=== PATIENT | male | born 1930 | race African-American/Black ===

== ENCOUNTER 2016-08-29 19:15 | Inpatient (IN) | payer BC, OTHER ==
--- NOTE | 2016-08-29 19:38 | PDOC ---
History of Present Illness - General History Source: Patient Exam Limitations: No Limitations - History of Present Illness Initial Comments: 08/29/16 19:41 The patient is a 86 year old male with a significant past medical history of HTN , NIDDM, HLD, who presents to the emergency department complaining of lower back pain s/p syncopal episode. Patient states he fell down but doesn't remember how long he was past out for. He states nobody witnessed the fall. He denies head pain, back pain. He denies nausea, vomiting, diarrhea. PCP: Dr. Chi PAST MEDICAL HISTORY: HTN, NIDDM, HLD PAST SURGICAL HISTORY: Abdominal hernia FAMILY HISTORY: no pertinent history SOCIAL HISTORY: Pt lives with family and is unemployed. MEDICATIONS: reviewed ALLERGIES: As per nursing notes ROS General: No fevers or chills, no weakness, no weight loss HEENT: No change in vision. No sore throat,. No ear pain CardioVascular: No chest pain or shortness of breath Respiratory:No cough, or wheezing. Gastrointestinal: no nausea, vomiting, diarrhea or constipation, No rectal bleeding Genitourinary: No dysuria, hematuria, or frequency Musculoskeletal: + lower back pain. Neurologic: No headache, vertigo, dizziness or loss of consciousness Psychiatric: nor depression Skin: No rashes or easy bruising Endocrine: no increased thirst or abnormal weight change Allergic: no skin or latex allergy All other systems reviewed and normal Exam: General: Well-nourished well-developed individual, no acute distress HEENT: Throat: Normal, tonsils normal, no erythema or exudate Neck: Supple, no meningeal signs, no lymphadenopathy Eyes::Pupils equal reactive and round, extraocular motion intact Chest: Nontender to palpation Cardiac: 2/6 systolic murmur. S1-S2 normal, regular rate and rhythm, no rubs or gallops Respiratory: Lungs clear to auscultation bilateral Abdomen: Soft, nondistended, normal bowel sounds, nontender to palpation diffusely Extremities: Warm, dry, no cyanosis, clubbing, or edema Skin: No rashes Neuro: Alert and oriented x3, nonfocal exam, grossly intact, normal gait Psych: Normal mood and affect <Boone Yeboah - Last Filed: 08/29/16 21:00> - General History Source: Patient Exam Limitations: No Limitations - History of Present Illness Initial Comments: 08/29/16 19:32 A portion of this note was documented by scribe services under my direction. I have reviewed the details of the note, within reason, and agree with the documentation. The case summary and management plan written by me. Assessment and plan: This is an 86 her old male who comes in complaining of coccyx pain status post fall 4 days ago. Patient had a syncopal event at that time and since then said he has been having feelings of dizziness and sensation he was going to pass out. Here in the emergency room patient had a heart rate in the 40s his EKG does show sinus rhythm at a rate of 49 with some new flipped T's laterally when compared to his EKG from 2009. Patient denies any chest pain or shortness of breath that he has been having some coughing. Chest x-ray shows no acute pathology when compared with prior chest x-ray. Coccyx x-ray shows no acute fracture. Hip x-rays show no fractures or dislocations of the prosthesis. Patient's glucose is markedly elevated at 508. He is being given normal saline and was also given 10 units of insulin. Patient is a [id number] diabetic. patient's potassium is mildly elevated at 5.4 which is most likely secondary to his elevated glucose and well returned to normal range with insulin. There are no peak T's or changes on his EKG suggestive of hyperkalemia. Patient will be admitted to a telemetry bed here at [facility] under the service of Dr. Elizondo. Patient's primary care doctor does not admit here in the covering doctor for the patient's primary is out of town so patient will be service patient. <Jarvis Dinh I - Last Filed: 08/29/16 22:31> - General Chief Complaint: Pain Stated Complaint: SACRAL PAIN, S/P FALL Time Seen by Provider: 08/29/16 19:32 Past History <Boone Yeboah - Last Filed: 08/29/16 21:00> - Past Medical History Diabetes: Yes Hypercholesterolemia: Yes - Surgical History Abdominal Surgery: Yes (HERNIA) - Psycho/Social/Smoking Cessation Hx Anxiety: No Suicidal Ideation: No Smoking Status: No Smoking History: Never smoked Number of Cigarettes Smoked Daily: 0 <Jarvis Dinh I - Last Filed: 08/29/16 22:31> - Past Medical History Allergies/Adverse Reactions: Allergies Allergy/AdvReac Type Severity Reaction Status Date / Time No Known Allergies Allergy Verified 08/29/16 19:33 Home Medications: Ambulatory Orders Aspirin [Aspirin EC] 81 mg PO DAILY 08/29/16 Cholecalciferol (Vitamin D3) [Vitamin D3 -] 1,000 unit PO DAILY 08/29/16 Clopidogrel Bisulfate [Clopidogrel] 75 mg PO DAILY 08/29/16 Fluticasone Propionate [Flovent Diskus] 50 mcg IH DAILY 08/29/16 Glimepiride 2 mg PO DAILY 08/29/16 Metoprolol Succinate [Toprol Xl] 50 mg PO DAILY 08/29/16 Simvastatin 40 mg PO HS 08/29/16 *Physical Exam - Vital Signs Last Vital Signs Temp Pulse Resp BP Pulse Ox 98.4 F 50 L 16 181/66 100 08/29/16 19:30 08/29/16 19:30 08/29/16 19:30 08/29/16 19:30 08/29/16 19:30 <Boone Yeboah - Last Filed: 08/29/16 21:00> ED Treatment Course - LABORATORY CBC & Chemistry Diagram: 08/29/16 20:10 08/29/16 20:10 <Boone Yeboah - Last Filed: 08/29/16 21:00> - LABORATORY CBC & Chemistry Diagram: 08/29/16 20:10 08/29/16 20:10 <Jarvis Dinh I - Last Filed: 08/29/16 22:31> *DC/Admit/Observation/Transfer - Attestations Scribe Attestion: 08/29/16 19:43 Documentation prepared by Boone Yeboah, acting as medical recruiter for Jarvis Dinh MD. <Boone Yeboah - Last Filed: 08/29/16 21:00> - Discharge Dispostion Admit: Yes <Jarvis Dinh I - Last Filed: 08/29/16 22:31> Diagnosis at time of Disposition: Hyperglycemia, Syncope, Bradycardia - Discharge Dispostion Condition at time of disposition: Good - Referrals Referrals: Guy Chi MD [Primary Care Provider] -
[2016-08-29 19:41] VITALS: BMI 24.9
[2016-08-29 20:51] LABS: BASOPHIL 1.3 % (0-2.0); EOSINOPHIL 5.4 % (0-4.5); MCH 26.8 pg (25.7-33.7); MCHC 32.8 g/dl (32.0-35.9); MEAN CELL VOLUME 81.4 fl (80-96); MEAN PLT VOLUME 8.2 fl (7.5-11.1); NEUTROPHILS 54.2 % (42.8-82.8); PLATELET COUNT 191 K/MM3 (134-434); RDW 13.8 % (11.9-15.9)
[2016-08-29 20:56] LABS: URINE APPEARANCE Clear; URINE BILIRUBIN Negative (NEGATIVE); URINE BLOOD Trace-lysed (NEGATIVE); URINE GLUCOSE (UA) 2+ (NEGATIVE); URINE KETONE Negative (NEGATIVE); URINE LEUK ESTERASE Negative (NEGATIVE); URINE NITRITE Negative (NEGATIVE); URINE UROBILINOGEN 0.2 E.U/dl (0.2-1.0)
[2016-08-29 20:57] LABS: ALBUMIN 3.7 g/dl (3.5-5.0); ALK PHOS 76 U/L (32-92); ANION GAP 9 (8-16); BILIRUBIN,TOTAL 0.5 mg/dl (0.2-1.0); CALCIUM 8.8 mg/dl (8.4-10.2); CO2 18 mmol/L (22-28); CREATININE 2.4 mg/dl (0.6-1.3); SGOT/AST 23 U/L (10-42); SGPT/ALT 13 U/L (10-40); TOT PROT 7.5 g/dl (6.4-8.3)
[2016-08-29 20:58] LABS: URINE COLOR YELLOW; URINE PROTEIN 1+ (NEGATIVE)
[2016-08-29 21:03] LABS: GLUCOSE,RANDOM 508 mg/dl (74-106)
[2016-08-29] MEDS ORDERED: INSULIN REGULAR HUMAN 100 UNITS/ML *VIAL IVPUSH ONE (21:03)
[2016-08-29] MEDS ORDERED: INSULIN REGULAR HUMAN 100 UNITS/ML *VIAL ONE (21:21)
[2016-08-29 21:29] LABS: TROPONIN I (DFP) 0.05 ng/ml (0.03-0.50)
[2016-08-29] MEDS ORDERED: SODIUM CHLORIDE 1,000 ML IV ONE (21:31)
[2016-08-29 21:53] LABS: CK MB 5.4 ng/ml (0.3-4.0)
[2016-08-29] MEDS ORDERED: HEMOQUE TEST 1 EACH EACH ONE (22:42)
--- NOTE | 2016-08-29 23:21 | HP ---
Admitting History and Physical - Primary Care Physician PCP: Christiana Elizondo - Admission History of Present Illness: The patient is a 86 year old male with a significant past medical history of HTN , NIDDM, HLD, who presents to the emergency department complaining of lower back pain s/p syncopal episode LAST WEEK DAY [place] DID NOT GO SEE DOCTOR THERE. Patient states he fell down but doesn't remember how long he was past out for. He states nobody witnessed the fall. He denies head pain, back pain. He denies nausea, vomiting, diarrhea. PCP: Dr. Chi - Past Medical History Cardiovascular: Yes: HTN, Hyperlipdemia Endocrine: Yes: Diabetes Mellitus - Smoking History Smoking history: Never smoked Have you smoked in the past 12 months: No Aproximately how many cigarettes per day: 0 If you are a former smoker, when did you quit?: 47 YEARS AGO - Alcohol/Substance Use Hx Alcohol Use: No Home Medications - Allergies Allergies/Adverse Reactions: Allergies Allergy/AdvReac Type Severity Reaction Status Date / Time No Known Allergies Allergy Verified 08/29/16 19:33 - Home Medications Home Medications: Ambulatory Orders Aspirin [Aspirin EC] 81 mg PO DAILY 08/29/16 Cholecalciferol (Vitamin D3) [Vitamin D3 -] 1,000 unit PO DAILY 08/29/16 Clopidogrel Bisulfate [Clopidogrel] 75 mg PO DAILY 08/29/16 Fluticasone Propionate [Flovent Diskus] 50 mcg IH DAILY 08/29/16 Simvastatin 40 mg PO HS 08/29/16 Ezetimibe [Zetia -] 10 mg PO DAILY #30 tablet 08/31/16 Insulin (Levemir) [Levemir Vial] 12 units SQ HS #7 ml 08/31/16 Insulin Sliding Scale [Novolog Vial Sliding Scale -] 1 vial SQ TIDAC #7 units Metoprolol Succinate [Toprol XL -] 25 mg PO DAILY #30 bottle 08/31/16 Miscellaneous Medical Supply [Outpatient Order] 1 each ASDIR #1 misc Miscellaneous Medical Supply [Outpatient Order] 1 each ASDIR #1 misc Miscellaneous Medical Supply [Outpatient Order] 1 each ASDIR #1 misc Sodium Bicarbonate - 650 mg PO DAILY #30 tablet 08/31/16 Physical Examination Vital Signs: Vital Signs Temperature 98.4 F 08/29/16 19:30 Pulse Rate 50 L 08/29/16 21:25 Respiratory Rate 16 08/29/16 21:25 Blood Pressure 138/70 08/29/16 21:25 O2 Sat by Pulse Oximetry (%) 100 08/29/16 21:25 Constitutional: Yes: No Distress HENT: Yes: Atraumatic Neck: Yes: Supple Cardiovascular: Yes: Regular Rate and Rhythm Respiratory: Yes: CTA Bilaterally Gastrointestinal: Yes: Normal Bowel Sounds Extremities: Yes: WNL Neurological: Yes: Alert, Oriented Problem List - Problems (1) Bradycardia Assessment/Plan: will monitor on tele hold BB Code(s): R00.1 - BRADYCARDIA, UNSPECIFIED (2) Hyperglycemia Assessment/Plan: uncontrolled dm will check bgms adjust meds Code(s): R73.9 - HYPERGLYCEMIA, UNSPECIFIED (3) Syncope Assessment/Plan: not dizzy now Code(s): R55 - SYNCOPE AND COLLAPSE Qualifiers: Syncope type: unspecified Qualified Code(s): R55 - Syncope and collapse (4) Arthritis Assessment/Plan: prn tylenol Code(s): M19.90 - UNSPECIFIED OSTEOARTHRITIS, UNSPECIFIED SITE Assessment/Plan Laboratory Tests 08/29/16 08/29/16 08/29/16 20:10 20:10 20:10 WBC 5.0 RBC 4.93 Hgb 13.2 Hct 40.1 MCV 81.4 MCHC 32.8 RDW 13.8 Plt Count 191 MPV 8.2 Neutrophils % 54.2 Lymphocytes % 30.5 Monocytes % 8.6 Eosinophils % 5.4 H Basophils % 1.3 Sodium 130 L Potassium 5.4 H Chloride 103 Carbon Dioxide 18 L Anion Gap 9 BUN 29 H Creatinine 2.4 H Creat Clearance w eGFR 25.80 POC Glucometer Random Glucose 508 H* Calcium 8.8 Total Bilirubin 0.5 AST 23 ALT 13 Alkaline Phosphatase 76 Creatine Kinase 176 H CK-MB (CK-2) 5.4 H CK-MB (CK-2) Rel Index 3.0 Troponin I 0.05 Total Protein 7.5 Albumin 3.7 Urine Color Urine Appearance Urine pH Ur Specific [place] Urine Protein Urine Glucose (UA) Urine Ketones Urine Blood Urine Nitrite Urine Bilirubin Urine Urobilinogen Ur Leukocyte Esterase 08/29/16 08/29/16 08/29/16 20:10 20:45 22:45 WBC RBC Hgb Hct MCV MCHC RDW Plt Count MPV Neutrophils % Lymphocytes % Monocytes % Eosinophils % Basophils % Sodium Potassium Chloride Carbon Dioxide Anion Gap BUN Creatinine Creat Clearance w eGFR POC Glucometer [phone] Random Glucose Calcium Total Bilirubin AST ALT Alkaline Phosphatase Creatine Kinase CK-MB (CK-2) Cancelled CK-MB (CK-2) Rel Index Troponin I Total Protein Albumin Urine Color Yellow Urine Appearance Clear Urine pH 5.0 Ur Specific [place] <= 1.005 Urine Protein 1+ H Urine Glucose (UA) 2+ H Urine Ketones Negative Urine Blood Trace-lysed Urine Nitrite Negative Urine Bilirubin Negative Urine Urobilinogen 0.2 e.u/dl Ur Leukocyte Esterase Negative Active Medications Generic Name Dose Route Start Last Admin Trade Name Freq PRN Reason Stop Dose Admin Aspirin 81 mg 08/30/16 10:00 09/01/16 09:28 Ecotrin - PO 81 mg DAILY JUMA Administration Atorvastatin Calcium 20 mg 08/30/16 22:00 08/31/16 21:47 Lipitor - PO 20 mg HS JUMA Administration Clopidogrel Bisulfate 75 mg 08/30/16 10:00 09/01/16 09:28 Plavix - PO 75 mg DAILY JUMA Administration Ezetimibe 10 mg 08/31/16 17:00 09/01/16 09:28 Zetia - PO 10 mg DAILY JUMA Administration Insulin Aspart 1 vial 08/30/16 11:30 09/01/16 12:15 Novolog Vial Sliding Scale - SQ 6 units TIDAC [facility] Administration Protocol Insulin Aspart 0 units 08/30/16 22:00 08/31/16 21:48 Novolog SQ Not Given HS [facility] Protocol Insulin Detemir 12 units 08/31/16 22:00 08/31/16 21:48 Levemir Vial SQ 12 units HS JUMA Administration Metoprolol Succinate 25 mg 08/30/16 10:00 09/01/16 09:28 Toprol Xl - PO 25 mg DAILY JUMA Administration Sodium Bicarbonate 650 mg 08/30/16 10:00 09/01/16 09:28 Sodium Bicarbonate - PO 650 mg DAILY JUMA Administration
[2016-08-30] MEDS ORDERED: INSULIN SLIDING SCALE (NOVOLOG) 1 VIAL SQ SCH (07:00)
--- NOTE | 2016-08-30 07:58 | CON.CARD ---
Consult Consult Specialty:: Cardiology Referred by:: Christiana Elizondo Reason for Consultation:: Syncope - History of Present Illness Chief Complaint: Syncope History of Present Illness: The patient is a 86 year old male with a significant past medical history of CAD s/p PCI(stent), angina pectoris, HTN, NIDDM, HLD, who presents to the emergency department post syncopal episode, preceded by light-headedness. He denies chest pain, dyspnea,palpitations,orthopnea, PND,head trauma or LE edema. PCP: Dr. Chi PAST MEDICAL HISTORY: HTN, NIDDM, HLD PAST SURGICAL HISTORY: Abdominal hernia FAMILY HISTORY: no pertinent history SOCIAL HISTORY: Pt lives with family and is unemployed. MEDICATIONS: reviewed ALLERGIES: As per nursing notes - History Source History Provided By: Patient Limitations to Obtaining History: Poor Historian - Past Medical History Cardio/Vascular: Yes: HTN, Hyperlipdemia Endocrine: Yes: Diabetes Mellitus - Alcohol/Substance Use Hx Alcohol Use: No - Smoking History Smoking history: Never smoked Have you smoked in the past 12 months: No Aproximately how many cigarettes per day: 0 If you are a former smoker, when did you quit?: 47 YEARS AGO Home Medications - Allergies Allergies/Adverse Reactions: Allergies Allergy/AdvReac Type Severity Reaction Status Date / Time No Known Allergies Allergy Verified 08/29/16 19:33 - Home Medications Home Medications: Ambulatory Orders Aspirin [Aspirin EC] 81 mg PO DAILY 08/29/16 Cholecalciferol (Vitamin D3) [Vitamin D3 -] 1,000 unit PO DAILY 08/29/16 Clopidogrel Bisulfate [Clopidogrel] 75 mg PO DAILY 08/29/16 Fluticasone Propionate [Flovent Diskus] 50 mcg IH DAILY 08/29/16 Glimepiride 2 mg PO DAILY 08/29/16 Metoprolol Succinate [Toprol Xl] 50 mg PO DAILY 08/29/16 Simvastatin 40 mg PO HS 08/29/16 Review of Systems - Review of Systems Neurological: reports: Syncope Vital Signs: Vital Signs Temperature 98.4 F 08/30/16 06:36 Pulse Rate 58 L 08/30/16 06:36 Respiratory Rate 17 08/30/16 06:36 Blood Pressure 152/36 08/30/16 06:36 O2 Sat by Pulse Oximetry (%) 100 08/30/16 06:36 Constitutional: Yes: No Distress, Calm Neck: Yes: Supple Respiratory: Yes: Regular, Diminished Gastrointestinal: Yes: Normal Bowel Sounds, Soft Cardiovascular: Yes: Regular Rate and Rhythm JVD: No Heart Sounds: Yes: S1, S2 Murmur: Yes: Systolic Murmur, Grade 1 Edema: No - Other Data SB @ 49 LVH with repol abnl Imaging - Results Cat Scan: Report Reviewed (No bleed) Problem List - Problems (1) Bradycardia Code(s): R00.1 - BRADYCARDIA, UNSPECIFIED (2) Syncope Code(s): R55 - SYNCOPE AND COLLAPSE Qualifiers: Syncope type: unspecified Qualified Code(s): R55 - Syncope and collapse (3) Hypertensive cardiomyopathy Code(s): I11.9 - HYPERTENSIVE HEART DISEASE WITHOUT HEART FAILURE I42.9 - CARDIOMYOPATHY, UNSPECIFIED Qualifiers: Heart failure presence: without heart failure Qualified Code(s): I11.9 - Hypertensive heart disease without heart failure (4) Hyperlipemia Code(s): E78.5 - HYPERLIPIDEMIA, UNSPECIFIED Qualifiers: Hyperlipidemia type: pure hypercholesterolemia Qualified Code(s): E78.00 - Pure hypercholesterolemia, unspecified; E78.0 - Pure hypercholesterolemia (5) Type 2 diabetes mellitus Code(s): E11.9 - TYPE 2 DIABETES MELLITUS WITHOUT COMPLICATIONS Qualifiers: Diabetes mellitus complication status: without complication Assessment/Plan 1.Syncopal episode suspect neurocardiogenic etiology 2. CAD s/p PCI(stent), angina pectoris 3. HTN/HCVD 4. Type 2 DM 5. Hyperlipidemia 6. CKD with hyperkalemia 7. Hyponatremia P:1.Check orthostatic vital signs, monitor and storage bin tender to evaluate for sustained arrhythmia 2. Echocardiogram to assess LV and valve fxn 3. Continue ASA 81 qd, Plavix 75 qd, decrease Toprol XL 25 qd, Lipitor 20 qhs, ideally JL-I/ARB once renal fxn stabilizes and hyperkalemia resolves 4. Thank you for consultative opportunity
--- NOTE | 2016-08-30 08:50 | CONSULT ---
Consult Consult Specialty:: Endocrinoology Referred by:: Dr Elizondo Reason for Consultation:: HYperglycemia - History of Present Illness Chief Complaint: Fall History of Present Illness: This is a 86 year old male with history of HTN, NIDDM for 25 years, HLD, ,CAD s /p stent, CDK (Cr 2.2 in 2015) who presents to the emergency department complaining of lower back pain s/p syncopal episode. Patient states he fell down but doesn't remember how long he was passed out for. Says he got up on hit own. He states nobody witnessed the fall. He was visiting his son in [place]. Gives h/o taking Insulin many years ago. Currently takes Glimepiride and doesn' t do BGM at home. - History Source History Provided By: Patient, Medical Record Limitations to Obtaining History: Poor Historian - Past Medical History Cardio/Vascular: Yes: HTN, Hyperlipdemia Endocrine: Yes: Diabetes Mellitus - Alcohol/Substance Use Hx Alcohol Use: No - Smoking History Smoking history: Never smoked Have you smoked in the past 12 months: No Aproximately how many cigarettes per day: 0 If you are a former smoker, when did you quit?: 47 YEARS AGO Home Medications - Allergies Allergies/Adverse Reactions: Allergies Allergy/AdvReac Type Severity Reaction Status Date / Time No Known Allergies Allergy Verified 08/29/16 19:33 - Home Medications Home Medications: Ambulatory Orders Aspirin [Aspirin EC] 81 mg PO DAILY 08/29/16 Cholecalciferol (Vitamin D3) [Vitamin D3 -] 1,000 unit PO DAILY 08/29/16 Clopidogrel Bisulfate [Clopidogrel] 75 mg PO DAILY 08/29/16 Fluticasone Propionate [Flovent Diskus] 50 mcg IH DAILY 08/29/16 Glimepiride 2 mg PO DAILY 08/29/16 Metoprolol Succinate [Toprol Xl] 50 mg PO DAILY 08/29/16 Simvastatin 40 mg PO HS 08/29/16 Family Disease History - Family Disease History Other Family History: Denies any family h/o DM Review of Systems - Review of Systems Constitutional: reports: No Symptoms Eyes: reports: No Symptoms HENT: reports: No Symptoms Neck: reports: No Symptoms Cardiovascular: reports: No Symptoms Respiratory: reports: No Symptoms Gastrointestinal: reports: No Symptoms Genitourinary: reports: No Symptoms Musculoskeletal: reports: Back Pain Neurological: reports: No Symptoms Endocrine: reports: No Symptoms Physical Exam Vital Signs: Vital Signs Temperature 98.4 F 08/30/16 06:36 Pulse Rate 58 L 08/30/16 06:36 Respiratory Rate 08/30/16 06:36 Blood Pressure 152/36 08/30/16 06:36 O2 Sat by Pulse Oximetry (%) 100 08/30/16 06:36 Constitutional: Yes: No Distress, Calm Eyes: Yes: Conjunctiva Clear, EOM Intact HENT: Yes: Atraumatic, Normocephalic Neck: Yes: Supple, Trachea Midline Cardiovascular: Yes: Regular Rate and Rhythm Respiratory: Yes: Regular, CTA Bilaterally Gastrointestinal: Yes: Normal Bowel Sounds Extremities: Yes: WNL Edema: No Neurological: Yes: Alert, Oriented Assessment/Plan AP: T2DM with hyperglycemia: Check HBA1c D/C Glimepiride Novlog SS coverage Will Check with PCP if any contraindication to DPP4s May need insulin Nutrition consult Start Levemir 10 units daily at HS Syncopal episode CAD s/p PCI(stent): Cardiloogy consult noted HTN/HCVD Hyperlipidemia CKD
--- NOTE | 2016-08-30 09:00 | PN ---
Progress Note (short form) - Note Progress Note: Renal Consult for MIRIAM vs. CKD This is a 86 year old Gentleman with PMhx of, ? CKD (Cr 2.2 in 2015), CAD s/p PCI and stenting, Hypertension, Insulin dependent DM, Hyperlpidemia who presented s/p syncope with history of back pain and found to have BUN/Cr of 89/ 2.4. Pt denies any history of CKD as far as her knows. NO Hx of stones or recurrent UTI. Denies any NSAID use. No recent contrast exposure. Reports frequent urination. No dysuria. No flank pain. No rash. No recent abx use. No SOB, chest pain, Abd pain, N/v/D, Fever, chills. PMHx: as above Allergies: NKDA Family hx: NC Social Hx: No T/A/D ROS: as per HPI, all other perteinnet ros negative Home Meds: Home Medications Medication Instructions Recorded Aspirin [Aspirin EC] 81 mg PO DAILY 08/29/16 Cholecalciferol (Vitamin D3) 1,000 unit PO DAILY 08/29/16 [Vitamin D3 -] Clopidogrel Bisulfate [Clopidogrel] 75 mg PO DAILY 08/29/16 Fluticasone Propionate [Flovent 50 mcg IH DAILY 08/29/16 Diskus] Glimepiride 2 mg PO DAILY 08/29/16 Metoprolol Succinate [Toprol Xl] 50 mg PO DAILY 08/29/16 Simvastatin 40 mg PO HS 08/29/16 Vital Signs Temperature 98.4 F 08/30/16 06:36 Pulse Rate 58 L 08/30/16 06:36 Respiratory Rate 17 08/30/16 06:36 Blood Pressure 152/36 08/30/16 06:36 O2 Sat by Pulse Oximetry (%) 100 08/30/16 06:36 Intake & Output 08/27/16 08/28/16 08/29/16 08/30/16 23:59 23:59 23:59 23:59 Weight 145 lb Gen: NAD, awake and alert HEENT: NC/AT, MMM, No JVD CVS: RRR, No M/R Lungs: CTA, no rales or wheeze Abd: soft NT/ND Ext: No edema, clubbing or cyanosis : No overt bladder distension Neuro: Awake and alert, no focal defects CBC, BMP 08/29/16 20:10 04/10/17 20:10 Laboratory Tests 08/29/16 08/29/16 08/29/16 20:10 20:10 20:10 Eosinophils % 5.4 H Random Glucose 508 H* Calcium 8.8 Creatine Kinase 176 H CK-MB (CK-2) 5.4 H Troponin I 0.05 Albumin 3.7 Urine pH Ur Specific [place] Urine Protein Urine Glucose (UA) 08/29/16 20:45 Eosinophils % Random Glucose Calcium Creatine Kinase CK-MB (CK-2) Troponin I Albumin Urine pH 5.0 Ur Specific [place] <= 1.005 Urine Protein 1+ H Urine Glucose (UA) 2+ H A/P 86 year old Gentleman with PMhx of, ? CKD (Cr 2.2 in 2014), CAD s/p PCI and stenting, Hypertension, Insulin dependent DM, Hyperlpidemia who presented s/p syncope with history of back pain and found to have BUN/Cr of 89/2.4 #MIRIAM vs. CKD Will obtain recoreds from PMD office Check UPCR, FeNa, FeUrea US of kidney and bladder r/o obstruction vs. retention Trial of IVF: NS at 75cc per hour x 24 hours Dose all meds for Cr Cl ~30 no indication for [employer] avoid NSAIDS, JL/ARB for now AM labs pending #Metabolic Acidosis Anion gap 9, likely etiology is CKD Check Urine anion gap Start Sodium Bicarb 650mg Daily #Hyperkalemia likely secondary to MIRIAM/CKD low K diet Trend K #Syncope Cardiology following #Hypertension continue metoprolol if BP not controlled can add CCB (Norvasc) #Hyperglycemia/IDDM Endocrine following #Pseudohyponatremia Corrected Na is 140 #Elevated CPK secondary to fall vs. statin Trend levels Thank you Dean Archer DO
[2016-08-30] MEDS: CLOPIDOGREL BISULFATE 75 MG TABLET (FP) PO SCH (09:39)
[2016-08-30] MEDS: ASPIRIN COATED 81 MG TABLET.EC PO SCH (09:39)
[2016-08-30] MEDS: SODIUM BICARBONATE 650 MG TABLET PO SCH (09:39)
[2016-08-30] MEDS: METOPROLOL SUCCINATE 25 MG TAB.SR.24H (FP) PO SCH (09:40)
[2016-08-30] MEDS: SODIUM CHLORIDE 1,000 ML IV SCH (09:40)
[2016-08-30] MEDS ORDERED: METOPROLOL SUCCINATE 25 MG TAB.SR.24H (FP) PO SCH (10:00)
[2016-08-30] MEDS ORDERED: GLIMEPIRIDE 2 MG TABLET (FP) PO SCH (10:00)
[2016-08-30] MEDS: INSULIN SLIDING SCALE (NOVOLOG) 1 VIAL SQ SCH ×2 (11:30→16:30)
--- NOTE | 2016-08-30 13:40 | EKG ---
Test Reason : Blood Pressure : / mmHG Vent. Rate : 049 BPM Atrial Rate : 049 BPM P-R Int : 182 ms QRS Dur : 078 ms QT Int : 438 ms P-R-T Axes : 061 -32 113 degrees QTc Int : 395 ms SINUS BRADYCARDIA POSSIBLE LEFT ATRIAL ENLARGEMENT LEFT AXIS DEVIATION LEFT VENTRICULAR HYPERTROPHY T WAVE ABNORMALITY, CONSIDER LATERAL ISCHEMIA ABNORMAL ECG WHEN COMPARED WITH ECG OF 05-OCT-2009 12:41, ST NO LONGER ELEVATED IN LATERAL LEADS T WAVE INVERSION NOW EVIDENT IN LATERAL LEADS CLINICAL CORRELATION IS RECOMMENDED Confirmed by ALTA WOOD, AUREA ([id number]) on 08/30/2016 1:40:11 PM Referred By: BRENDAN Confirmed By:AUREA HOLM MD
--- NOTE | 2016-08-30 14:57 | PN ---
Progress Note, Physician History of Present Illness: tail bone pain - Current Medication List Current Medications: Active Medications Aspirin (Ecotrin -) 81 mg PO DAILY JUMA Atorvastatin Calcium (Lipitor -) 20 mg PO HS JUMA Clopidogrel Bisulfate (Plavix -) 75 mg PO DAILY JUMA Sodium Chloride (Normal Saline -) 1,000 mls @ 75 mls/hr IV ASDIR JUMA Insulin Aspart (Novolog Vial Sliding Scale -) 1 vial SQ TIDAC JUMA PRN Reason: Protocol Insulin Aspart (Novolog) 0 units SQ HS JUMA PRN Reason: Protocol Metoprolol Succinate (Toprol Xl -) 25 mg PO DAILY JUMA Sodium Bicarbonate (Sodium Bicarbonate -) 650 mg PO DAILY JUMA - Objective Vital Signs: Vital Signs Temperature 98.2 F 08/30/16 14:16 Pulse Rate 56 L 08/30/16 14:16 Respiratory Rate 18 08/30/16 14:16 Blood Pressure 119/57 08/30/16 14:16 O2 Sat by Pulse Oximetry (%) 100 08/30/16 14:16 Constitutional: Yes: No Distress HENT: Yes: Atraumatic Neck: Yes: Supple Cardiovascular: Yes: Regular Rate and Rhythm Respiratory: Yes: CTA Bilaterally Gastrointestinal: Yes: Normal Bowel Sounds Extremities: Yes: WNL Neurological: Yes: Alert, Oriented Problem List - Problems (1) Bradycardia Assessment/Plan: will monitor on tele hold BB Code(s): R00.1 - BRADYCARDIA, UNSPECIFIED (2) Hyperglycemia Assessment/Plan: uncontrolled dm will check bgms adjust meds Code(s): R73.9 - HYPERGLYCEMIA, UNSPECIFIED (3) Syncope Assessment/Plan: not dizzy now Code(s): R55 - SYNCOPE AND COLLAPSE Qualifiers: Syncope type: unspecified Qualified Code(s): R55 - Syncope and collapse (4) Arthritis Assessment/Plan: prn tylenol Code(s): M19.90 - UNSPECIFIED OSTEOARTHRITIS, UNSPECIFIED SITE
[2016-08-30 19:18] LABS: ALK PHOS 58 U/L (32-92); ANION GAP 7 (8-16); BILIRUBIN,TOTAL 0.6 mg/dl (0.2-1.0); CALCIUM 8.6 mg/dl (8.4-10.2); CO2 21 mmol/L (22-28); CREATININE 2.1 mg/dl (0.6-1.3); GLUCOSE,RANDOM 224 mg/dl (74-106); PHOSPHOROUS 2.3 mg/dl (2.5-4.6); SGOT/AST 24 U/L (10-42); SGPT/ALT 13 U/L (10-40); TOT PROT 6.1 g/dl (6.4-8.3)
[2016-08-30] MEDS: ATORVASTATIN CA 20 MG TABLET (FP) PO SCH (21:11)
[2016-08-30] MEDS ORDERED: INSULIN DETEMIR 100 UNITS/ML MDV SQ SCH (22:00)
[2016-08-30 22:11] LABS: URINE CREATININE 41.4 mg/dL
[2016-08-31] MEDS: Insulin (LOG) Aspart 100 UNITS/ML VIAL SQ SCH ×2 (06:59→21:48)
[2016-08-31] MEDS: INSULIN SLIDING SCALE (NOVOLOG) 1 VIAL SQ SCH ×3 (07:00→17:07)
[2016-08-31 08:46] LABS: BASOPHIL 0.8 % (0-2.0); EOSINOPHIL 6.6 % (0-4.5); MCH 26.6 pg (25.7-33.7); MCHC 32.7 g/dl (32.0-35.9); MEAN CELL VOLUME 81.3 fl (80-96); MEAN PLT VOLUME 7.6 fl (7.5-11.1); NEUTROPHILS 55.2 % (42.8-82.8); PLATELET COUNT 183 K/MM3 (134-434); RDW 13.5 % (11.9-15.9); WHITE BLOOD COUNT 4.1 K/mm3 (4.0-10.0)
--- NOTE | 2016-08-31 08:49 | PN ---
Progress Note (short form) - Note Progress Note: Denies any complaints Blood sugar better today morning on Levemir NO hypos Vital Signs Period Temp Pulse Resp BP Sys/Salmeron Pulse Ox Last 24 Hr 98.2 F-99.0 F 56-65 16-18 119-155/57-59 95-100 PE:Awake alert HEENT: PERRL, EOMI Neck: Supple, No JVD Lungs: CTA CVS: S1S2 Abd: Benign Ext: No edema Neuro: No focal deficit CMP Sodium 135 mmol/L (136-145) L 08/30/16 09:12 Potassium 4.1 mmol/L (3.5-5.1) D 08/30/16 09:12 Chloride 107 mmol/L (98-107) 08/30/16 09:12 Carbon Dioxide 21 mmol/L (22-28) L 08/30/16 09:12 Anion Gap 7 (8-16) L 08/30/16 09:12 BUN 24 mg/dl (7-18) H 08/30/16 09:12 Creatinine 2.1 mg/dl (0.6-1.3) H 08/30/16 09:12 Creat Clearance w eGFR 30.09 (>60) 08/30/16 09:12 POC Glucometer 197 UNITS (()) 08/31/16 05:33 Random Glucose 224 mg/dl (74-106) H D 08/30/16 09:12 Calcium 8.6 mg/dl (8.4-10.2) 08/30/16 09:12 Phosphorus 2.3 mg/dl (2.5-4.6) L 08/30/16 09:12 Total Bilirubin 0.6 mg/dl (0.2-1.0) 08/30/16 09:12 AST 24 U/L (10-42) 08/30/16 09:12 ALT 13 U/L (10-40) 08/30/16 09:12 Alkaline Phosphatase 58 U/L (32-92) D 08/30/16 09:12 Creatine Kinase 176 IU/L (38-174) H 08/29/16 20:10 CK-MB (CK-2) 5.4 ng/ml (0.3-4.0) H 08/29/16 20:10 CK-MB (CK-2) Rel Index 3.0 % (0.0-5.0) 08/29/16 20:10 Troponin I 0.05 ng/ml (0.03-0.50) 08/29/16 20:10 Total Protein 6.1 g/dl (6.4-8.3) L 08/30/16 09:12 Albumin 3.0 g/dl (3.5-5.0) L 08/30/16 09:12 Current Medications Generic Name Dose Route Start Last Admin Trade Name Edward PRN Reason Stop Dose Admin Aspirin 81 mg 08/30/16 10:00 08/30/16 09:39 Ecotrin - PO 81 mg DAILY JUMA Administration Atorvastatin Calcium 20 mg 08/30/16 22:00 08/30/16 21:11 Lipitor - PO 20 mg HS JUMA Administration Clopidogrel Bisulfate 75 mg 08/30/16 10:00 08/30/16 09:39 Plavix - PO 75 mg DAILY JUMA Administration Sodium Chloride 1,000 mls @ 75 mls/hr 08/30/16 09:15 08/30/16 09:40 Normal Saline - IV 75 mls/hr ASDIR JUMA Administration Insulin Aspart 1 vial 08/30/16 11:30 08/31/16 07:00 Novolog Vial Sliding Scale - SQ 4 units TIDAC [facility] Administration Protocol Insulin Aspart 0 units 08/30/16 22:00 08/31/16 06:59 Novolog SQ 4 units HS [facility] Administration Protocol Insulin Detemir 10 units 08/30/16 22:00 08/30/16 21:12 Levemir Vial SQ 10 units HS JUMA Administration Metoprolol Succinate 25 mg 08/30/16 10:00 08/30/16 09:40 Toprol Xl - PO 25 mg DAILY JUMA Administration Sodium Bicarbonate 650 mg 08/30/16 10:00 08/30/16 09:39 Sodium Bicarbonate - PO 650 mg DAILY JUMA Administration AP: T2DM: BGM QACHS Increase Levemer 12 unts daily at HS NOvolog SS HBA1C Pending Teach pt to self inject insulin. Pt says he has used it in the past. If patient is able to do it, will discharge on Insulin Will f/u HTN CAD Syncope CKD HLD
[2016-08-31 08:58] LABS: ALBUMIN 2.8 g/dl (3.5-5.0); ALK PHOS 51 U/L (32-92); ANION GAP 6 (8-16); BILIRUBIN,TOTAL 0.8 mg/dl (0.2-1.0); CALCIUM 8.4 mg/dl (8.4-10.2); CHOLESTEROL 207 mg/dl; CO2 21 mmol/L (22-28); CREATININE 1.8 mg/dl (0.6-1.3); GLUCOSE,RANDOM 199 mg/dl (74-106); MAGNESIUM 1.8 mg/dL (1.8-2.4); PHOSPHOROUS 3.1 mg/dl (2.5-4.6); SGOT/AST 17 U/L (10-42); SGPT/ALT 12 U/L (10-40); TOT PROT 5.5 g/dl (6.4-8.3)
[2016-08-31] MEDS: METOPROLOL SUCCINATE 25 MG TAB.SR.24H (FP) PO SCH (10:56)
[2016-08-31] MEDS: SODIUM CHLORIDE 1,000 ML IV SCH (10:56)
[2016-08-31] MEDS: ASPIRIN COATED 81 MG TABLET.EC PO SCH (10:56)
[2016-08-31] MEDS: SODIUM BICARBONATE 650 MG TABLET PO SCH (10:56)
[2016-08-31] MEDS: CLOPIDOGREL BISULFATE 75 MG TABLET (FP) PO SCH (10:56)
--- NOTE | 2016-08-31 11:08 | PN ---
Progress Note (short form) - Note Progress Note: Renal Follow up for MIRIAM vs. CKD Pt seen and examined at the bedside awake and alert no acute complaints on IVF denies any sob, chest pain no N/V/D Vital Signs Temperature 99.4 F 08/31/16 09:31 Pulse Rate 78 08/31/16 09:31 Respiratory Rate 18 08/31/16 09:31 Blood Pressure 137/63 08/31/16 09:31 O2 Sat by Pulse Oximetry (%) 95 08/31/16 08:15 Intake & Output 08/28/16 08/29/16 08/30/16 08/31/16 23:59 23:59 23:59 23:59 Intake Total 2150 450 Output Total 800 600 Balance 1350 -150 Weight 145 lb Gen: NAD CVS: RRR, + sytolic murmur Lungs: CTA Abd: soft NT/ND Ext: No edema, clubbing or cyanosis CBC, BMP 08/31/16 07:00 08/31/16 07:00 Laboratory Tests 08/31/16 07:00 Calcium 8.4 Phosphorus 3.1 D Magnesium 1.8 Albumin 2.8 L Current Medications Aspirin (Ecotrin -) 81 mg PO DAILY [facility] Last Admin: 08/31/16 10:56 Dose: 81 mg Atorvastatin Calcium (Lipitor -) 20 mg PO HS [facility] Last Admin: 08/30/16 21:11 Dose: 20 mg Clopidogrel Bisulfate (Plavix -) 75 mg PO DAILY [facility] Last Admin: 08/31/16 10:56 Dose: 75 mg Sodium Chloride (Normal Saline -) 1,000 mls @ 75 mls/hr IV ASDIR [facility] Last Admin: 08/31/16 10:56 Dose: 75 mls/hr Insulin Aspart (Novolog Vial Sliding Scale -) 1 vial SQ TIDAC [facility] PRN Reason: Protocol Last Admin: 08/31/16 07:00 Dose: 4 units Insulin Aspart (Novolog) 0 units SQ HS [facility] PRN Reason: Protocol Last Admin: 08/31/16 06:59 Dose: 4 units Insulin Detemir (Levemir Vial) 12 units SQ HS [facility] Metoprolol Succinate (Toprol Xl -) 25 mg PO DAILY [facility] Last Admin: 08/31/16 10:56 Dose: 25 mg Sodium Bicarbonate (Sodium Bicarbonate -) 650 mg PO DAILY [facility] Last Admin: 08/31/16 10:56 Dose: 650 mg A/P 86 year old Gentleman with PMhx of, ? CKD (Cr 2.2 in 2015), CAD s/p PCI and stenting, Hypertension, Insulin dependent DM, Hyperlpidemia who presented s/p syncope with history of back pain and found to have BUN/Cr of 89/2.4 #MIRIAM vs. CKD Renal function is improved awaiting records form PMD office continue fluids for now Dose all meds for Cr Cl less then 30 #Metabolic Acidosis Continue PO sodium bicarb #Hyperkalemia now improved #Syncope Cardiology following #Hypertension continue metoprolol if BP not controlled can add CCB (Norvasc) #Hyperglycemia/IDDM Endocrine following #Elevated CK repeat levels today Thank you Dean Archer DO
[2016-08-31 11:51] LABS: THYROID STIMULATING HORMONE 1.38 uIU/ml (0.358-3.74)
--- NOTE | 2016-08-31 16:41 | PN ---
Progress Note, Physician History of Present Illness: No further near or true syncope, no events on telemetry. - Current Medication List Current Medications: Active Medications Aspirin (Ecotrin -) 81 mg PO DAILY [facility] Last Admin: 08/31/16 10:56 Dose: 81 mg Atorvastatin Calcium (Lipitor -) 20 mg PO HS [facility] Last Admin: 08/30/16 21:11 Dose: 20 mg Clopidogrel Bisulfate (Plavix -) 75 mg PO DAILY [facility] Last Admin: 08/31/16 10:56 Dose: 75 mg Sodium Chloride (Normal Saline -) 1,000 mls @ 75 mls/hr IV ASDIR [facility] Last Admin: 08/31/16 10:56 Dose: 75 mls/hr Insulin Aspart (Novolog Vial Sliding Scale -) 1 vial SQ TIDAC [facility] PRN Reason: Protocol Last Admin: 08/31/16 07:00 Dose: 4 units Insulin Aspart (Novolog) 0 units SQ HS [facility] PRN Reason: Protocol Last Admin: 08/31/16 06:59 Dose: 4 units Insulin Detemir (Levemir Vial) 12 units SQ HS [facility] Metoprolol Succinate (Toprol Xl -) 25 mg PO DAILY [facility] Last Admin: 08/31/16 10:56 Dose: 25 mg Sodium Bicarbonate (Sodium Bicarbonate -) 650 mg PO DAILY [facility] Last Admin: 08/31/16 10:56 Dose: 650 mg - Objective Vital Signs: Vital Signs Temperature 98.4 F 08/31/16 14:20 Pulse Rate 59 L 08/31/16 14:20 Respiratory Rate 18 08/31/16 14:20 Blood Pressure 140/52 08/31/16 14:20 O2 Sat by Pulse Oximetry (%) 100 08/31/16 14:20 Constitutional: Yes: No Distress, Calm Neck: Yes: Supple Cardiovascular: Yes: Regular Rate and Rhythm, Murmur (2/6 SM), S1, S2 Respiratory: Yes: Regular, CTA Bilaterally Gastrointestinal: Yes: Normal Bowel Sounds Edema: No Labs: CBC, BMP 08/31/16 07:00 08/31/16 07:00 - ....Imaging EKG: Report Reviewed (Tele:SR) Problem List - Problems (1) Bradycardia Code(s): R00.1 - BRADYCARDIA, UNSPECIFIED (2) Syncope Code(s): R55 - SYNCOPE AND COLLAPSE Qualifiers: Syncope type: unspecified Qualified Code(s): R55 - Syncope and collapse (3) Hypertensive cardiomyopathy Code(s): I11.9 - HYPERTENSIVE HEART DISEASE WITHOUT HEART FAILURE I42.9 - CARDIOMYOPATHY, UNSPECIFIED Qualifiers: Heart failure presence: without heart failure Qualified Code(s): I11.9 - Hypertensive heart disease without heart failure (4) Hyperlipemia Code(s): E78.5 - HYPERLIPIDEMIA, UNSPECIFIED Qualifiers: Hyperlipidemia type: pure hypercholesterolemia Qualified Code(s): E78.00 - Pure hypercholesterolemia, unspecified; E78.0 - Pure hypercholesterolemia (5) Type 2 diabetes mellitus Code(s): E11.9 - TYPE 2 DIABETES MELLITUS WITHOUT COMPLICATIONS Qualifiers: Diabetes mellitus complication status: without complication (6) Senile calcific aortic valve sclerosis Code(s): I35.0 - NONRHEUMATIC AORTIC (VALVE) STENOSIS Assessment/Plan Echo: Mod-severe aortic valve sclerosis with MG 44 Hg, PG 68 mmHg but does open, normal LV size and fxn, mild cLVH, mild MR, AR, mild-mod TR, RVSP 49 mmHg 1. Syncopal episode suspect neurocardiogenic etiology 2. CAD s/p PCI(stent), angina pectoris 3. HTN/HCVD 4. Type 2 DM 5. Hyperlipidemia 6. CKD with hyperkalemia improved 7. Hyponatremia 8. Aortic valve sclerosis (mod-severe) P:1.Repeat echocardiogram to assess progression aortic valve disease in 6 months 2. Continue ASA 81 qd, Plavix 75 qd, Toprol XL 25 qd, Lipitor 20 qhs and add Zetia 10 qd, ideally JL-I/ARB once renal fxn stabilizes 3. D/c planning with f/u in office
[2016-08-31 16:53] LABS: CPK(DFH) 97 IU/L (38-174)
[2016-08-31] MEDS: EZETIMIBE 10 MG TABLET (FP) PO SCH (17:07)
[2016-08-31] MEDS: ATORVASTATIN CA 20 MG TABLET (FP) PO SCH (21:47)
[2016-08-31] MEDS ORDERED: INSULIN DETEMIR 100 UNITS/ML MDV SQ SCH (22:00)
--- NOTE | 2016-08-31 22:30 | PN ---
Progress Note, Physician History of Present Illness: doing well - Current Medication List Current Medications: Active Medications Aspirin (Ecotrin -) 81 mg PO DAILY [facility] Last Admin: 08/31/16 10:56 Dose: 81 mg Atorvastatin Calcium (Lipitor -) 20 mg PO HS [facility] Last Admin: 08/31/16 21:47 Dose: 20 mg Clopidogrel Bisulfate (Plavix -) 75 mg PO DAILY [facility] Last Admin: 08/31/16 10:56 Dose: 75 mg Ezetimibe (Zetia -) 10 mg PO DAILY [facility] Last Admin: 08/31/16 17:07 Dose: 10 mg Sodium Chloride (Normal Saline -) 1,000 mls @ 75 mls/hr IV ASDIR [facility] Last Admin: 08/31/16 10:56 Dose: 75 mls/hr Insulin Aspart (Novolog Vial Sliding Scale -) 1 vial SQ TIDAC [facility] PRN Reason: Protocol Last Admin: 08/31/16 17:07 Dose: 8 units Insulin Aspart (Novolog) 0 units SQ HS [facility] PRN Reason: Protocol Last Admin: 08/31/16 21:48 Dose: Not Given Insulin Detemir (Levemir Vial) 12 units SQ HS [facility] Last Admin: 08/31/16 21:48 Dose: 12 units Metoprolol Succinate (Toprol Xl -) 25 mg PO DAILY [facility] Last Admin: 08/31/16 10:56 Dose: 25 mg Sodium Bicarbonate (Sodium Bicarbonate -) 650 mg PO DAILY [facility] Last Admin: 08/31/16 10:56 Dose: 650 mg - Objective Vital Signs: Vital Signs Temperature 99.0 F 08/31/16 22:08 Pulse Rate 58 L 08/31/16 22:08 Respiratory Rate 18 08/31/16 22:08 Blood Pressure 132/50 08/31/16 22:08 O2 Sat by Pulse Oximetry (%) 98 08/31/16 22:08 Constitutional: Yes: No Distress HENT: Yes: Atraumatic Neck: Yes: Supple Cardiovascular: Yes: Regular Rate and Rhythm Respiratory: Yes: CTA Bilaterally Gastrointestinal: Yes: Normal Bowel Sounds Extremities: Yes: WNL Neurological: Yes: Alert, Oriented Labs: CBC, BMP 08/31/16 07:00 08/31/16 07:00 Problem List - Problems (1) Bradycardia Assessment/Plan: on low dose bb Code(s): R00.1 - BRADYCARDIA, UNSPECIFIED (2) Hyperglycemia Assessment/Plan: uncontrolled dm on insulin Code(s): R73.9 - HYPERGLYCEMIA, UNSPECIFIED (3) Syncope Assessment/Plan: not dizzy now Code(s): R55 - SYNCOPE AND COLLAPSE Qualifiers: Syncope type: unspecified Qualified Code(s): R55 - Syncope and collapse (4) Arthritis Assessment/Plan: prn tylenol Code(s): M19.90 - UNSPECIFIED OSTEOARTHRITIS, UNSPECIFIED SITE Assessment/Plan
[2016-09-01] MEDS: INSULIN SLIDING SCALE (NOVOLOG) 1 VIAL SQ SCH ×2 (07:09→12:15)
--- NOTE | 2016-09-01 08:43 | PN ---
Progress Note (short form) - Note Progress Note: Denies any complaints Blood sugar improving NO hypos Vital Signs Period Temp Pulse Resp BP Sys/Salmeron Pulse Ox Last 24 Hr 98.4 F-99.4 F 58-78 18-18 132-140/50-63 98-100 PE:Awake alert HEENT: PERRL, EOMI Neck: Supple, No JVD Lungs: CTA CVS: S1S2 Abd: Benign Ext: No edema Neuro: No focal deficit CMP Sodium 138 mmol/L (136-145) 08/31/16 07:00 Potassium 4.2 mmol/L (3.5-5.1) 08/31/16 07:00 Chloride 111 mmol/L (98-107) H 08/31/16 07:00 Carbon Dioxide 21 mmol/L (22-28) L 08/31/16 07:00 Anion Gap 6 (8-16) L 08/31/16 07:00 BUN 22 mg/dl (7-18) H 08/31/16 07:00 Creatinine 1.8 mg/dl (0.6-1.3) H 08/31/16 07:00 Creat Clearance w eGFR 35.95 (>60) 08/31/16 07:00 POC Glucometer 101 UNITS (()) 09/01/16 06:50 Random Glucose 199 mg/dl (74-106) H 08/31/16 07:00 Calcium 8.4 mg/dl (8.4-10.2) 08/31/16 07:00 Phosphorus 3.1 mg/dl (2.5-4.6) D 08/31/16 07:00 Magnesium 1.8 mg/dL (1.8-2.4) 08/31/16 07:00 Total Bilirubin 0.8 mg/dl (0.2-1.0) D 08/31/16 07:00 AST 17 U/L (10-42) D 08/31/16 07:00 ALT 12 U/L (10-40) 08/31/16 07:00 Alkaline Phosphatase 51 U/L (32-92) 08/31/16 07:00 Creatine Kinase 97 IU/L (38-174) 08/31/16 07:00 CK-MB (CK-2) 5.4 ng/ml (0.3-4.0) H 08/29/16 20:10 CK-MB (CK-2) Rel Index 3.0 % (0.0-5.0) 08/29/16 20:10 Troponin I 0.05 ng/ml (0.03-0.50) 08/29/16 20:10 Total Protein 5.5 g/dl (6.4-8.3) L 08/31/16 07:00 Albumin 2.8 g/dl (3.5-5.0) L 08/31/16 07:00 Triglycerides 147 mg/dl (35-160) 08/31/16 07:00 Cholesterol 207 mg/dl 08/31/16 07:00 Total LDL Cholesterol 146 mg/dl 08/31/16 07:00 HDL Cholesterol 32 mg/dl (29-89) 08/31/16 07:00 TSH 1.38 uIU/ml (0.358-3.74) 08/31/16 07:00 Current Medications Generic Name Dose Route Start Last Admin Trade Name Freq PRN Reason Stop Dose Admin Aspirin 81 mg 08/30/16 10:00 08/31/16 10:56 Ecotrin - PO 81 mg DAILY JUMA Administration Atorvastatin Calcium 20 mg 08/30/16 22:00 08/31/16 21:47 Lipitor - PO 20 mg HS JUMA Administration Clopidogrel Bisulfate 75 mg 08/30/16 10:00 08/31/16 10:56 Plavix - PO 75 mg DAILY JUMA Administration Ezetimibe 10 mg 08/31/16 17:00 08/31/16 17:07 Zetia - PO 10 mg DAILY JUMA Administration Sodium Chloride 1,000 mls @ 75 mls/hr 08/30/16 09:15 08/31/16 10:56 Normal Saline - IV 75 mls/hr ASDIR JUMA Administration Insulin Aspart 1 vial 08/30/16 11:30 09/01/16 07:09 Novolog Vial Sliding Scale - SQ Not Given TIDAC [facility] Protocol Insulin Aspart 0 units 08/30/16 22:00 08/31/16 21:48 Novolog SQ Not Given HS [facility] Protocol Insulin Detemir 12 units 08/31/16 22:00 08/31/16 21:48 Levemir Vial SQ 12 units HS [facility] Administration Metoprolol Succinate 25 mg 08/30/16 10:00 08/31/16 10:56 Toprol Xl - PO 25 mg DAILY [facility] Administration Sodium Bicarbonate 650 mg 08/30/16 10:00 08/31/16 10:56 Sodium Bicarbonate - PO 650 mg DAILY JUMA Administration AP: T2DM: Improving blood sugar on Insulin, No hypos BGM QACHS Continue Levemer 12 unts daily at HS NOvolog SS HBA1C Pending Pt shown how to self inject Insulin with daughter. Both confident will be able to do at home. Will f/u HTN CAD Syncope CKD HLD
--- NOTE | 2016-09-01 09:21 | PN ---
Progress Note, Physician History of Present Illness: No further near or true syncope, no events on telemetry. - Current Medication List Current Medications: Active Medications Aspirin (Ecotrin -) 81 mg PO DAILY [facility] Last Admin: 08/31/16 10:56 Dose: 81 mg Atorvastatin Calcium (Lipitor -) 20 mg PO HS [facility] Last Admin: 08/31/16 21:47 Dose: 20 mg Clopidogrel Bisulfate (Plavix -) 75 mg PO DAILY [facility] Last Admin: 08/31/16 10:56 Dose: 75 mg Ezetimibe (Zetia -) 10 mg PO DAILY [facility] Last Admin: 08/31/16 17:07 Dose: 10 mg Sodium Chloride (Normal Saline -) 1,000 mls @ 75 mls/hr IV ASDIR [facility] Last Admin: 08/31/16 10:56 Dose: 75 mls/hr Insulin Aspart (Novolog Vial Sliding Scale -) 1 vial SQ TIDAC [facility] PRN Reason: Protocol Last Admin: 09/01/16 07:09 Dose: Not Given Insulin Aspart (Novolog) 0 units SQ HS [facility] PRN Reason: Protocol Last Admin: 08/31/16 21:48 Dose: Not Given Insulin Detemir (Levemir Vial) 12 units SQ HS [facility] Last Admin: 08/31/16 21:48 Dose: 12 units Metoprolol Succinate (Toprol Xl -) 25 mg PO DAILY [facility] Last Admin: 08/31/16 10:56 Dose: 25 mg Sodium Bicarbonate (Sodium Bicarbonate -) 650 mg PO DAILY [facility] Last Admin: 08/31/16 10:56 Dose: 650 mg - Objective Vital Signs: Vital Signs Temperature 98.3 F 09/01/16 09:02 Pulse Rate 65 09/01/16 09:02 Respiratory Rate 18 09/01/16 09:02 Blood Pressure 110/60 09/01/16 09:02 O2 Sat by Pulse Oximetry (%) 98 09/01/16 08:58 Constitutional: Yes: No Distress, Calm Neck: Yes: Supple Cardiovascular: Yes: Regular Rate and Rhythm, Murmur (2/6 SM) Respiratory: Yes: Regular, CTA Bilaterally Gastrointestinal: Yes: Normal Bowel Sounds, Soft Edema: No Labs: CBC, BMP 08/31/16 07:00 08/31/16 07:00 - ....Imaging EKG: Report Reviewed (Tele: No events) Problem List - Problems (1) Bradycardia Code(s): R00.1 - BRADYCARDIA, UNSPECIFIED (2) Syncope Code(s): R55 - SYNCOPE AND COLLAPSE Qualifiers: Syncope type: unspecified Qualified Code(s): R55 - Syncope and collapse (3) Hypertensive cardiomyopathy Code(s): I11.9 - HYPERTENSIVE HEART DISEASE WITHOUT HEART FAILURE I42.9 - CARDIOMYOPATHY, UNSPECIFIED Qualifiers: Heart failure presence: without heart failure Qualified Code(s): I11.9 - Hypertensive heart disease without heart failure (4) Hyperlipemia Code(s): E78.5 - HYPERLIPIDEMIA, UNSPECIFIED Qualifiers: Hyperlipidemia type: pure hypercholesterolemia Qualified Code(s): E78.00 - Pure hypercholesterolemia, unspecified; E78.0 - Pure hypercholesterolemia (5) Type 2 diabetes mellitus Code(s): E11.9 - TYPE 2 DIABETES MELLITUS WITHOUT COMPLICATIONS Qualifiers: Diabetes mellitus complication status: without complication (6) Senile calcific aortic valve sclerosis Code(s): I35.0 - NONRHEUMATIC AORTIC (VALVE) STENOSIS (7) Chronic kidney disease (CKD) Code(s): N18.9 - CHRONIC KIDNEY DISEASE, UNSPECIFIED Qualifiers: Chronic kidney disease stage: stage 3 (moderate) Qualified Code(s): N18.3 - Chronic kidney disease, stage 3 (moderate) Assessment/Plan Echo: Mod-severe aortic valve sclerosis with MG 44 Hg, PG 68 mmHg but does open, normal LV size and fxn, mild cLVH, mild MR, AR, mild-mod TR, RVSP 49 mmHg 1. Syncopal episode suspect neurocardiogenic etiology 2. CAD s/p PCI(stent), angina pectoris 3. HTN/HCVD 4. Type 2 DM 5. Hyperlipidemia 6. CKD with hyperkalemia improved 7. Aortic valve sclerosis (mod-severe) P:1.Repeat echocardiogram to assess progression aortic valve disease in 6 months 2. Continue ASA 81 qd, Plavix 75 qd, Toprol XL 25 qd, Lipitor 20 qhs and Zetia 10 qd, ideally JL-I/ARB once renal fxn stabilizes 3. D/c planning with f/u in office
[2016-09-01] MEDS: SODIUM CHLORIDE 1,000 ML IV SCH (09:27)
[2016-09-01] MEDS: ASPIRIN COATED 81 MG TABLET.EC PO SCH (09:28)
[2016-09-01] MEDS: METOPROLOL SUCCINATE 25 MG TAB.SR.24H (FP) PO SCH (09:28)
[2016-09-01] MEDS: SODIUM BICARBONATE 650 MG TABLET PO SCH (09:28)
[2016-09-01] MEDS: CLOPIDOGREL BISULFATE 75 MG TABLET (FP) PO SCH (09:28)
[2016-09-01] MEDS: EZETIMIBE 10 MG TABLET (FP) PO SCH (09:28)
--- NOTE | 2016-09-01 09:47 | PN ---
Progress Note (short form) - Note Progress Note: Renal Follow up for MIRIAM vs. CKD Pt seen and examined at the bedside no complaints good urine output Vital Signs Temperature 98.3 F 09/01/16 09:02 Pulse Rate 65 09/01/16 09:02 Respiratory Rate 18 09/01/16 09:02 Blood Pressure 110/60 09/01/16 09:02 O2 Sat by Pulse Oximetry (%) 98 09/01/16 08:58 Intake & Output 08/29/16 08/30/16 08/31/16 09/01/16 23:59 23:59 23:59 23:59 Intake Total 2150 2150 1775 Output Total 800 1200 600 Balance 0593 358 7754 Weight 145 lb Gen: NAD CVS: RRR, + sytolic murmur Lungs: CTA Abd: soft NT/ND Ext: No edema, clubbing or cyanosis CBC, BMP 08/31/16 07:00 08/31/16 07:00 todays labs pending Current Medications Aspirin (Ecotrin -) 81 mg PO DAILY [facility] Last Admin: 09/01/16 09:28 Dose: 81 mg Atorvastatin Calcium (Lipitor -) 20 mg PO HS [facility] Last Admin: 08/31/16 21:47 Dose: 20 mg Clopidogrel Bisulfate (Plavix -) 75 mg PO DAILY [facility] Last Admin: 09/01/16 09:28 Dose: 75 mg Ezetimibe (Zetia -) 10 mg PO DAILY [facility] Last Admin: 09/01/16 09:28 Dose: 10 mg Insulin Aspart (Novolog Vial Sliding Scale -) 1 vial SQ TIDAC [facility] PRN Reason: Protocol Last Admin: 09/01/16 07:09 Dose: Not Given Insulin Aspart (Novolog) 0 units SQ HS [facility] PRN Reason: Protocol Last Admin: 08/31/16 21:48 Dose: Not Given Insulin Detemir (Levemir Vial) 12 units SQ HS [facility] Last Admin: 08/31/16 21:48 Dose: 12 units Metoprolol Succinate (Toprol Xl -) 25 mg PO DAILY [facility] Last Admin: 09/01/16 09:28 Dose: 25 mg Sodium Bicarbonate (Sodium Bicarbonate -) 650 mg PO DAILY [facility] Last Admin: 09/01/16 09:28 Dose: 650 mg A/P 86 year old Gentleman with PMhx of, ? CKD (Cr 2.2 in 2015), CAD s/p PCI and stenting, Hypertension, Insulin dependent DM, Hyperlpidemia who presented s/p syncope with history of back pain and found to have BUN/Cr of 89/2.4 #MIRIAM vs. CKD Renal function improved as of yesterday todays labs are pending, ordered BMP if BUN/Cr stable or improved pt is ok for discharge with outpatient follow up our office will contact the patient to schedule the follow up pt advised to avoid nsaids, fleet enemas and maintain good oral fluid intake pt would benifit form a ACEi or ARB but can be started as outpatient #Metabolic Acidosis Continue PO sodium bicarb daily #Syncope Cardiology following Thank you Dean Archer DO
[2016-09-01 12:01] LABS: ANION GAP 9 (8-16); CALCIUM 8.5 mg/dl (8.4-10.2); CO2 22 mmol/L (22-28); CREATININE 1.8 mg/dl (0.6-1.3); GLUCOSE,RANDOM 250 mg/dl (74-106)
[2016-09-01 12:06] LABS: COCKROFT - GAULT NT
[2016-09-01 14:05] VITALS: BP 128/49; PULSE 52; TEMP 97.5
--- NOTE | 2016-09-01 15:25 | DS ---
Physical Examination Vital Signs: Vital Signs Temperature 97.5 F L 09/01/16 14:04 Pulse Rate 52 L 09/01/16 14:04 Respiratory Rate 18 09/01/16 14:04 Blood Pressure 128/49 09/01/16 14:04 O2 Sat by Pulse Oximetry (%) 99 09/01/16 14:04 Constitutional: Yes: No Distress HENT: Yes: Atraumatic Neck: Yes: Supple Cardiovascular: Yes: Regular Rate and Rhythm Respiratory: Yes: CTA Bilaterally Gastrointestinal: Yes: Normal Bowel Sounds Extremities: Yes: WNL Neurological: Yes: Alert, Oriented Labs: CBC, BMP 09/01/16 10:20 Discharge Summary Reason For Visit: SACRAL PAIN, S/P FALL Current Active Problems Bradycardia (Acute) Chronic kidney disease (CKD) (Acute) Hyperglycemia (Acute) Hyperlipemia (Acute) Hypertensive cardiomyopathy (Acute) Senile calcific aortic valve sclerosis (Acute) Syncope (Acute) Type 2 diabetes mellitus (Acute) Condition: Good - Instructions Referrals: Guy Chi MD [Primary Care Provider] - - Home Medications Comprehensive Discharge Medication List: Ambulatory Orders Aspirin [Aspirin EC] 81 mg PO DAILY 08/29/16 Cholecalciferol (Vitamin D3) [Vitamin D3 -] 1,000 unit PO DAILY 08/29/16 Clopidogrel Bisulfate [Clopidogrel] 75 mg PO DAILY 08/29/16 Fluticasone Propionate [Flovent Diskus] 50 mcg IH DAILY 08/29/16 Simvastatin 40 mg PO HS 08/29/16 Ezetimibe [Zetia -] 10 mg PO DAILY #30 tablet 08/31/16 Insulin (Levemir) [Levemir Vial] 12 units SQ HS #7 ml 08/31/16 Insulin Sliding Scale [Novolog Vial Sliding Scale -] 1 vial SQ TIDAC #7 units Metoprolol Succinate [Toprol XL -] 25 mg PO DAILY #30 bottle 08/31/16 Miscellaneous Medical Supply [Outpatient Order] 1 each ASDIR #1 misc Miscellaneous Medical Supply [Outpatient Order] 1 each ASDIR #1 misc Miscellaneous Medical Supply [Outpatient Order] 1 each ASDIR #1 misc Sodium Bicarbonate - 650 mg PO DAILY #30 tablet 08/31/16 wa home see your doctor 1 week
== END 2016-09-01 16:00 | disposition home or self-care (01) | DRG 683 ==
LOC: FER 19:15 → FM/S 22:43 → OBSVTOIN 08-31 22:41
PROVIDERS: ADMIT Internal Medicine; ATTEND Internal Medicine
DX: N17.9 Acute kidney failure, unspecified (principal); E87.1 Hypo-osmolality and hyponatremia; E87.2 Acidosis; I42.8 Other cardiomyopathies; I13.10 Hypertensive heart and chronic kidney disease without heart failure, with stage 1 through stage 4 chronic kidney disease, or unspecified chronic kidney disease; R00.1 Bradycardia, unspecified; I10 Essential (primary) hypertension; E78.5 Hyperlipidemia, unspecified; M54.5 Low back pain; M19.90 Unspecified osteoarthritis, unspecified site; K46.9 Unspecified abdominal hernia without obstruction or gangrene; R55 Syncope and collapse; I25.118 Atherosclerotic heart disease of native coronary artery with other forms of angina pectoris; E87.5 Hyperkalemia; N18.3 Chronic kidney disease, stage 3 (moderate); E11.22 Type 2 diabetes mellitus with diabetic chronic kidney disease; E11.65 Type 2 diabetes mellitus with hyperglycemia; I35.8 Other nonrheumatic aortic valve disorders; Z79.4 Long term (current) use of insulin; Z95.5 Presence of coronary angioplasty implant and graft; Z87.891 Personal history of nicotine dependence; W18.39XA Other fall on same level, initial encounter; Y93.89 Activity, other specified; Y92.098 Other place in other non-institutional residence as the place of occurrence of the external cause
CPT/HCPCS: 36415; 70450-TC; 71010-TC; 72170-TC; 72220-TC; 76775-TC; 76856-TC; 80048; 80053; 80061; 81003; 81015; 82550; 82553; 82570; 83036; 83735; 84100; 84156; 84300; 84443; 84484; 84540; 85025; 93005; 93306-TC; 99283-25; G0378

== ENCOUNTER 2016-09-02 16:53 | Emergency (ER) | payer BC ==
--- NOTE | 2016-09-02 17:09 | PDOC ---
History of Present Illness - General History Source: Patient Exam Limitations: No Limitations - History of Present Illness Initial Comments: 09/02/16 17:19 The patient is a 86 year old male, with a significant past medical history of HTN, NIDDM, HLD, s/p syncopal event recently who presents to the emergency department being unable to fill his insulin prescription. Patient reports being admitted to the hospital recently s/p syncopal episode and discharged levemir and novolog. While in the hospital he was trained to use the insulin pen (not the vile). When he arrived at the pharmacy today they found an error in the prescription and was not able to reach the physician. He denies any complaints upon ED arrival. Last meal was a late breakfast and his blood glucose today was elevated in the 400s. He denies any recent fevers, chills, headache or dizziness. He denies any recent nausea, vomit, diarrhea or constipation. He denies any recent chest pain or shortness of breath. He denies any recent dysuria, frequency, urgency or hematuria. Allergies: NKA Past surgical history: None reported. Social History: Nonsmoker. Denies EtOH use and recreational drug use. <Giancarlo Baez - Last Filed: 09/02/16 17:19> - General History Source: Patient Exam Limitations: No Limitations <Amarilis Benavides - Last Filed: 09/04/16 14:39> - General Chief Complaint: Blood Sugar Problem Stated Complaint: ELEVATED BLOOD GLUCOSE Time Seen by Provider: 09/02/16 17:05 Past History <Giancarlo Baze - Last Filed: 09/02/16 17:19> - Past Medical History Cardiac Disorders: Yes (STENT X1) Diabetes: Yes Disorders: Yes HTN: Yes Hypercholesterolemia: Yes - Surgical History Abdominal Surgery: Yes (HERNIA) - Psycho/Social/Smoking Cessation Hx Anxiety: No Suicidal Ideation: No Smoking Status: No Smoking History: Never smoked Have you smoked in the past 12 months: No Number of Cigarettes Smoked Daily: 0 If you are a former smoker, when did you quit?: 47 YEARS AGO Hx Alcohol Use: No Drug/Substance Use Hx: No Substance Use Type: None <Amarilis Benavides - Last Filed: 09/04/16 14:39> - Past Medical History Allergies/Adverse Reactions: Allergies Allergy/AdvReac Type Severity Reaction Status Date / Time No Known Allergies Allergy Verified 09/02/16 17:05 Home Medications: Ambulatory Orders Aspirin [Aspirin EC] 81 mg PO DAILY 08/29/16 Cholecalciferol (Vitamin D3) [Vitamin D3 -] 1,000 unit PO DAILY 08/29/16 Clopidogrel Bisulfate [Clopidogrel] 75 mg PO DAILY 08/29/16 Simvastatin 40 mg PO HS 08/29/16 Ezetimibe [Zetia -] 10 mg PO DAILY #30 tablet 08/31/16 Insulin (Levemir) [Levemir Vial] 12 units SQ HS #7 ml 08/31/16 Insulin Sliding Scale [Novolog Vial Sliding Scale -] 1 vial SQ TIDAC #7 units Metoprolol Succinate [Toprol XL -] 25 mg PO DAILY #30 bottle 08/31/16 Sodium Bicarbonate - 650 mg PO DAILY #30 tablet 08/31/16 Insulin (Levemir) [Levemir Flexpen -] 12 units SQ HS #1 pen 09/02/16 Insulin Aspart [Novolog Flexpen] 100 unit SQ TID #2 insuln.pen 09/02/16 Review of Systems - Review of Systems Comments:: 09/02/16 17:19 GENERAL/CONSTITUTIONAL: No: fever, chills, weakness, loss of appetite. HEAD, EYES, EARS, NOSE AND THROAT: No: change in vision, ear pain, discharge, sore throat, throat swelling. CARDIOVASCULAR: No: chest pain, lightheadedness, palpitations, syncope RESPIRATORY: No: cough, shortness of breath, wheezing, hemoptysis, stridor. GASTROINTESTINAL: No: nausea, vomiting, diarrhea, abdominal cramping, rectal bleeding, constipation. GENITOURINARY: No: dysuria, hematuria, frequency, urgency, flank pain. MUSCULOSKELETAL: No: back pain, neck pain, joint pain, muscle swelling or pain SKIN : No: lesions, pallor, rash or easy bruising. NEUROLOGIC: No: headache, vertigo, paresthesias, weakness ENDOCRINE: No: unexplained weight gain or loss HEMATOLOGIC/LYMPHATIC: No: anemia, easy bleeding, swelling nodes. <Giancarlo Baez - Last Filed: 09/02/16 17:19> *Physical Exam - Physical Exam Comments: 09/02/16 17:19 GENERAL: The patient is in no acute distress. HEAD: Normal with no signs of trauma. EYES: PERRLA, EOMI, sclera anicteric, conjunctiva clear. ENT: Ears normal, nares patent, oropharynx clear without exudates. Dry mucous membranes. NECK: Normal range of motion, supple without lymphadenopathy, JVD, or masses. LUNGS: Breath sounds equal, clear to auscultation bilaterally. No wheezes, and no crackles. HEART: Regular rate and rhythm, normal S1 and S2 without murmur, rub or gallop. ABDOMEN: Soft, nontender, normoactive bowel sounds. No guarding, no rebound. No masses palpable. EXTREMITIES: Normal range of motion, no edema. No clubbing or cyanosis. No erythema, or tenderness. NEUROLOGICAL: Cranial nerves II through XII grossly intact. Normal speech. No focal neurological deficits. MUSCULOSKELETAL: Back non-tender to palpation, no CVA tenderness SKIN: Warm, Dry, normal turgor, no rashes or lesions noted. <Giancarlo Baez - Last Filed: 09/02/16 17:19> Medical Decision Making - Medical Decision Making 09/02/16 17:09 A portion of this note was documented by scribe services under my direction. I have reviewed the details of the note, within reason, and agree with the documentation with the following case summary and management plan written by me. Nursing documentation reviewed and incorporated into medical decision making 86 yo M h/o HTN, NIDDM, HLD, s/p syncopal event recently, s/p admission. Pt discharged yesterday and returns to day because he was unable to get his prescriptions from the pharmacy AND the prescriptions that were sent were for vials of insulin NOT flex pens (which he was trained on in the hospital) Pt blood glucose 400s He had a late breakfast (eggs, stacy, grits) Pt has no other complaints at this time Will attempt to resent prescriptions Pt original Novolog Sliding Scale had no parameters I have contacted Pt Physician, no response I have reviewed pt sliding scale from the hospital I have used this sliding scale to prescribe patient's Novolog Pt given Insulin Pt blood glucose rechecked it is 380s Will discharge to home Return to the ER for any other concerns or complaints <Amarilis Benavides - Last Filed: 09/04/16 14:39> *DC/Admit/Observation/Transfer - Attestations Scribe Attestion: 09/02/16 17:20 Documentation prepared by Giancarlo Baez, acting as medical anthropology director for Amarilis Benavides MD. <Giancarlo Baez - Last Filed: 09/02/16 17:19> - Discharge Dispostion Admit: No <Amarilis Benavides - Last Filed: 09/04/16 14:39> Diagnosis at time of Disposition: Hyperglycemia - Discharge Dispostion Disposition: HOME Condition at time of disposition: Stable - Prescriptions Prescriptions: Insulin (Levemir) [Levemir Flexpen -] 12 units SQ HS #1 pen Insulin Aspart [Novolog Flexpen] 100 unit SQ TID #2 insuln.pen - Referrals Referrals: Guy Chi MD [Primary Care Provider] -
[2016-09-02] MEDS ORDERED: INSULIN (NOVOLOG) ASPART 100 UNITS/ML 10ML VIAL SQ ONE (17:16)
[2016-09-02] MEDS ORDERED: INSULIN (NOVOLOG) ASPART 100 UNITS/ML 10ML VIAL ONE (17:29)
[2016-09-02 17:44] VITALS: BP 177/72; PULSE 57; TEMP 98.2; BMI 25.7
[2016-09-02] MEDS ORDERED: HEMOQUE TEST 1 EACH EACH ONE (18:19)
== END 2016-09-02 18:57 | disposition home or self-care (01) ==
LOC: FER 16:53
PROC: 3E013VG Introduction of Insulin into Subcutaneous Tissue, Percutaneous Approach (ICD-10-PCS; principal; 2016-09-02)
DX: E11.65 Type 2 diabetes mellitus with hyperglycemia (principal); Z79.4 Long term (current) use of insulin; I25.10 Atherosclerotic heart disease of native coronary artery without angina pectoris; I10 Essential (primary) hypertension; Z95.5 Presence of coronary angioplasty implant and graft; E78.00 Pure hypercholesterolemia, unspecified; Z87.438 Personal history of other diseases of male genital organs
CPT/HCPCS: 96372; 99281-25

== ENCOUNTER 2017-05-16 11:01 | Emergency (ER) | payer BC, OTHER ==
[2017-05-16 11:14] VITALS: TEMP 97.9; BMI 26.6
--- NOTE | 2017-05-16 12:18 | PDOC ---
History of Present Illness - General Chief Complaint: Shortness of Breath Stated Complaint: PAIN Time Seen by Provider: 05/16/17 11:53 - History of Present Illness Initial Comments: 05/16/17 14:21 87M with hx of dm presents with articular pain bilaterally focused on right elbow, left shoulder , with no recent overexertion or trauma but URI recently. Denies cp, sob, palpitation, n/v, back pain, abd pain 05/16/17 14:25 Past History - Past Medical History Allergies/Adverse Reactions: Allergies Allergy/AdvReac Type Severity Reaction Status Date / Time No Known Allergies Allergy Verified 05/16/17 11:09 Home Medications: Ambulatory Orders Aspirin [Aspirin EC] 81 mg PO DAILY 08/29/16 Cholecalciferol (Vitamin D3) [Vitamin D3 -] 1,000 unit PO DAILY 08/29/16 Clopidogrel Bisulfate [Clopidogrel] 75 mg PO DAILY 08/29/16 Simvastatin 40 mg PO HS 08/29/16 Ezetimibe [Zetia -] 10 mg PO DAILY #30 tablet 08/31/16 Insulin (Levemir) [Levemir Vial] 12 units SQ HS #7 ml 08/31/16 Insulin Sliding Scale [Novolog Vial Sliding Scale -] 1 vial SQ TIDAC #7 units Metoprolol Succinate [Toprol XL -] 25 mg PO DAILY #30 bottle 08/31/16 Sodium Bicarbonate - 650 mg PO DAILY #30 tablet 08/31/16 Insulin Aspart [Novolog Flexpen] 100 unit SQ TID #2 insuln.pen 09/02/16 Cardiac Disorders: Yes (STENT X1) COPD: No Diabetes: Yes Disorders: Yes HTN: Yes Hypercholesterolemia: Yes - Surgical History Abdominal Surgery: Yes (HERNIA) Cardiac Surgery: Yes (card stent x 2) - Suicide/Smoking/Psychosocial Hx Smoking Status: No Smoking History: Never smoked Have you smoked in the past 12 months: No Number of Cigarettes Smoked Daily: 0 If you are a former smoker, when did you quit?: 47 YEARS AGO Information on smoking cessation initiated: No Hx Alcohol Use: No Drug/Substance Use Hx: No Substance Use Type: None Review of Systems - Review of Systems Able to Perform ROS?: Yes Is the patient limited [place] proficient: No Constitutional: No: Symptoms Reported HEENTM: No: Symptoms Reported Respiratory: No: Symptoms reported Cardiac (ROS): No: Symptoms Reported ABD/GI: No: Symptoms Reported : No: Symptoms Reported Musculoskeletal: Yes: See HPI Integumentary: No: Symptoms Reported Neurological: No: Symptoms reported *Physical Exam - Vital Signs Last Vital Signs Temp Pulse Resp BP Pulse Ox 97.9 F 64 18 146/66 100 05/16/17 11:09 05/16/17 11:09 05/16/17 11:09 05/16/17 11:09 05/16/17 11:09 - Physical Exam General Appearance: Yes: Nourished, Appropriately Dressed. No: Apparent Distress HEENT: positive: EOMI, [place], Other (left burst ocular capillary) Neck: negative: Tender Respiratory/Chest: positive: Lungs Clear, Normal Breath Sounds. negative: Chest Tender, Respiratory Distress Cardiovascular: positive: Regular Rhythm, Regular Rate, S1, S2 Gastrointestinal/Abdominal: positive: Normal Bowel Sounds, Flat, Soft. negative : Tender Musculoskeletal: positive: Normal Inspection. negative: CVA Tenderness, Muscle Spasm, Vertebral Tenderness Extremity: positive: Normal Capillary Refill, Normal Inspection, Normal Range of Motion Neurologic: positive: Fully Oriented, Alert, Normal Mood/Affect, Normal Response , Motor Strength 5/5 ED Treatment Course - LABORATORY CBC & Chemistry Diagram: 05/16/17 12:50 05/16/17 12:50 Medical Decision Making - Medical Decision Making 05/16/17 14:27 Chronic renal failure 38/2.5 will give gentle hydration will notify dr. bagley Called dr. chi's office, has had creatinine of 2.5 for the past [address] riley. PAtient d/c with appointment to Dr. Chi's office since no acute issues. 05/16/17 15:32 Appointment set May 25 at 9:30am *DC/Admit/Observation/Transfer Diagnosis at time of Disposition: Joint pain - Discharge Dispostion Disposition: HOME Admit: No - Referrals - Patient Instructions Printed Discharge Instructions: How to Avoid a Cold or Flu Additional Instructions: Come back to ER for any new, worsening or concerning symptoms. Follow up with appointment with Dr Chi's office. - Post Discharge Activity
--- NOTE | 2017-05-16 12:20 | PDOC ---
Attending Attestation - Resident Resident Name: Kelby Escobar - ED Attending Attestation I have performed the following: I have examined & evaluated the patient, The case was reviewed & discussed with the resident, I agree w/resident's findings & plan, Exceptions are as noted - HPI HPI: 05/16/17 12:19 87y F hx of dm, presents with body aches for hte psat few days particulary in his right elbow, L shoulder, no recent trauma/injries. +uri recently no cp, sob, palpatitions, n/v, back pain, abd pain on exam pt in no disterss pulm exam clear abd soft notnender, nondistended no LE edema labs onted for acute on chronic renal failure will give gentle hydration will observe for mary alice will notify dr. bagley 05/16/17 14:40 discused with PMD pt known ckd will hduyrate and will d/c with outpatient management I discussed the physical exam findings, ancillary test results and final diagnoses with the patient. I answered all of the patient's questions. The patient was satisfied with the care received and felt comfortable with the discharge plan and treatment plan. The patient will call their primary care physician within 24 hours to arrange follow-up and will return to the Emergency Department with any new, persistent or worsening symptoms. - Physicial Exam PE: 05/16/17 18:26 see above - Medical Decision Making 05/16/17 18:26 see above Heart Score/ECG Review - ECG Impressions Comment:: 05/16/17 18:26 Twelve-lead EKG was performed and reviewed by me. There is normal sinus rhythm with a rate of 52 Left axis devaitaion tw in lateral leads
[2017-05-16 12:57] LABS: BASO % 0.8 % (0-2.0); EOS # 0.3 # (0-4.5); EOS % 5.6 % (0-4.5); MCH 26.7 pg (25.7-33.7); MCHC 32.2 g/dl (32.0-35.9); MEAN CELL VOLUME 82.9 fl (80-96); MONO # 0.5 # (3.8-10.2); NEUT # 3.2 # (42.8-82.8); NEUT % 64.2 % (42.8-82.8); PLATELET COUNT 156 K/MM3 (134-434)
[2017-05-16 13:20] LABS: URINE APPEARANCE CLEAR; URINE BILIRUBIN NEGATIVE (NEGATIVE); URINE BLOOD NEGATIVE (NEGATIVE); URINE COLOR LTYELLOW; URINE GLUCOSE (UA) NEGATIVE (NEGATIVE); URINE KETONE NEGATIVE (NEGATIVE); URINE LEUK ESTERASE NEGATIVE (NEGATIVE); URINE NITRITE NEGATIVE (NEGATIVE); URINE UROBILINOGEN NEGATIVE mg/dL (0.2-1.0)
[2017-05-16 13:27] LABS: ANION GAP 5 (8-16); BILIRUBIN,TOTAL 0.3 mg/dL (0.2-1.0); CO2 27 mmol/L (21-32); CREATININE 2.5 mg/dL (0.7-1.3); GLUCOSE,RANDOM 139 mg/dL (74-106); SGOT/AST 14 U/L (15-37); SGPT/ALT 16 U/L (12-78); TOT PROT 6.7 g/dl (6.4-8.2)
[2017-05-16 13:28] LABS: ALK PHOS 61 U/L (45-117)
[2017-05-16 13:48] LABS: URINE PROTEIN 1+ (NEGATIVE)
[2017-05-16 13:59] LABS: URINE RBC 1 /hpf (0-3); URINE WBC <1 /hpf (3-5)
[2017-05-16] MEDS ORDERED: SODIUM CHLORIDE 500 ML IV STA (14:04)
[2017-05-16 15:33] VITALS: BP 170/79; PULSE 52
[2017-05-16 16:56] LABS: ERYTHROCYTE SEDIMENTATION RATE 25 mm/hr (0-20)
[2017-05-16 18:57] LABS: URINE LEUK ESTERASE Negative (NEGATIVE)
--- NOTE | 2017-05-17 13:07 | EKG ---
Test Reason : Blood Pressure : / mmHG Vent. Rate : 052 BPM Atrial Rate : 052 BPM P-R Int : 208 ms QRS Dur : 078 ms QT Int : 426 ms P-R-T Axes : 063 -30 131 degrees QTc Int : 396 ms SINUS BRADYCARDIA POSSIBLE LEFT ATRIAL ENLARGEMENT LEFT AXIS DEVIATION T WAVE ABNORMALITY, CONSIDER LATERAL ISCHEMIA ABNORMAL ECG WHEN COMPARED WITH ECG OF 29-AUG-2016 21:18, NO SIGNIFICANT CHANGE WAS FOUND Confirmed by LILIA GROVES MD ([id number]) on 05/17/2017 1:06:34 PM Referred By: Confirmed By:LILIA GROVES MD
== END 2017-05-16 15:35 | disposition home or self-care (01) ==
LOC: JER 11:01
PROC: 3E0337Z Introduction of Electrolytic and Water Balance Substance into Peripheral Vein, Percutaneous Approach (ICD-10-PCS; principal; 2017-05-16)
DX: M25.521 Pain in right elbow (principal); M25.512 Pain in left shoulder; I25.10 Atherosclerotic heart disease of native coronary artery without angina pectoris; I10 Essential (primary) hypertension; Z95.5 Presence of coronary angioplasty implant and graft; Z79.4 Long term (current) use of insulin; E78.00 Pure hypercholesterolemia, unspecified; Z79.82 Long term (current) use of aspirin
CPT/HCPCS: 36415; 71010-TC; 80053; 81003; 81015; 85025; 85651; 93005; 93010; 99285-25

== ENCOUNTER 2017-09-18 12:10 | Observation (INO) | payer BC ==
--- NOTE | 2017-09-18 12:23 | PDOC ---
History of Present Illness - General Chief Complaint: Pain Stated Complaint: LEFT CHEST PAIN Time Seen by Provider: 09/18/17 12:23 - History of Present Illness Initial Comments: 09/18/17 15:34 Chief complaint: Chest pain History of present illness: After awakening this morning, patient experienced left sided chest pain, described as a tightness, which radiated to his left arm. There was mild nausea, no diaphoresis, no shortness of breath. The pain persisted approximately 1-1/2 hours, and he drove himself to the emergency room. Upon arrival, the pain subsided. He has no chest pain, nausea, or shortness of breath at present. He is not certain whether he took his medication this morning, including his morning dose of aspirin. Review of systems: As noted above. Otherwise negative. No fever/chills, URI symptoms, sore throat, cough, diaphoresis, abdominal pain, hematemesis, melena, bloody stool, urinary tract symptoms, visual or focal neurologic symptoms. He admits that he felt slightly lightheaded when he had the pain, but this is resolved as well. He also admits that for the past several months he has had increasing dyspnea on exertion which resolves with rest. Past medical history: Insulin-dependent diabetes, high blood pressure, elevated cholesterol, coronary artery disease with multiple stents, placed many years ago. No recent angina or other chest pain until today. Social history: Lives with his , fully active and cares for himself, no tobacco alcohol or nonprescription drugs Family history: Significant for diabetes and coronary artery disease Physical exam: Alert and oriented 3, well-developed well-nourished, no acute distress, cheerful and cooperative. No chest pain or present Afebrile, vital signs normal HEENT: Fundi benign, ENT clear Neck supple without bruit mass or nodes Chest clear to P&A, no rales rhonchi or wheezes. Full breath sounds bilaterally CV S1 and S2 distant, 2/6 systolic ejection murmur in the aortic area without radiation, no JVD or edema, no bruits Abdomen soft nontender without mass or organomegaly Extremities no CCE Neurological intact Skin clear, no rash, adequate turgor and wet mucous membranes Impression: Significant chest pain this morning lasting greater than one hour, in a patient with known coronary artery disease and multiple stents. Rule out acute coronary syndrome Plan: Serial EKG and enzymes, observation, and further therapy depending on results. Past History - Past Medical History Allergies/Adverse Reactions: Allergies Allergy/AdvReac Type Severity Reaction Status Date / Time No Known Allergies Allergy Verified 09/18/17 12:12 Home Medications: Ambulatory Orders Aspirin [Aspirin EC] 81 mg PO DAILY 08/29/16 Cholecalciferol (Vitamin D3) [Vitamin D3 -] 5,000 unit PO DAILY 08/29/16 Clopidogrel Bisulfate [Clopidogrel] 75 mg PO DAILY 08/29/16 Simvastatin 40 mg PO HS 08/29/16 Ezetimibe [Zetia -] 10 mg PO DAILY #30 tablet 08/31/16 Insulin (Levemir) [Levemir Vial] 12 units SQ HS #7 ml 08/31/16 Metoprolol Succinate [Toprol XL -] 25 mg PO DAILY #30 bottle 08/31/16 Amlodipine Besylate 10 mg PO DAILY 09/18/17 Cardiac Disorders: Yes (STENT X1) COPD: No Diabetes: Yes Disorders: Yes HTN: Yes Hypercholesterolemia: Yes - Surgical History Abdominal Surgery: Yes (HERNIA) Cardiac Surgery: Yes (card stent x 2) - Suicide/Smoking/Psychosocial Hx Smoking Status: No Smoking History: Never smoked Have you smoked in the past 12 months: No Number of Cigarettes Smoked Daily: 0 If you are a former smoker, when did you quit?: 47 YEARS AGO Hx Alcohol Use: No Drug/Substance Use Hx: No Substance Use Type: None *Physical Exam - Vital Signs Last Vital Signs Temp Pulse Resp BP Pulse Ox 98 F 56 L 16 171/85 99 09/18/17 12:11 09/18/17 15:02 09/18/17 15:02 09/18/17 15:02 09/18/17 15:02 ED Treatment Course - LABORATORY CBC & Chemistry Diagram: 09/18/17 13:10 09/18/17 13:00 - ADDITIONAL ORDERS Additional order review: Laboratory Results 09/18/17 09/18/17 09/18/17 13:00 13:00 13:00 PT with INR 12.0 INR 1.07 Sodium 141 Potassium 5.1 Chloride 110 H Carbon Dioxide 23 Anion Gap 8 BUN 33 H D Creatinine 2.6 H D Creat Clearance w eGFR 23.47 Random Glucose 167 H D Calcium 8.5 Total Bilirubin 0.6 D AST 17 ALT 16 D Alkaline Phosphatase 56 Creatine Kinase 167 Troponin I 0.04 Total Protein 7.4 D Albumin 3.8 D 09/18/17 13:10 RBC 4.72 D MCV 82.3 MCHC 33.5 RDW 15.1 D MPV 7.3 L Neutrophils % 78.5 D Lymphocytes % 11.6 D Monocytes % 7.0 Eosinophils % 2.8 Basophils % 0.1 - RADIOLOGY Radiology Studies Ordered: Category Date Time Status CHEST X-RAY PORTABLE* [RAD] Stat Radiology 09/18/17 12:26 Completed - Medications Given in the ED: ED Medications Discontinued Medications Generic Name Dose Route Start Last Admin Trade Name Freq PRN Reason Stop Dose Admin Aspirin 81 mg 09/18/17 14:08 09/18/17 14:16 Asa - PO 09/18/17 14:09 81 mg ONCE ONE Administration Medical Decision Making - Medical Decision Making 09/18/17 15:40 Troponin is 0.04. There is some renal dysfunction with a creatinine of 2.6. Elevated sugar 167. EKG: There are significant ST-T wave changes in the lateral and inferior leads, but these appear to be old. There are similar changes in 3 prior cardiograms that were reviewed. There do not appear to be any new changes. Chest x-ray clear Patient current, hospitalist, and Dr. Garcia, cardiology, were contacted for admission. The case was fully discussed with both and they will follow the patient during observation admission. Patient remains clinically and hemodynamically stable under observation. *DC/Admit/Observation/Transfer Diagnosis at time of Disposition: Acute coronary syndrome - Discharge Dispostion Admit: Yes Decision to Admit order Date/Time: Decision to Admit Order Category Date Time Status Decision to Admit to Hospital Routine Admission 09/18/17 14:47 Active - Referrals - Patient Instructions - Post Discharge Activity
[2017-09-18 13:43] LABS: HEMATOCRIT 38.8 % (35.4-49); MEAN PLT VOLUME 7.3 fl (7.5-11.1)
[2017-09-18 13:54] LABS: ALBUMIN 3.8 g/dl (3.5-5.0); ALK PHOS 56 U/L (32-92); ANION GAP 8 (8-16); BILIRUBIN,TOTAL 0.6 mg/dl (0.2-1.0); BLOOD UREA NITROGEN 33 mg/dl (7-18); CALCIUM 8.5 mg/dl (8.4-10.2); CHLORIDE 110 mmol/L (98-107); CO2 23 mmol/L (22-28); CREATININE 2.6 mg/dl (0.6-1.3); GLUCOSE,RANDOM 167 mg/dl (74-106); POTASSIUM 5.1 mmol/L (3.5-5.1); SGOT/AST 17 U/L (10-42); SGPT/ALT 16 U/L (10-40); SODIUM 141 mmol/L (136-145); TOT PROT 7.4 g/dl (6.4-8.3)
[2017-09-18 13:55] LABS: BASO % 0.1 % (0-2.0); EOS % 2.8 % (0-4.5); LYMPH % 11.6 % (8-40); MCH 27.6 pg (25.7-33.7); MCHC 33.5 g/dl (32.0-35.9); MEAN CELL VOLUME 82.3 fl (80-96); NEUT % 78.5 % (42.8-82.8); PLATELET COUNT 188 K/MM3 (134-434); RBC 4.72 M/mm3 (4.00-5.60); RDW 15.1 % (11.9-15.9); WHITE BLOOD COUNT 7.2 K/mm3 (4.0-10.8)
[2017-09-18] MEDS ORDERED: ASPIRIN 81 MG CHEWABLE TABLETS PO ONE (14:08)
[2017-09-18] MEDS ORDERED: ASPIRIN 81 MG CHEWABLE TABLETS ONE (14:13)
[2017-09-18 14:23] LABS: INR 1.07 (0.82-1.09)
--- NOTE | 2017-09-18 15:03 | CON.CARD ---
Cardiology Consult (text) - Consultation Consultation Note: CC: cp 87 m hx , htn, niddm, hld, ckd, cad (no SD) s/p pci x2 (last was cate to [facility] in 10/2003), ckd (followed by Dr. valadez, recent cr 2.5), mild memory deficits p/ w cp. currently cp free. History limited due to memory deficits. Family recalls he has been having intermittent left shoulder pain associated with dizziness, (sought ER eval 2016) for the past few months. Patient doesn't recall if similar to this episode of left flank pain. Here with left sided chest pain/flank pain, also associated with dizziness. In area of prior shingles rash, no evidence of recent shingles eruption. Patient woke up with pain this morning. Patient ignored symptoms but when symptoms ( including dizziness) persisted throughout the morning including while he was driving and so he sought ER eval. Patient also endorses decreased exercise tolerance/richardson. Now needing to rest more/having more richardson when walking up short hill from his car to his home. patient states he took all of his medications already today. s/p asa 81 mg x 1 in ER. He denies palpitations, orthopnea, PND, or LE edema. denies f/c/s, n/v/d, recent injury, congestion. rashes, h/a, visual disturbances. + chronic dry cough. cards: Dr. ricardo pmhx/pshx: Abdominal hernia social hx: former smoker fam hx: no cardiac hx ros: per hpi Ambulatory Orders Aspirin [Aspirin EC] 81 mg PO DAILY 08/29/16 Cholecalciferol (Vitamin D3) [Vitamin D3 -] 5,000 unit PO DAILY 08/29/16 Clopidogrel Bisulfate [Clopidogrel] 75 mg PO DAILY 08/29/16 Simvastatin 40 mg PO HS 08/29/16 Ezetimibe [Zetia -] 10 mg PO DAILY #30 tablet 08/31/16 Insulin (Levemir) [Levemir Vial] 12 units SQ HS #7 ml 08/31/16 Metoprolol Succinate [Toprol XL -] 25 mg PO DAILY #30 bottle 08/31/16 Amlodipine Besylate 10 mg PO DAILY 09/18/17 Vital Signs - 24 hr 09/18/17 09/18/17 12:11 13:39 Temperature 98 F Pulse Rate 72 Pulse Rate [ 58 L Right Radial] Respiratory 20 16 Rate Blood Pressure 186/73 Blood Pressure 142/73 [Right Arm] O2 Sat by Pulse 100 Oximetry (%) nad, calm jvd increased, neck supple ctab, nl effort rrr nl s1, s2 2/6 murmur at sternal border + bs soft nt nd, no hsm ext without e/c/c + dp/pt, no carotid bruits no jaundice, diaphoresis aaox3 CBC, BMP 09/18/17 13:10 09/18/17 13:00 Laboratory Tests 05/16/17 09/18/17 09/18/17 12:50 13:00 13:00 Creatinine 2.5 H Total Bilirubin 0.6 D AST 17 ALT 16 D Alkaline Phosphatase 56 Creatine Kinase 167 Troponin I 0.04 Albumin 3.8 D ekg: sr with pvc's. lad. upsloping yony in precordial leads, similar to priors. antlat twi, similar to priors. tele: sr/sb cxr: chronic pulmonary and pleural changes bilaterally, calcified granuloma at the right lung base. similar to prior. echo ([facility]) 08/2016: mild lvh, nl lv/rv, mild mr, mild-mod tr, rvsp 49, mod-sev , mild ar mibi 11/2014: bandar, no ecg changes, mod size inferolateral scar with mod linus- infarct ischemia, no tid, nl lvef. --> low risk, managed medically. 87 m hx , htn, niddm, hld, ckd, cad (no SD) s/p pci x2 (last was cate to [facility] in 10/2003), ckd (followed by Dr. valadez, recent cr 2.5), mild memory deficits p/ w cp. cp - sx's associated with dizziness. - overdue for repeat eval/echo. Echo ordered. If sx's are not 2/2 symptomatic , then will repeat stress testing. Patient with known residual disease. EKG changes similar to priors. Con't johanna. - pain in area of prior shingles rash, monitor for recurrence of shingles. evaluation of non-cardiac etiologies per pmd. : - Repeat echo here as mentioned above. cad/hl - s/p pci x2 (last was cate to [facility] in 10/2003). f/u stress with low risk ischemia , has been managed medically. 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 However, most recently on both ASA and plavix, unclear why on both. Will review office records. con't statin, zetia htn - patient already took outpatient meds today. resume outpatient regimen. monitor for need to adjust. ckd - followed by Dr. Valadez. Cr appears to be at baseline, recent cr levels ~ 2.5.
[2017-09-18 18:18] VITALS: BMI 25.1
--- NOTE | 2017-09-18 19:27 | HP ---
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 Who presents to the ED with chest pain radiating to L- axilla x 2 days. Patient reports the pain began while walking uphill, and resolves at rest. Patient denies palpitations, SOB, diaphoresis, nausea, lightheadedness or dizziness. Patient denies fever, chills, cough, AP, V/D, constipation, dysuria. ER course was notable for: (1) Trop I 0.04 (2) Chest Xray- negative (3) EKG- SR with PVCs, LVH, ST & T wave abnormality (unchanged) Recent Travel: None PAST MEDICAL HISTORY: See HPI PAST SURGICAL HISTORY: PCI stents x2 Stents x3 Social History: Smoking: Never Alcohol: None Drugs: None Family History: Non-contributory Allergies No Known Allergies Allergy (Verified 09/18/17 12:12) HOME MEDICATIONS: Home Medications Medication Instructions Recorded Aspirin [Aspirin EC] 81 mg PO DAILY 08/29/16 Cholecalciferol (Vitamin D3) 5,000 unit PO DAILY 08/29/16 [Vitamin D3 -] Clopidogrel Bisulfate [Clopidogrel] 75 mg PO DAILY 08/29/16 Simvastatin 40 mg PO HS 08/29/16 Ezetimibe [Zetia -] 10 mg PO DAILY #30 tablet 08/31/16 Insulin (Levemir) [Levemir Vial] 12 units SQ HS #7 ml 08/31/16 Metoprolol Succinate [Toprol XL -] 25 mg PO DAILY #30 bottle 08/31/16 Amlodipine Besylate 10 mg PO DAILY 09/18/17 REVIEW OF SYSTEMS CONSTITUTIONAL: Absent: fever, chills, diaphoresis, generalized weakness, malaise, loss of appetite, weight change HEENT: Absent: rhinorrhea, nasal congestion, throat pain, throat swelling, difficulty swallowing, mouth swelling, ear pain, eye pain, visual changes CARDIOVASCULAR: chest pain, Absent: syncope, palpitations, irregular heart rate, lightheadedness, peripheral edema RESPIRATORY: Absent: cough, shortness of breath, dyspnea with exertion, orthopnea, wheezing, stridor, hemoptysis GASTROINTESTINAL: Absent: abdominal pain, abdominal distension, nausea, vomiting, diarrhea, constipation, melena, hematochezia GENITOURINARY: Absent: dysuria, frequency, urgency, hesitancy, hematuria, flank pain, genital pain MUSCULOSKELETAL: left axilla pain Absent: myalgia, arthralgia, joint swelling, back pain, neck pain SKIN: Absent: rash, itching, pallor HEMATOLOGIC/IMMUNOLOGIC: Absent: easy bleeding, easy bruising, lymphadenopathy, frequent infections ENDOCRINE: Absent: unexplained weight gain, unexplained weight loss, heat intolerance, cold intolerance NEUROLOGIC: Absent: headache, focal weakness or paresthesias, dizziness, unsteady gait, seizure, mental status changes, bladder or bowel incontinence PSYCHIATRIC: Absent: anxiety, depression, suicidal or homicidal ideation, hallucinations. PHYSICAL EXAMINATION Vital Signs - 24 hr 09/18/17 09/18/17 09/18/17 12:11 13:39 15:02 Temperature 98 F Pulse Rate 72 Pulse Rate [ 58 L 56 L Right Radial] Respiratory 20 16 16 Rate Blood Pressure 186/73 Blood Pressure 142/73 171/85 [Right Arm] O2 Sat by Pulse 100 99 Oximetry (%) 09/18/17 09/18/17 16:27 16:30 Temperature 98.8 F Pulse Rate 74 Pulse Rate [ 58 L Right Radial] Respiratory 16 16 Rate Blood Pressure 145/64 Blood Pressure 178/65 [Right Arm] O2 Sat by Pulse 100 Oximetry (%) GENERAL: Awake, alert, and fully oriented, in no acute distress. HEAD: Normal with no signs of trauma. EYES: Pupils equal, round and reactive to light, extraocular movements intact, sclera anicteric, conjunctiva clear. No lid lag. EARS, NOSE, THROAT: Ears normal, nares patent, oropharynx clear without exudates. Moist mucous membranes. NECK: Normal range of motion, supple without lymphadenopathy, JVD, or masses. LUNGS: Breath sounds equal, clear to auscultation bilaterally. No wheezes, and no crackles. No accessory muscle use. HEART: Regular rate and rhythm, normal S1 and S2, Systolic murmur 2/6, No rub or gallop. CP not reproducible ABDOMEN: Soft, nontender, not distended, normoactive bowel sounds, no guarding, no rebound, no masses. No hepatomegaly or splenomegaly. MUSCULOSKELETAL: Normal range of motion at all joints. No bony deformities or tenderness. No CVA tenderness. UPPER EXTREMITIES: 2+ pulses, warm, well-perfused. No cyanosis. No clubbing. No peripheral edema. LOWER EXTREMITIES: 2+ pulses, warm, well-perfused. No calf tenderness. No peripheral edema. NEUROLOGICAL: Cranial nerves II-XII intact. Normal speech. Gait not observed. PSYCHIATRIC: Cooperative. Good eye contact. Appropriate mood and affect. SKIN: Warm, dry, normal turgor, no rashes or lesions noted, normal capillary refill. Laboratory Results - last 24 hr 09/18/17 09/18/17 09/18/17 13:00 13:00 13:00 WBC RBC Hgb Hct MCV MCH MCHC RDW Plt Count MPV Neutrophils % Lymphocytes % Monocytes % Eosinophils % Basophils % PT with INR 12.0 INR 1.07 Sodium 141 Potassium 5.1 Chloride 110 H Carbon Dioxide 23 Anion Gap 8 BUN 33 H D Creatinine 2.6 H D Creat Clearance w eGFR 23.47 Random Glucose 167 H D Calcium 8.5 Total Bilirubin 0.6 D AST 17 ALT 16 D Alkaline Phosphatase 56 Creatine Kinase 167 Creatine Kinase Index 3.5 CK-MB (CK-2) 5.9 H Troponin I 0.04 Total Protein 7.4 D Albumin 3.8 D 09/18/17 13:10 WBC 7.2 D RBC 4.72 D Hgb 13.0 D Hct 38.8 D MCV 82.3 MCH 27.6 MCHC 33.5 RDW 15.1 D Plt Count 188 MPV 7.3 L Neutrophils % 78.5 D Lymphocytes % 11.6 D Monocytes % 7.0 Eosinophils % 2.8 Basophils % 0.1 PT with INR INR Sodium Potassium Chloride Carbon Dioxide Anion Gap BUN Creatinine Creat Clearance w eGFR Random Glucose Calcium Total Bilirubin AST ALT Alkaline Phosphatase Creatine Kinase Creatine Kinase Index CK-MB (CK-2) Troponin I Total Protein Albumin ASSESSMENT/PLAN: This is a 87 y/o man with a PMH: , CAD (no [place], a/p PCI x2), HTN, HLD, NIDDM, CKD, GI Bleed, 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 Placed on Tele Observation for Chest Pain r/o ACS, Angina Problem List - Problem (1) Chest pain Assessment/Plan: - Continue cardiac monitoring - Serial Enzymes - Given Asa in ED, will hold secondary to GI Bleed/Ulcer hx (on Asa) - Cardiology following - Stress Test in am - Echo 08/30/16- cLVH, LV nl, RV nl, mild MR, mild to mod TR, mod-severe , mild AR, trace PVR - Lipid Profile, HgbA1C in am - Continue Plavix Code(s): R07.9 - CHEST PAIN, UNSPECIFIED (2) Acute coronary syndrome Assessment/Plan: - See above Code(s): I24.9 - ACUTE ISCHEMIC HEART DISEASE, UNSPECIFIED (3) Hypertensive cardiomyopathy Assessment/Plan: - Monitor BP - Continue home meds - Monitor renal function Code(s): I11.9 - HYPERTENSIVE HEART DISEASE WITHOUT HEART FAILURE; I42.9 - CARDIOMYOPATHY, UNSPECIFIED Qualifiers: (4) Chronic kidney disease (CKD) Assessment/Plan: - Cr 2.6 at baseline - Monitor renal function - Avoid nephrotoxic drugs - FU with Nephrology outpatient Code(s): N18.9 - CHRONIC KIDNEY DISEASE, UNSPECIFIED (5) Hyperlipemia Assessment/Plan: - Lipid panel in am - Continue statin - Monitor LFTs Code(s): E78.5 - HYPERLIPIDEMIA, UNSPECIFIED Qualifiers: (6) Type 2 diabetes mellitus Assessment/Plan: - Stable - BGMs - Continue Levemir - HgBA1c in am Code(s): E11.9 - TYPE 2 DIABETES MELLITUS WITHOUT COMPLICATIONS (7) DVT prophylaxis Assessment/Plan: - OOB - SCDs - Continue Plavix Code(s): NST4909 - Visit type - Emergency Visit Emergency Visit: Yes ED Registration Date: 09/18/17 Care time: The patient presented to the Emergency Department on the above date and was hospitalized for further evaluation of their emergent condition. - New Patient This patient is new to me today: Yes Date on this admission: 09/18/17 - Critical Care Critical Care patient: No Hospitalist Screening - Colonoscopy Questionnaire Colonoscopy Questionnaire: Colonoscopy Questionnaire - Patient: 50 - 75 years old and never had a screening colonoscopy: Unknown History of colon or rectal polyps, or CA: Yes History of IBD, Crohn's disease or UC: Unknown History of abdominal radiation therapy as a child: Unknown - Relative: 1 with colon or rectal CA, or polyps at age 60 or younger: Unknown Colon or rectal CA diagnosed at age 45 or younger: Unknown Multiple relatives with colon or rectal CA: Unknown - Outcome: Screening Result: Positive Screen
[2017-09-18] MEDS: ATORVASTATIN CA 20 MG TABLET (FP) PO SCH (21:16)
[2017-09-18] MEDS: INSULIN (LEVEMIR) 100 UNITS/ML UNITS SQ SCH (21:16)
--- NOTE | 2017-09-18 22:04 | EKG ---
Test Reason : Blood Pressure : / mmHG Vent. Rate : 066 BPM Atrial Rate : 066 BPM P-R Int : 190 ms QRS Dur : 088 ms QT Int : 390 ms P-R-T Axes : 060 -29 100 degrees QTc Int : 408 ms SINUS RHYTHM WITH OCCASIONAL PREMATURE VENTRICULAR COMPLEXES POSSIBLE LEFT ATRIAL ENLARGEMENT LEFT VENTRICULAR HYPERTROPHY ST ELEVATION, CONSIDER EARLY REPOLARIZATION, PERICARDITIS, OR INJURY T WAVE ABNORMALITY, CONSIDER LATERAL ISCHEMIA ABNORMAL ECG WHEN COMPARED WITH ECG OF 16-MAY-2017 15:12, PREMATURE VENTRICULAR COMPLEXES ARE NOW PRESENT Confirmed by REBECA FELDER MD ([id number]) on 09/18/2017 10:03:32 PM Referred By: JOSH GONSALEZ Confirmed By:REBECA FELDER MD
[2017-09-19 08:28] LABS: ALBUMIN 3.1 g/dl (3.5-5.0); ALK PHOS 43 U/L (32-92); ANION GAP 3 (8-16); BILIRUBIN,TOTAL 0.9 mg/dl (0.2-1.0); BLOOD UREA NITROGEN 32 mg/dl (7-18); CALCIUM 7.9 mg/dl (8.4-10.2); CHLORIDE 113 mmol/L (98-107); CO2 23 mmol/L (22-28); CREATININE 2.3 mg/dl (0.6-1.3); GLUCOSE,RANDOM 117 mg/dl (74-106); MAGNESIUM 1.9 mg/dL (1.8-2.4); PHOSPHOROUS 3.3 mg/dl (2.5-4.6); POTASSIUM 4.8 mmol/L (3.5-5.1); SGOT/AST 15 U/L (10-42); SGPT/ALT 13 U/L (10-40); SODIUM 139 mmol/L (136-145)
--- NOTE | 2017-09-19 08:38 | PN ---
Physical Exam: SUBJECTIVE: Patient seen and examined, patient is ambulatory at bedside, denies any chest pain or shortness of breath OBJECTIVE: Patient is a 87 y/o man with a past medical history of severe aortic sclerosis, CAD (no [place], s/p PCI x2), HTN, NIDDM, HLD, CKD, GI Bleed, Gastric Ulcers. Patient was admitted from the emergency department for chest pain r/o acs. Vital Signs Period Temp Pulse Resp BP Sys/Salmeron Pulse Ox Last 24 Hr 98 F-98.8 F 56-74 16-20 128-186/54-85 93-100 GENERAL: The patient is awake, alert, and fully oriented, in no acute distress. HEAD: Normal with no signs of trauma. EYES: PERRL, extraocular movements intact, sclera anicteric, conjunctiva clear. No ptosis. ENT: Ears normal, nares patent, oropharynx clear without exudates, moist mucous membranes. NECK: Trachea midline, full range of motion, supple. LUNGS: Breath sounds equal, clear to auscultation bilaterally, no wheezes, no crackles, no accessory muscle use. HEART: Regular rate and rhythm, S1, S2, 4/6 systolic murmur, no rub or gallop. ABDOMEN: Soft, nontender, nondistended, normoactive bowel sounds, no guarding, no rebound, no hepatosplenomegaly, no masses. EXTREMITIES: 2+ pulses, warm, well-perfused, no edema. NEUROLOGICAL: Cranial nerves II through XII grossly intact. Normal speech, gait not observed. PSYCH: Normal mood, normal affect. SKIN: Warm, dry, normal turgor, no rashes or lesions noted Laboratory Results - last 24 hr 09/18/17 09/18/17 09/18/17 13:00 13:00 13:00 WBC RBC Hgb Hct MCV MCH MCHC RDW Plt Count MPV Neutrophils % Lymphocytes % Monocytes % Eosinophils % Basophils % PT with INR 12.0 INR 1.07 Sodium 141 Potassium 5.1 Chloride 110 H Carbon Dioxide 23 Anion Gap 8 BUN 33 H D Creatinine 2.6 H D Creat Clearance w eGFR 23.47 POC Glucometer Random Glucose 167 H D Calcium 8.5 Total Bilirubin 0.6 D AST 17 ALT 16 D Alkaline Phosphatase 56 Creatine Kinase 167 Creatine Kinase Index 3.5 CK-MB (CK-2) 5.9 H Troponin I 0.04 Total Protein 7.4 D Albumin 3.8 D 09/18/17 09/18/17 09/18/17 13:10 20:00 20:00 WBC 7.2 D RBC 4.72 D Hgb 13.0 D Hct 38.8 D MCV 82.3 MCH 27.6 MCHC 33.5 RDW 15.1 D Plt Count 188 MPV 7.3 L Neutrophils % 78.5 D Lymphocytes % 11.6 D Monocytes % 7.0 Eosinophils % 2.8 Basophils % 0.1 PT with INR INR Sodium Potassium Chloride Carbon Dioxide Anion Gap BUN Creatinine Creat Clearance w eGFR POC Glucometer Random Glucose Calcium Total Bilirubin AST ALT Alkaline Phosphatase Creatine Kinase 102 Creatine Kinase Index CK-MB (CK-2) Troponin I 0.04 Total Protein Albumin 09/18/17 09/19/17 09/19/17 21:17 06:24 07:03 WBC RBC Hgb Hct MCV MCH MCHC RDW Plt Count MPV Neutrophils % Lymphocytes % Monocytes % Eosinophils % Basophils % PT with INR INR Sodium Potassium Chloride Carbon Dioxide Anion Gap BUN Creatinine Creat Clearance w eGFR POC Glucometer 148 51 73 Random Glucose Calcium Total Bilirubin AST ALT Alkaline Phosphatase Creatine Kinase Creatine Kinase Index CK-MB (CK-2) Troponin I Total Protein Albumin Active Medications Generic Name Dose Route Start Last Admin Trade Name Freq PRN Reason Stop Dose Admin Amlodipine Besylate 10 mg 09/19/17 10:00 Norvasc - PO DAILY [facility] Atorvastatin Calcium 20 mg 09/18/17 22:00 09/18/17 21:16 Lipitor - PO 20 mg HS JUMA Administration Clopidogrel Bisulfate 75 mg 09/19/17 10:00 Plavix - PO DAILY [facility] Ezetimibe 10 mg 09/19/17 10:00 Zetia - PO DAILY [facility] Insulin Detemir 12 units 09/18/17 22:00 09/18/17 21:16 Levemir Vial SQ 12 units HS [facility] Administration Metoprolol Succinate 25 mg 09/19/17 10:00 Toprol Xl - PO DAILY [facility] IMAGING ekg SR LVH, twave abn, unchanged from prior Chest xray no acute pathology ASSESSMENT/PLAN: 1) cardiovascular chest pain r/o acs CAD - troponin x 3 wnl, continous telemetry monitoring - pending echo to access for severity of prior to stress - continue plavix, toprol - Dr Yuan, patient's private postal supervisor consulted and followed hyperlipidemia - pending lipid profile, continue zetia hypertensive cardiomyopathy - continue norvasc and toprol - b/p at goal 2) nephrology CKD - repeat creatine 2.3 close to baseline - strict monitoring, outpatient followup with nephrology (Dr Archer) 3) endo DM - continue fingersticks achs with home dose levermir - pending hgb a1c f/e/n - low sodium/cholesterol/diabetic diet - replete electrolytes prn ppx - oob - pepcid dispo: pt require obsv telemetry admission Visit type - Emergency Visit Emergency Visit: Yes ED Registration Date: 09/18/17 Care time: The patient presented to the Emergency Department on the above date and was hospitalized for further evaluation of their emergent condition. - New Patient This patient is new to me today: Yes Date on this admission: 09/19/17 - Critical Care Critical Care patient: No - Discharge Referral Referred to [facility] No
[2017-09-19 09:08] LABS: BASO % 0.5 % (0-2.0); EOS % 3.1 % (0-4.5); HEMATOCRIT 32.9 % (35.4-49); HEMOGLOBIN 11.3 GM/dl (11.7-16.9); LYMPH % 19.1 % (8-40); MCH 28.2 pg (25.7-33.7); MCHC 34.3 g/dl (32.0-35.9); MEAN CELL VOLUME 82.2 fl (80-96); MEAN PLT VOLUME 7.3 fl (7.5-11.1); NEUT % 65.3 % (42.8-82.8); PLATELET COUNT 155 K/MM3 (134-434); RDW 14.7 % (11.9-15.9)
[2017-09-19 09:21] LABS: WHITE BLOOD COUNT 5.6 K/mm3 (4.0-10.8)
[2017-09-19] MEDS: CLOPIDOGREL BISULFATE 75 MG TABLET (FP) PO SCH (09:41)
[2017-09-19] MEDS: metoPROLOL SUCCINATE 25 MG TAB.SR.24H (FP) PO SCH (09:41)
[2017-09-19] MEDS: EZETIMIBE 10 MG TABLET (FP) PO SCH (09:42)
[2017-09-19] MEDS: amLODIPine BESYLATE 10 MG TABLET (FP) PO SCH (09:42)
[2017-09-19] MEDS: FAMOTIDINE 20 MG TABLET PO SCH ×2 (13:24→21:33)
[2017-09-19 15:36] LABS: CHOLESTEROL 120 mg/dl; HDL CHOLESTEROL 45 mg/dl (29-89); TRIGLYCERIDES 85 mg/dl (35-160)
[2017-09-19] MEDS: ATORVASTATIN CA 20 MG TABLET (FP) PO SCH (21:33)
[2017-09-19] MEDS: INSULIN (LEVEMIR) 100 UNITS/ML UNITS SQ SCH (21:42)
[2017-09-20 06:33] VITALS: BP 180/71; PULSE 56; TEMP 98.5
[2017-09-20] MEDS: CLOPIDOGREL BISULFATE 75 MG TABLET (FP) PO SCH (09:35)
[2017-09-20] MEDS: amLODIPine BESYLATE 10 MG TABLET (FP) PO SCH (09:35)
[2017-09-20] MEDS: EZETIMIBE 10 MG TABLET (FP) PO SCH (09:35)
[2017-09-20] MEDS: FAMOTIDINE 20 MG TABLET PO SCH (09:35)
[2017-09-20] MEDS: metoPROLOL SUCCINATE 25 MG TAB.SR.24H (FP) PO SCH (09:35)
--- NOTE | 2017-09-20 11:32 | PN ---
Progress Note (short form) - Note Progress Note: s: no cp sob palps dizzy o: Vital Signs Period Temp Pulse Resp BP Sys/Salmeron Pulse Ox Last 24 Hr 98.0 F-98.5 F 56-62 18-20 148-180/64-71 96-100 nad, no jvd ctab, nl effort rrr nl s1, s2 2/6 murmur at sternal border ext without e/c/c + dp/pt, no carotid bruits no jaundice, diaphoresis aaox3 Current Medications Generic Name Dose Route Start Last Admin Trade Name Dongq PRN Reason Stop Dose Admin Amlodipine Besylate 10 mg 09/19/17 10:00 09/20/17 09:35 Norvasc - PO 10 mg DAILY JUMA Administration Atorvastatin Calcium 20 mg 09/18/17 22:00 09/19/17 21:33 Lipitor - PO 20 mg HS JUMA Administration Clopidogrel Bisulfate 75 mg 09/19/17 10:00 09/20/17 09:35 Plavix - PO 75 mg DAILY JUMA Administration Ezetimibe 10 mg 09/19/17 10:00 09/20/17 09:35 Zetia - PO 10 mg DAILY JUMA Administration Famotidine 20 mg 09/19/17 12:15 09/20/17 09:35 Pepcid - PO 20 mg BID JUMA Administration Insulin Detemir 12 units 09/18/17 22:00 09/19/17 21:42 Levemir Vial SQ 12 units HS JUMA Administration Metoprolol Succinate 25 mg 09/19/17 10:00 09/20/17 09:35 Toprol Xl - PO 25 mg DAILY JUMA Administration CBC, BMP 09/19/17 07:39 09/19/17 07:39 ekg: sr with pvc's. lad. upsloping yony in precordial leads, similar to priors. antlat twi, similar to priors. tele: sr cxr: chronic pulmonary and pleural changes bilaterally, calcified granuloma at the right lung base. similar to prior. echo ([facility]) 08/2016: mild lvh, nl lv/rv, mild mr, mild-mod tr, rvsp 49, mod-sev , mild ar echo 09/2017: mild lvh, nl lv/rv, mild mr, mild tr, mild ar, sev as mibi 11/2014: bandar, no ecg changes, mod size inferolateral scar with mod linus- infarct ischemia, no tid, nl lvef. --> low risk, managed medically. a/p: 87 m hx , htn, niddm, hld, ckd, cad (no [place]) s/p pci x2 (last was cate to [facility] in 10/2003), ckd (followed by Dr. valadez, recent cr 2.5), mild memory deficits p/w cp. cp - atypical, resolved, johanna neg, no signs acs : - Repeat echo here similar to last year with similar gradients, mod-sev as. Has not been having obvious sxs from as, no chf. Discussed with pt about possible tavr. He says he is not having limiting sxs and is not interested in valve replacement at this time even if it were to prolong his life. Continued outpt f/u. cad/hld - s/p pci x2 (last was cate to [facility] in 10/2003). f/u stress with low risk ischemia , has been managed medically. 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 Cont statin. htn -cont home meds ckd - followed by Dr. Valadez. Cr appears to be at baseline, recent cr levels ~ 2.5. cardiac bridges ok for dc, should f/u with me 1 mos
--- NOTE | 2017-09-20 12:20 | DS ---
Physical Exam: SUBJECTIVE: Patient seen and examined, reports feeling well, ambulatory at bedside, denies any chest pain or shortness of breath, patient is requesting discharge home. 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 Who presents to the ED with chest pain radiating to L- axilla x 2 days. Patient reports the pain began while walking uphill, and resolves at rest. Patient denies palpitations, SOB, diaphoresis, nausea, lightheadedness or dizziness. Patient denies fever, chills, cough, AP, V /D, constipation, dysuria. ER course was notable for: (1) Trop I 0.04 (2) Chest Xray- negative (3) EKG- SR with PVCs, LVH, ST & T wave abnormality (unchanged) Vital Signs Period Temp Pulse Resp BP Sys/Salmeron Pulse Ox Last 24 Hr 98.0 F-98.5 F 56-62 18-20 148-180/64-71 96-100 PHYSICAL EXAM GENERAL: The patient is awake, alert, and fully oriented, in no acute distress. HEAD: Normal with no signs of trauma. EYES: PERRL, extraocular movements intact, sclera anicteric, conjunctiva clear. ENT: Ears normal, nares patent, oropharynx clear without exudates, moist mucous membranes. NECK: Trachea midline, full range of motion, supple. LUNGS: Breath sounds equal, clear to auscultation bilaterally, no wheezes, no crackles, no accessory muscle use. HEART: Regular rate and rhythm, S1, S2, 3/6 systolic murmur, no rub or gallop. ABDOMEN: Soft, nontender, nondistended, normoactive bowel sounds, no guarding, no rebound, no hepatosplenomegaly, no masses. EXTREMITIES: 2+ pulses, warm, well-perfused, no edema. NEUROLOGICAL: Cranial nerves II through XII grossly intact. Normal speech, gait not observed. PSYCH: Normal mood, normal affect. SKIN: Warm, dry, normal turgor, no rashes or lesions noted. LABS Laboratory Results - last 24 hr 09/19/17 09/19/17 09/19/17 08:00 08:00 16:28 POC Glucometer 101 Hemoglobin A1c % 7.5 H D Triglycerides 85 D Cholesterol 120 Total LDL Cholesterol 58 HDL Cholesterol 45 D 09/19/17 09/20/17 21:36 06:36 POC Glucometer 194 71 Hemoglobin A1c % Triglycerides Cholesterol Total LDL Cholesterol HDL Cholesterol IMAGING ekg SR LVH, twave abn, unchanged from prior Chest xray no acute pathology HOSPITAL COURSE: 1) cardiovascular chest pain r/o acs CAD - troponin x 3 wnl, continous telemetry monitoring - echo sever aortic stenosis, discussed with patient's private steam conditioner filling, Dr Nance, severity is unchanged recommends close followup - continue plavix, toprol - Dr Yuan, patient's private steam conditioner filling consulted and followed hyperlipidemia - pending lipid profile, continue zetia hypertensive cardiomyopathy - continue norvasc and toprol - b/p at goal 2) nephrology CKD - repeat creatine 2.3 close to baseline - strict monitoring, outpatient followup with nephrology (Dr Archer) 3) endo DM - continued fingersticks achs with home dose levermir Date of Admission:09/18/17 Date of Discharge: 09/20/17 Minutes to complete discharge: 45 Discharge Summary Reason For Visit: CHEST PAIN Current Active Problems Acute coronary syndrome (Acute) Chest pain (Acute) DVT prophylaxis (Acute) Condition: Improved - Instructions Diet, Activity, Other Instructions: continue all medications as prescribed please schedule follow up appointment with Dr Masterson within 1 month-->if you develop increased shortness of breath or swelling to your legs please follow up with Dr Masterson sooner if any new or persistent symptoms develop please return to the emergency department Referrals: Joseph Nance MD [Staff Physician] - 1 Month (please follow up with the steam conditioner filling within 1 month ) Disposition: HOME - Home Medications Comprehensive Discharge Medication List: Ambulatory Orders Aspirin [Aspirin EC] 81 mg PO DAILY 08/29/16 Cholecalciferol (Vitamin D3) [Vitamin D3 -] 5,000 unit PO DAILY 08/29/16 Clopidogrel Bisulfate [Clopidogrel] 75 mg PO DAILY 08/29/16 Simvastatin 40 mg PO HS 08/29/16 Ezetimibe [Zetia -] 10 mg PO DAILY #30 tablet 08/31/16 Insulin (Levemir) [Levemir Vial] 12 units SQ HS #7 ml 08/31/16 Metoprolol Succinate [Toprol XL -] 25 mg PO DAILY #30 bottle 08/31/16 Amlodipine Besylate 10 mg PO DAILY 09/18/17 This patient is new to me today: No Emergency Visit: Yes ED Registration Date: 09/18/17 Care time: The patient presented to the Emergency Department on the above date and was hospitalized for further evaluation of their emergent condition. Critical Care patient: No - Discharge Referral Referred to [facility] No
== END 2017-09-20 12:33 | disposition home or self-care (01) ==
LOC: FER 12:10 → FM/S 16:30
PROVIDERS: ADMIT Hospitalist; ATTEND Nurse Practitioner Family
PROC: 3E013VG Introduction of Insulin into Subcutaneous Tissue, Percutaneous Approach (ICD-10-PCS; principal; 2017-09-18)
DX: I24.9 Acute ischemic heart disease, unspecified (principal); R07.9 Chest pain, unspecified; I25.10 Atherosclerotic heart disease of native coronary artery without angina pectoris; E11.22 Type 2 diabetes mellitus with diabetic chronic kidney disease; I12.9 Hypertensive chronic kidney disease with stage 1 through stage 4 chronic kidney disease, or unspecified chronic kidney disease; N18.9 Chronic kidney disease, unspecified; E78.5 Hyperlipidemia, unspecified; Z79.4 Long term (current) use of insulin; Z95.5 Presence of coronary angioplasty implant and graft; Z79.82 Long term (current) use of aspirin; I11.9 Hypertensive heart disease without heart failure
CPT/HCPCS: 36415; 71045-TC-FY; 80053; 80061; 82550; 82553; 82962; 83036; 83721; 83735; 84100; 84484; 85025; 85610; 93005; 93306-TC; 99284-25; G0378

== ENCOUNTER 2018-03-22 09:21 | Inpatient (IN) | payer BC, OTHER ==
[2018-03-22 09:36] VITALS: BMI 25.0
[2018-03-22 09:51] LABS: BASO % 1.5 % (0-2.0); EOS % 2.1 % (0-4.5); HEMATOCRIT 37.3 % (35.4-49); HEMOGLOBIN 11.8 GM/dL (11.7-16.9); LYMPH % 21.8 % (8-40); MCH 26.2 pg (25.7-33.7); MCHC 31.5 g/dl (32.0-35.9); MEAN PLT VOLUME 7.5 fl (7.5-11.1); MONO % 10.9 % (3.8-10.2); NEUT % 63.7 % (42.8-82.8); PLATELET COUNT 196 K/MM3 (134-434); RBC 4.49 M/mm3 (4.00-5.60); RDW 17.4 % (11.9-15.9); WHITE BLOOD COUNT 4.4 K/mm3 (4.0-10.0)
--- NOTE | 2018-03-22 09:58 | PDOC ---
History of Present Illness - General Chief Complaint: CVA/TIA Stated Complaint: CVA/TIA Time Seen by Provider: 03/22/18 09:29 History Source: Patient, Family (daughter) Exam Limitations: No Limitations - History of Present Illness Initial Comments: 03/22/18 09:50 Pt is an 87yo m with PMH of , CAD s/p PCI 15-20y ago, HTN, DM, CKD, HLD BIBA because daughter noticed slurred speech this AM at 0830. Last known well was 2200 last night. Per daughter, pt speech is better, but still slightly slurred. Pt says his L leg feels "wobbly". He admits to intermittent posterior neck pain , occasional dizziness, SOB. Denies headache, changes in vision, chest pain, cough, abdominal pain, n/v/d, urinary symptoms. He takes ASA and is not on any other anticoagulant. No CVA in the past. PMD: Alon PMH: see hpi PSH: bilateral hip replacement, stent, hernia repair Meds: see med rec Allergies: nkda Past History - Past Medical History Allergies/Adverse Reactions: Allergies Allergy/AdvReac Type Severity Reaction Status Date / Time No Known Allergies Allergy Verified 03/22/18 09:34 Home Medications: Ambulatory Orders Amlodipine Besylate 10 mg PO DAILY 03/22/18 Aspirin Coated [Ecotrin -] 81 mg PO DAILY 03/22/18 Clopidogrel Bisulfate [Plavix] 75 mg PO DAILY 03/22/18 Glimepiride 2 mg PO DAILY 03/22/18 Hydralazine HCl 10 mg PO BID 03/22/18 Insulin Glargine,Hum.rec.anlog [Lantus] 12 units SQ HS 03/22/18 Metoprolol Succinate 25 mg PO DAILY 03/22/18 Nitroglycerin [Nitrostat] 0.4 mg PO PRN 03/22/18 Simvastatin 40 mg PO DAILY 03/22/18 Cardiac Disorders: Yes (STENT X1) COPD: No Diabetes: Yes Disorders: Yes HTN: Yes Hypercholesterolemia: Yes - Surgical History Abdominal Surgery: Yes (HERNIA) Cardiac Surgery: Yes (card stent x 2) - Suicide/Smoking/Psychosocial Hx Smoking Status: No Smoking History: Former smoker Have you smoked in the past 12 months: No Number of Cigarettes Smoked Daily: 0 If you are a former smoker, when did you quit?: 47 YEARS AGO Information on smoking cessation initiated: No Hx Alcohol Use: No Drug/Substance Use Hx: No Substance Use Type: None Review of Systems - Review of Systems Constitutional: No: Symptoms Reported HEENTM: No: Symptoms Reported Respiratory: Yes: Shortness of Breath. No: Cough Cardiac (ROS): Yes: Lightheadedness. No: Chest Pain, Palpitations, Syncope ABD/GI: No: Symptoms Reported : No: Symptoms Reported Musculoskeletal: Yes: Joint Pain (hips) Integumentary: No: Symptoms Reported Neurological: Yes: Headache, Unsteady Gait. No: Numbness, Tingling, Tremors, Weakness *Physical Exam - Vital Signs Last Vital Signs Temp Pulse Resp BP Pulse Ox 98.6 F 69 18 183/69 H 97 03/22/18 09:31 03/22/18 09:31 03/22/18 09:31 03/22/18 09:31 03/22/18 09:31 - Physical Exam General Appearance: Yes: Nourished, Appropriately Dressed. No: Apparent Distress HEENT: positive: EOMI (no dizziness with EOM), [place], Pharynx Normal, Hearing Grossly Normal. negative: Excessive drooling Neck: positive: Trachea midline, Supple. negative: Carotid bruit, Lymphadenopathy (R), Lymphadenopathy (L) Respiratory/Chest: positive: Lungs Clear, Normal Breath Sounds. negative: Paradoxal Breathing, Crackles, Rales, Rhonchi Cardiovascular: positive: Regular Rhythm, Regular Rate, S1, S2, Systolic Murmur. negative: Edema, JVD, Murmur Vascular Pulses: Carotid (R): 2+, Carotid (L): 2+, Dorsalis-Pedis (R): 2+, Doralis-Pedis (L): 2+ Gastrointestinal/Abdominal: positive: Normal Bowel Sounds, Soft. negative: Rebound, Tenderness, Hernia, Mass Musculoskeletal: positive: Decreased Range of Motion (in lower extremities due to hip replacement) Extremity: positive: Normal Capillary Refill, Pelvis Stable Integumentary: positive: Normal Color, Dry, Warm Neurologic: positive: relationship management lead II-XII NML intact, Fully Oriented, Alert, Normal Mood/ Affect, Normal Response, Motor Strength 5/5, Sensory Deficit (L leg). negative : Facial Droop, Numbness, Finger to Nose (R side), Confused, Disoriented NIH Stroke Scale - Last Known Well Date/Time & Onset Date Last Known Well: 03/21/18 Time Last Known Well: 22:00 - Initial Evaluation Level of consciousness: Alert Ask patient the month and their age: Answers both correctly Ask patient to open & close eyes; make fist and let go: Obeys both correctly Best gaze (horizontal eye movement): Normal Visual field testing: No visual field loss Facial paresis (Show teeth/raise eyebrows/close eyes tight): Normal symmetrical movement Motor Function: Left Arm: Normal Motor Function: Right Arm: Normal (extends arm 90 (or 45) degrees for 10 seconds without drift Motor Function: Left Leg: Normal (extends leg 30 degrees for 5 seconds without drift) Motor Function: Right Leg: Normal (extends leg 30 degrees for 5 seconds without drift) Limb Ataxia: Present in one limb Sensory(Use pinprick test arms,legs,trunk,face/side to side): Mild to moderate decrease in sensation Best language (Describe picture, name items, read sentences): No Aphasia Dysarthria (read several words): Normal articulation Extinction and Inattention: No abnormality - Total Score NIH Stroke Scale Score: 2 Critical Care Time/MDM Note - Medical Decision Making Note: 03/22/18 10:01 Pt is an 87yo m with PMH of , CAD s/p PCI 15-20y ago, HTN, DM, CKD, HLD BIBA because daughter noticed slurred speech this AM at 0830. Last known well was 2200 last night. Vitals: 183/69, HR 69, RR18, 97%, T98.6, BGL 93 per EMS. PE: finger-nose, sensory deficit L leg. DDx: stroke (hemorrhagic v. infarct), vertebral dissection, sensory deficit from hip replacement? -Ordered cbc, cmp, coags, trop, ekg, cxr and CT head. 03/22/18 10:56 CMP hemolyzed. will reorder. CBC wnl. Coag: aptt 23.1 EKG: nsr. NJ 210. QTc 412. left axis deviation. LVH. T wave inversion in I, aVL , V5, V6. EVON? in V2 V3. Same to prior done 09/18/2017 CT head: chronic microvascular disease changes. No significant interval changes or acute pathology 03/22/18 13:04 Laboratory Tests 03/22/18 03/22/18 03/22/18 09:23 10:50 11:27 PTT (Actin FS) 23.1 L Sodium 146 H Potassium 5.4 H Chloride 118 H BUN 31 H Creatinine 2.8 H Troponin I 0.17 H Urine Protein 2+ H Urine Blood 1+ H Urine RBC (Auto) 1 Trop 0.17, Na 146, K 5.6, Cl 118? BUN Cr 2.8 MIRIAM? dehydration? possible hypertensive emergency (bp 183/69, Cr 2.8 and Trop 0.17) however low suspicion. Consulted Dr. Sorensen, recommended giving ASA and high dose statin. Pt did not take ASA this AM, will give 324mg and 80mg atorvastatin. Pt admitted *DC/Admit/Observation/Transfer Diagnosis at time of Disposition: TIA (transient ischemic attack), MIRIAM (acute kidney injury) - Discharge Dispostion Condition at time of disposition: Good Decision to Admit order: Yes - Referrals - Patient Instructions - Post Discharge Activity
[2018-03-22 10:06] LABS: INR 1.01 (0.83-1.09); PROTHROMBIN TIME (PATIENT) 11.9 SEC (9.7-13.0)
--- NOTE | 2018-03-22 10:07 | PDOC ---
Attending Attestation - Resident Resident Name: Isabel Parra - ED Attending Attestation I have performed the following: I have examined & evaluated the patient, The case was reviewed & discussed with the resident, I agree w/resident's findings & plan, Exceptions are as noted - HPI HPI: 03/22/18 12:32 Mr Velazco is an 87 yo M h/o Aortic Stenosis, CAD s/p PCI, HTN, DM, CKD, HLD BIBA due to slurred speech this morning Pt lives alone but daughter sees him every day. Four days ago, she found him on the floor, brief assessment revealed NO injury. She assisted him up. She last saw him last night at approximately 10pm prior to going to bed She went because daughter noticed slurred speech this AM at 0830. Last known well was 2200 last night. Per daughter, pt speech is better, but still slightly slurred. Pt says his L leg feels "wobbly". He admits to intermittent posterior neck pain, occasional dizziness, SOB. Denies headache, changes in vision, chest pain, cough, abdominal pain, n/v/d, urinary symptoms. He takes ASA and is not on any other anticoagulant. No CVA in the past. - Physicial Exam PE: 03/22/18 12:37 GENERAL: The patient is in no acute distress. HEAD: Normal EYES: PERRLA, EOMI ENT: Moist mucous membranes. NECK: Normal range of motion, supple LUNGS: Breath sounds equal, clear to auscultation bilaterally. HEART: Regular rate and rhythm, normal S1 and S2 without murmur, rub or gallop. ABDOMEN: Soft, nontender, normoactive bowel sounds. EXTREMITIES: Normal range of motion, no edema. NEUROLOGICAL: Cranial nerves II through XII grossly intact. Normal speech. Face symmetric. Pt answers questions appropriately. Motor Strength 5/5, decreased sensation L leg, Finger to Nose right hand uncoordinated MUSCULOSKELETAL: Back non-tender to palpation SKIN: Warm, Dry, normal turgor, no rashes or lesions noted. 03/22/18 12:45 - Medical Decision Making 03/22/18 12:46 87 yo M p/w slurred speech Possible TIA Pt examination has completely resolved Will do: Labs, EKG, CT head EKG: SR rate of 70 bpm, Left axis deviation, LVH, no ST elevation or depressions, prominent anterior t waves similar to prior 03/22/18 13:07 Laboratory Tests 09/19/17 03/22/18 03/22/18 07:39 09:23 11:27 WBC 4.4 Hgb 11.8 Hct 37.3 Plt Count 196 D Sodium 146 H Potassium 5.4 H Chloride 118 H Carbon Dioxide 20 L BUN 32 H 31 H Creatinine 2.3 H 2.8 H Random Glucose 80 Troponin I 0.17 H Pt admitted Case reviewed with Dr Sorensen - recommends high dose statin and Asa Pt back to his baseline per daughter Clinical Impression: possible TIA, initial presentation Troponin elevation, initial presentation
[2018-03-22 10:08] LABS: ACTIVATED PTT 23.1 SECONDS (25.2-36.5)
[2018-03-22 11:02] LABS: URINE APPEARANCE CLEAR; URINE BILIRUBIN NEGATIVE (<2.0 mg/dL); URINE COLOR LTYELLOW; URINE GLUCOSE (UA) NEGATIVE (NEGATIVE); URINE KETONE NEGATIVE (NEGATIVE); URINE LEUK ESTERASE NEGATIVE (NEGATIVE); URINE NITRITE NEGATIVE (NEGATIVE); URINE PROTEIN 2+ (NEGATIVE); URINE UROBILINOGEN NEGATIVE mg/dL (0.2-1.0)
[2018-03-22 11:08] LABS: URINE BACTERIA RARE /hpf (NONE SEEN); URINE MUCUS RARE
[2018-03-22 12:02] LABS: ALBUMIN 3.4 g/dl (3.4-5.0); ALK PHOS 65 U/L (45-117); ANION GAP 8 MMOL/L (8-16); BILIRUBIN,TOTAL 0.6 mg/dL (0.2-1); BLOOD UREA NITROGEN 31 mg/dL (7-18); CALCIUM 8.5 mg/dL (8.5-10.1); CHLORIDE 118 mmol/L (98-107); CO2 20 mmol/L (21-32); CREATININE 2.8 mg/dL (0.55-1.3); GLUCOSE,RANDOM 80 mg/dL (74-106); POTASSIUM 5.4 mmol/L (3.5-5.1); SGOT/AST 31 U/L (15-37); SGPT/ALT 32 U/L (13-61); SODIUM 146 mmol/L (136-145); TOT PROT 7.2 g/dl (6.4-8.2)
[2018-03-22] MEDS ORDERED: SODIUM CHLORIDE 1,000 ML IV STA (12:39)
[2018-03-22] MEDS ORDERED: ASPIRIN 325 MG TABLET PO ONE (12:39)
[2018-03-22] MEDS ORDERED: LABETALOL HCL 5 MG/1 ML (100MG/20 ML VIAL) IVPUSH ONE (12:42)
[2018-03-22] MEDS ORDERED: ASPIRIN 81 MG CHEWABLE TABLETS PO ONE (12:43)
[2018-03-22] MEDS ORDERED: ATORVASTATIN CA 80 MG TABLET (FP) PO ONE (12:44)
--- NOTE | 2018-03-22 12:54 | HP ---
Admitting History and Physical - Primary Care Physician PCP: Guy Chi - Admission Chief Complaint: slurred speech History of Present Illness: is a 87 year old male pmh of HTN, HLD, CKD-3, CAD s/p PCI x2, IDDM, severe aortic stenosis BIBA for evaluation of slurred speech. Daughter reports noticing dad to have slurred speech around 8:30 am. He was seen at his baseline at 10pm last night. Around the episode, pt reported feeling lightheaded, denied any chest pain/heaviness, nausea. 911 was called, EMT attempted to stand pt up and he was unsteady per daughter. BP at that time 170s/60s, blood sugar 96. Daughter states slurred speech improved within 30 minutes since onset. Pt has never had similar episodes or a CVA. Of note, pt was found on the floor next to his bed, supine position on his back by daughter 4 days ago. Pt unable to recall falling/passing out. Denies any prodromal symptoms. He reports realizing he was on the floor around 3am but did not inform family as he could not reach to get his phone. He's been ambulating without difficulty since then. He reports moderate LBP especially when he is attempting to sit up. Denies any urinary/fecal incontinence. He does c/o LLE numbness when standing for prolonged time, which is chronic. He c/o increased sob/chest tightness upon exertion >6months especially when going up incline, takes nitroglycerin, unable to state if it gives relief. Last seen by Cardiology 10/06, TAVR was recommended but declined at that time. Pt currently at his baseline. Denies any chest pain, sob, n/v/d, unilateral weakness, dysphagia, diplopia, numbness/tingling, fever/chills, rash, dysuria or abdominal pain. History Source: Patient, Family Member, Medical Record Limitations to Obtaining History: Poor Historian - Past Medical History Cardiovascular: Yes: Aortic Stenosis, CAD, HTN, Hyperlipdemia Gastrointestinal: Yes: GI Bleed, Peptic Ulcer Disease (2/2 ASA) Renal/: Yes: Renal Inusuff, Other (elevated PSA- followed by outpt Urology) Musculoskeletal: Yes: Osteoarthritis Endocrine: Yes: Diabetes Mellitus - Past Surgical History Past Surgical History: Yes: Hernia Repair, Joint Replacement (b/l hip), Stent - Smoking History Smoking history: Former smoker Have you smoked in the past 12 months: No Aproximately how many cigarettes per day: 0 If you are a former smoker, when did you quit?: 47 YEARS AGO - Alcohol/Substance Use Hx Alcohol Use: No History of Substance Use: reports: None - Social History Usual Living Arrangement: Yes: With Child ADL: Family Assistance History of Recent Travel: No Home Medications - Allergies Allergies/Adverse Reactions: Allergies Allergy/AdvReac Type Severity Reaction Status Date / Time No Known Allergies Allergy Verified 03/22/18 09:34 - Home Medications Home Medications: Ambulatory Orders Amlodipine Besylate 10 mg PO DAILY 03/22/18 Clopidogrel Bisulfate [Plavix] 75 mg PO DAILY 03/22/18 Glimepiride 2 mg PO DAILY 03/22/18 Hydralazine HCl 10 mg PO BID 03/22/18 Insulin Glargine,Hum.rec.anlog [Lantus] 12 units SQ HS 03/22/18 Metoprolol Succinate 25 mg PO DAILY 03/22/18 Nitroglycerin [Nitrostat] 0.4 mg PO PRN 03/22/18 Simvastatin 40 mg PO DAILY 03/22/18 Family Disease History - Family Disease History Family Disease History: Other: Father (Alcoholism) Review of Systems Findings/Remarks: as per HPI Physical Examination Vital Signs: Vital Signs Temperature 98.6 F 03/22/18 09:31 Pulse Rate 61 03/22/18 12:39 Respiratory Rate 18 03/22/18 12:39 Blood Pressure 168/53 L 03/22/18 12:39 O2 Sat by Pulse Oximetry (%) 98 03/22/18 12:39 Constitutional: Yes: Well Nourished, No Distress, Calm Cardiovascular: Yes: Regular Rate and Rhythm, Murmur (systolic) Respiratory: Yes: Regular, CTA Bilaterally, Rales (RLL). No: Accessory Muscle Use, Rhonchi, SOB, Tachypnea, Wheezes Gastrointestinal: Yes: WNL, Normal Bowel Sounds, Soft. No: Distention, Tenderness Renal/: Yes: WNL Extremities: Yes: WNL Edema: No Neurological: Yes: WNL, Alert, Oriented. No: Confusion, Facial Droop, Lethargy , Loss of Sensation, Numbness, Tingling, Tremors, Weakness Psychiatric: Yes: WNL, Alert, Oriented Labs: CBC, BMP 03/22/18 09:23 03/22/18 11:27 Imaging - Results Chest X-ray: Report Reviewed (no acute findings) Cat Scan: Pending, Report Reviewed (Head CT- no acute findings Lumbar/Sacral CT - pending) Ultrasound: Pending (carotid/ cardiac echo) EKG: Report Reviewed Problem List - Problems (1) TIA (transient ischemic attack) Assessment/Plan: resolved slurred speech Head CT- no acute findings BP control <150/90 high dose statin/plavix lipid panel wnl speech/PT eval pending carotids w/ mild-mod atherosclerosis cardiac echo ordered neuro consult pending defer MRI to neuro Code(s): G45.9 - TRANSIENT CEREBRAL ISCHEMIC ATTACK, UNSPECIFIED (2) Hypertensive urgency Assessment/Plan: BP 180s/60s in ED improving suspect 2/2 missing am meds give home meds and monitor Code(s): I16.0 - HYPERTENSIVE URGENCY (3) MIRIMA (acute kidney injury) Assessment/Plan: slightly elevated from baseline IVF monitor Code(s): N17.9 - ACUTE KIDNEY FAILURE, UNSPECIFIED (4) Elevated troponin Assessment/Plan: low suspicion for ACS ekg w/out changes suspect 2/2 ckd trend troponin cardiology following Code(s): R74.8 - ABNORMAL LEVELS OF OTHER SERUM ENZYMES (5) Unwitnessed fall Assessment/Plan: pt unable to recall syncope vs mechanical fall? head ct neg still w/ lbp- lumbar ct ordered as above Code(s): R29.6 - REPEATED FALLS (6) Hyperkalemia Assessment/Plan: 2/2 ckd, dehydration NS bolus x 1 repeat bmp ordered monitor Code(s): E87.5 - HYPERKALEMIA (7) Chronic kidney disease (CKD) Assessment/Plan: slightly elevated baseline cr 2.5-2.7 followed by nephrology outpt Code(s): N18.9 - CHRONIC KIDNEY DISEASE, UNSPECIFIED Qualifiers: Chronic kidney disease stage: stage 3 (moderate) Qualified Code(s): N18.3 - Chronic kidney disease, stage 3 (moderate) (8) Aortic stenosis Assessment/Plan: severe, tavr was declined in the past need to reassess if worsening pt could be becoming symptomatic cardiology consulted Code(s): I35.0 - NONRHEUMATIC AORTIC (VALVE) STENOSIS (9) Hyperlipemia Assessment/Plan: controlled high dose statin Code(s): E78.5 - HYPERLIPIDEMIA, UNSPECIFIED Qualifiers: Hyperlipidemia type: pure hypercholesterolemia Qualified Code(s): E78.00 - Pure hypercholesterolemia, unspecified; E78.0 - Pure hypercholesterolemia (10) Type 2 diabetes mellitus Assessment/Plan: controlled BGM insulin sliding scale levemir hs/amaryl diabetic diet Code(s): E11.9 - TYPE 2 DIABETES MELLITUS WITHOUT COMPLICATIONS Qualifiers: Diabetes mellitus half-way insulin use: with half-way use Diabetes mellitus complication status: with kidney complications Diabetes mellitus complication detail: with chronic kidney disease Chronic kidney disease stage : stage 3 (moderate) Qualified Code(s): E11.22 - Type 2 diabetes mellitus with diabetic chronic kidney disease; N18.3 - Chronic kidney disease, stage 3 ( moderate); Z79.4 - emt intermediate (current) use of insulin (11) CAD (coronary artery disease) Assessment/Plan: s/p pci, 2003 couldnt tolerate asa 2/2 gib/pud continue plavix/statin Code(s): I25.10 - ATHSCL HEART DISEASE OF [place] CORONARY ARTERY W/O ANG PCTRS Qualifiers: [place] vs. transplanted heart: [place] heart (12) HTN (hypertension) Assessment/Plan: elevated amlodipine, hydralazine, metoprolol monitor Code(s): I10 - ESSENTIAL (PRIMARY) HYPERTENSION Qualifiers: Hypertension type: essential hypertension Qualified Code(s): I10 - Essential (primary) hypertension
[2018-03-22] MEDS ORDERED: ATORVASTATIN CA 40 MG TABLET (FP) ONE (13:01)
[2018-03-22] MEDS ORDERED: ASPIRIN 325 MG TABLET ONE (13:01)
--- NOTE | 2018-03-22 13:02 | CONSULT ---
Admitting History and Physical - Primary Care Physician PCP: Monica Lomeli - Admission History of Present Illness: Per EMR: Mr Mora is an 87 yo M h/o Aortic Stenosis, CAD s/p PCI, HTN, DM, CKD, HLD BIBA due to slurred speech this morning Pt lives alone but daughter sees him every day. Four days ago, she found him on the floor, brief assessment revealed NO injury. She assisted him up. She last saw him last night at approximately 10pm prior to going to bed She went because daughter noticed slurred speech this AM at 0830. Last known well was 2200 last night. Per daughter, pt speech is better, but still slightly slurred. Pt says his L leg feels "wobbly" - Past Medical History Cardiovascular: Yes: HTN, Hyperlipdemia Endocrine: Yes: Diabetes Mellitus - Smoking History Smoking history: Former smoker Have you smoked in the past 12 months: No Aproximately how many cigarettes per day: 0 If you are a former smoker, when did you quit?: 47 YEARS AGO - Alcohol/Substance Use Hx Alcohol Use: No History - Admission Reason For Visit: CVA/TIA - Diagnostics X-ray: Report Reviewed CT Scan: Report Reviewed Speech Evaluation - Communication Primary Language: LITHUANIAN - Swallow Evaluation/Bedside Assessment Current Nutritional Intake: NPO
[2018-03-22] MEDS ORDERED: SODIUM CHLORIDE 1,000 ML IV SCH (14:00)
--- NOTE | 2018-03-22 14:43 | CON.CARD ---
Consult Consult Specialty:: Cardiology Referred by:: Daryl Reason for Consultation:: TIA - History of Present Illness Chief Complaint: TIA History of Present Illness: 87M h/o HTN, HLD, CKD stg 3, CAD s/p PCI x 2, DM, severe p/w slurred speech this morning at 8:30 AM, last normal last night 10 PM. Also complained of lightheadedness. no cp, dyspnea, edema, nausea. BP elevated 170s/60s. Slurred speech improved within 30 min after onset, no prior episdoes, no h/o stroke.No syncope. Has dyspnea on exertion and chest tightness on exertion worsening last [address] Nance for cardio. Head CT no acute process. Trop 0.17. EKG stable. - Past Medical History Cardio/Vascular: Yes: Aortic Stenosis, CAD, HTN, Hyperlipdemia Renal/: Yes: Renal Inusuff, Other (elevated PSA- followed by outpt Urology) Musculoskeletal: Yes: Osteoarthritis Endocrine: Yes: Diabetes Mellitus - Past Surgical History Past Surgical History: Yes: Hernia Repair, Joint Replacement (b/l hip), Stent - Alcohol/Substance Use Hx Alcohol Use: No History of Substance Use: reports: None - Smoking History Smoking history: Former smoker Have you smoked in the past 12 months: No Aproximately how many cigarettes per day: 0 If you are a former smoker, when did you quit?: 47 YEARS AGO - Social History ADL: Family Assistance History of Recent Travel: No <Brie Bush - Last Filed: 03/22/18 16:18> Home Medications <Monica Lomeli - Last Filed: 03/22/18 15:46> <Brie Bush - Last Filed: 03/22/18 16:18> - Allergies Allergies/Adverse Reactions: Allergies Allergy/AdvReac Type Severity Reaction Status Date / Time No Known Allergies Allergy Verified 03/22/18 09:34 - Home Medications Home Medications: Ambulatory Orders Amlodipine Besylate 10 mg PO DAILY 03/22/18 Clopidogrel Bisulfate [Plavix] 75 mg PO DAILY 03/22/18 Glimepiride 2 mg PO DAILY 03/22/18 Hydralazine HCl 10 mg PO BID 03/22/18 Insulin Glargine,Hum.rec.anlog [Lantus] 12 units SQ HS 03/22/18 Metoprolol Succinate 25 mg PO DAILY 03/22/18 Nitroglycerin [Nitrostat] 0.4 mg PO PRN 03/22/18 Simvastatin 40 mg PO DAILY 03/22/18 Family Disease History - Family Disease History Family Disease History: Other: Father (Alcoholism) <Brie Bush - Last Filed: 03/22/18 16:18> Vital Signs: Vital Signs Temperature 98.6 F 03/22/18 09:31 Pulse Rate 61 03/22/18 12:39 Respiratory Rate 18 03/22/18 12:39 Blood Pressure 168/53 L 03/22/18 12:39 O2 Sat by Pulse Oximetry (%) 98 03/22/18 12:39 - Other Data Labs, Other Data: CBC, [facility] 03/22/18 09:23 03/22/18 11:27 INR, PTT INR 1.01 (0.83-1.09) 03/22/18 09:23 Troponin, BNP 03/22/18 03/22/18 09:23 11:27 Troponin I Cancelled 0.17 H Troponin, BNP 03/22/18 03/22/18 09:23 11:27 Troponin I Cancelled 0.17 H <Monica Lomeli - Last Filed: 03/22/18 15:46> Vital Signs: Vital Signs Temperature 98.6 F 03/22/18 09:31 Pulse Rate 61 03/22/18 12:39 Respiratory Rate 18 03/22/18 12:39 Blood Pressure 168/53 L 03/22/18 12:39 O2 Sat by Pulse Oximetry (%) 98 03/22/18 12:39 - Other Data Labs, Other Data: CBC, BMP 03/22/18 09:23 03/22/18 11:27 INR, PTT INR 1.01 (0.83-1.09) 03/22/18 09:23 Troponin, BNP 03/22/18 03/22/18 09:23 11:27 Troponin I Cancelled 0.17 H Troponin, BNP 03/22/18 03/22/18 09:23 11:27 Troponin I Cancelled 0.17 H <Brie Bush - Last Filed: 03/22/18 16:18> Problem List - Problems (1) TIA (transient ischemic attack) Code(s): G45.9 - TRANSIENT CEREBRAL ISCHEMIC ATTACK, UNSPECIFIED (2) Elevated troponin Code(s): R74.8 - ABNORMAL LEVELS OF OTHER SERUM ENZYMES (3) Hyperkalemia Code(s): E87.5 - HYPERKALEMIA (4) Aortic stenosis Code(s): I35.0 - NONRHEUMATIC AORTIC (VALVE) STENOSIS (5) Chronic kidney disease (CKD) Code(s): N18.9 - CHRONIC KIDNEY DISEASE, UNSPECIFIED Qualifiers: Chronic kidney disease stage: stage 3 (moderate) Qualified Code(s): N18.3 - Chronic kidney disease, stage 3 (moderate) (6) Hyperlipemia Code(s): E78.5 - HYPERLIPIDEMIA, UNSPECIFIED Qualifiers: Hyperlipidemia type: pure hypercholesterolemia Qualified Code(s): E78.00 - Pure hypercholesterolemia, unspecified; E78.0 - Pure hypercholesterolemia (7) Type 2 diabetes mellitus Code(s): E11.9 - TYPE 2 DIABETES MELLITUS WITHOUT COMPLICATIONS Qualifiers: Diabetes mellitus retirement insulin use: with retirement use Diabetes mellitus complication status: with kidney complications Diabetes mellitus complication detail: with chronic kidney disease Chronic kidney disease stage : stage 3 (moderate) Qualified Code(s): E11.22 - Type 2 diabetes mellitus with diabetic chronic kidney disease; N18.3 - Chronic kidney disease, stage 3 ( moderate); 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 of insulin (8) HTN (hypertension) Code(s): I10 - ESSENTIAL (PRIMARY) HYPERTENSION Qualifiers: Hypertension type: essential hypertension Qualified Code(s): I10 - Essential (primary) hypertension <Monica Lomeli - Last Filed: 03/22/18 15:46> Assessment/Plan EKG: sinus, LVH, nonspecific T wave changes antlat, stable from prior CXR: no acute process CT head no acute process echo ([facility]) 08/2016: mild lvh, nl lv/rv, mild mr, mild-mod tr, rvsp 49, mod-sev , mild ar echo 09/2017: mild lvh, nl lv/rv, mild mr, mild tr, mild ar, sev as mibi 11/2014: bandar, no ecg changes, mod size inferolateral scar with mod linus- infarct ischemia, no tid, nl lvef. --> low risk, managed medically. a/p: 87 m hx , htn, niddm, hld, ckd, cad (no [place]) s/p pci x2 (last was [facility] in 10/2003), ckd (followed by Dr. valadez, recent cr 2.5), mild memory deficits p/w cp. TIA - echo - monitor on tele - carotid dopplers - neuro consulted Elevated troponin - initial 0.17 - EKG unchanged from prior : - repeat echo ordered - declined work up for TAVR in the past cad/hld - s/p pci x2 (last was cate to [facility] in 10/2003). f/u stress with low risk ischemia , has been managed medically. 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 Cont statin. htn -cont home meds mary alice on ckd - followed by Dr. Valadez. Cr inc from [facility] (reportedly 2.5) <Brie Bush - Last Filed: 03/22/18 16:18>
--- NOTE | 2018-03-22 15:36 | ECHO ---
Name: CHARBEL DONATO Exam:Adult Echocardiogram Study Date: 03/22/2018 02:17 PM Age: 87 yrs Reason For Study: r/o cva/tia/stroke Height: 65 in Weight: 150 lb BSA: 1.8 m2 MMode/2D Measurements & Calculations IVSd: 1.3 cm Ao root diam: 2.9 cm LVIDd: 4.7 cm LA dimension: 3.3 cm LVIDs: 2.8 cm LVPWd: 0.87 cm LVPWs: 1.4 cm EDV(Teich): 101.9 ml ESV(Teich): 30.1 ml LVOT diam: 1.6 cm TAPSE: 2.9 cm Doppler Measurements & Calculations MV E max arvin: 63.5 cm/sec Ao V2 max: 421.6 cm/sec MV A max arvin: 126.1 cm/sec Ao max P.2 mmHg MV E/A: 0.50 Ao V2 mean: 301.6 cm/sec MV dec time: 0.26 sec Ao mean P.8 mmHg Ao V2 VTI: 105.5 cm AI P1/2t: 459.6 msec DANTE(V,D): 0.42 cm2 AI max arvin: 390.2 cm/sec LV V1 max P.4 mmHg AI max P.2 mmHg LV V1 max: 91.7 cm/sec AI dec slope: 248.6 cm/sec2 TR max arvin: 244.3 cm/sec PA V2 max: 107.2 cm/sec TR max P.1 mmHg PA max P.6 mmHg Med Peak E' Arvin: 4.0 cm/sec Med E/e': 15.8 Lat Peak E' Arvin: 5.4 cm/sec Lat E/e': 11.7 Procedure A complete two-dimensional transthoracic echocardiogram was performed (2D, M-mode, Doppler and color flow Doppler). Left Ventricle There is mild concentric left ventricular hypertrophy. The left ventricular ejection fraction is norm al. Ejection Fraction = 55-60%. The left ventricular wall motion is normal. Right Ventricle The right ventricle is normal in size and function. Atria Normal left and right atrial size and function. Mitral Valve There is trace mitral regurgitation. Tricuspid Valve There is trace tricuspid regurgitation. There was insufficient TR detected to calculate RV systolic p ressure. Aortic Valve Severe valvular aortic stenosis. Mild aortic regurgitation. Pulmonic Valve There is no pulmonic valvular regurgitation. Great Vessels The aortic root is normal size. Pericardium/Pleura There is no pericardial effusion. Interpretation Summary There is mild concentric left ventricular hypertrophy. The left ventricular ejection fraction is normal. The right ventricle is normal in size and function. There is trace mitral regurgitation. There is trace tricuspid regurgitation. Severe valvular aortic stenosis. Mild aortic regurgitation. MD Joseph Nance 03/22/2018 03:36 PM
[2018-03-22 15:46] LABS: N-TERMINAL BNP 1537.1 pg/ml (5-450)
--- NOTE | 2018-03-22 15:56 | EKG ---
Test Reason : Blood Pressure : / mmHG Vent. Rate : 070 BPM Atrial Rate : 070 BPM P-R Int : 210 ms QRS Dur : 082 ms QT Int : 382 ms P-R-T Axes : 056 -31 112 degrees QTc Int : 412 ms SINUS RHYTHM WITH 1ST DEGREE A-V BLOCK POSSIBLE LEFT ATRIAL ENLARGEMENT LEFT AXIS DEVIATION LEFT VENTRICULAR HYPERTROPHY T WAVE ABNORMALITY, CONSIDER LATERAL ISCHEMIA ABNORMAL ECG WHEN COMPARED WITH ECG OF 18-SEP-2017 12:21, PREMATURE VENTRICULAR COMPLEXES ARE NO LONGER PRESENT NON-SPECIFIC CHANGE IN ST SEGMENT IN LATERAL LEADS Confirmed by MARGIE CLAYTON MD ([id number]) on 03/22/2018 3:55:58 PM Referred By: Confirmed By:MARGIE CLAYTON MD
[2018-03-22] MEDS ORDERED: PANTOPRAZOLE 40 MG TABLET (FP) ONE (15:57)
[2018-03-22] MEDS: PANTOPRAZOLE 20 MG TABLET (FP) PO SCH (15:57)
[2018-03-22] MEDS ORDERED: amLODIPine BESYLATE 10 MG TABLET (FP) PO ONE (16:09)
[2018-03-22] MEDS ORDERED: metoPROLOL SUCCINATE 25 MG TAB.SR.24H (FP) PO ONE (16:10)
[2018-03-22] MEDS ORDERED: hydrALAZINE HCL 10 MG TABLET PO ONE (16:15)
--- NOTE | 2018-03-22 16:21 | CON.CARD ---
Consult Consult Specialty:: Cardiology Referred by:: Daryl Reason for Consultation:: slurred speech, , elevated trop - History of Present Illness Chief Complaint: slurred speech History of Present Illness: 87M h/o HTN, HLD, CKD stg 3, CAD s/p PCI x 2, DM, severe p/w slurred speech this morning at 8:30 AM, last normal last night 10 PM. Also complained of lightheadedness. no cp, dyspnea, edema, nausea. BP elevated 170s/60s. Slurred speech improved within 30 min after onset, no prior episdoes, no h/o stroke.No syncope. Has dyspnea on exertion and chest tightness on exertion worsening last [address] Nance for cardio. Head CT no acute process. Trop 0.17. EKG stable. Feels back to normal now, no chest pain, palps, dizzy, sob, lightheadedness, edema - History Source History Provided By: Patient - Past Medical History Cardio/Vascular: Yes: Aortic Stenosis, CAD, HTN, Hyperlipdemia Gastrointestinal: Yes: GI Bleed, Peptic Ulcer Disease (2/2 ASA) Renal/: Yes: Renal Inusuff, Other (elevated PSA- followed by outpt Urology) Musculoskeletal: Yes: Osteoarthritis Endocrine: Yes: Diabetes Mellitus - Past Surgical History Past Surgical History: Yes: Hernia Repair, Joint Replacement (b/l hip), Stent - Alcohol/Substance Use Hx Alcohol Use: No History of Substance Use: reports: None - Smoking History Smoking history: Former smoker Have you smoked in the past 12 months: No Aproximately how many cigarettes per day: 0 If you are a former smoker, when did you quit?: 47 YEARS AGO - Social History ADL: Family Assistance History of Recent Travel: No Home Medications - Allergies Allergies/Adverse Reactions: Allergies Allergy/AdvReac Type Severity Reaction Status Date / Time No Known Allergies Allergy Verified 03/22/18 09:34 - Home Medications Home Medications: Ambulatory Orders Amlodipine Besylate 10 mg PO DAILY 03/22/18 Clopidogrel Bisulfate [Plavix] 75 mg PO DAILY 03/22/18 Glimepiride 2 mg PO DAILY 03/22/18 Hydralazine HCl 10 mg PO BID 03/22/18 Insulin Glargine,Hum.rec.anlog [Lantus] 12 units SQ HS 03/22/18 Metoprolol Succinate 25 mg PO DAILY 03/22/18 Nitroglycerin [Nitrostat] 0.4 mg PO PRN 03/22/18 Simvastatin 40 mg PO DAILY 03/22/18 Family Disease History - Family Disease History Family Disease History: Other: Father (Alcoholism) Review of Systems - Review of Systems Constitutional: reports: No Symptoms Eyes: reports: No Symptoms HENT: reports: No Symptoms Neck: reports: No Symptoms Cardiovascular: reports: No Symptoms Respiratory: reports: No Symptoms Gastrointestinal: reports: No Symptoms Genitourinary: reports: No Symptoms Musculoskeletal: reports: No Symptoms Integumentary: reports: No Symptoms Neurological: reports: Change in Speech Endocrine: reports: No Symptoms Hematology/Lymphatic: reports: No Symptoms Psychiatric: reports: No Symptoms Vital Signs: Vital Signs Temperature 98.6 F 03/22/18 09:31 Pulse Rate 81 03/22/18 16:07 Respiratory Rate 18 03/22/18 16:07 Blood Pressure 174/67 H 03/22/18 16:07 O2 Sat by Pulse Oximetry (%) 98 03/22/18 16:07 Constitutional: Yes: No Distress, Calm Eyes: Yes: Conjunctiva Clear, EOM Intact HENT: Yes: Atraumatic, Normocephalic Neck: Yes: Supple, Trachea Midline Respiratory: Yes: Regular, CTA Bilaterally Gastrointestinal: Yes: Normal Bowel Sounds, Soft Cardiovascular: Yes: Regular Rate and Rhythm JVD: No Carotid Bruit: No Heart Sounds: Yes: S1, S2 Murmur: Yes: Systolic Murmur, Grade 3 (crescendo-decrescendo, soft S2) Musculoskeletal: No: Back Pain Extremities: No: Cold Edema: No Peripheral Pulses WNL: Yes Peripheral Pulses: 2+ Left Doralis Pedis, 2+ Right Dorsalis Pedis Integumentary: No: Jaundice Neurological: Yes: Alert, Oriented Psychiatric: Yes: Alert, Oriented - Other Data Labs, Other Data: CBC, BMP 03/22/18 09:23 03/22/18 11:27 INR, PTT INR 1.01 (0.83-1.09) 03/22/18 09:23 Troponin, BNP 03/22/18 03/22/18 03/22/18 09:23 11:27 13:27 Troponin I Cancelled 0.17 H B-Natriuretic Peptide 1537.1 H Troponin, BNP 03/22/18 03/22/18 03/22/18 09:23 11:27 13:27 Troponin I Cancelled 0.17 H B-Natriuretic Peptide 1537.1 H Assessment/Plan EKG: sinus, LVH, nonspecific T wave changes antlat, stable from prior CXR: no acute process CT head no acute process echo ([facility]) 08/2016: mild lvh, nl lv/rv, mild mr, mild-mod tr, rvsp 49, mod-sev , mild ar echo 09/2017: mild lvh, nl lv/rv, mild mr, mild tr, mild ar, sev as echo 02/2018 mild LVH, nl LV/RV, mild MR, mild TR, severe mibi 11/2014: bandar, no ecg changes, mod size inferolateral scar with mod linus- infarct ischemia, no tid, nl lvef. --> low risk, managed medically. a/p: 87 m hx , htn, niddm, hld, ckd, cad (no [place]) s/p pci x2 (last was [facility] in 10/2003), ckd (followed by Dr. valadez, recent cr 2.5), mild memory deficits p/w cp. slurred speech, possible TIA - echo stable, severe - carotid dopplers mild to mod atherosclerosis - monitor on tele - continue plavix, statin - neuro consulted Elevated troponin - initial 0.17 in setting of Cr 2.8 - EKG unchanged from prior - no chest pain, clinical less c/w ACS. trend troponins, monitoring on tele : - declined work up for TAVR in the past, however endorses worsening dyspnea on exertion over last few months which may be symptom of severe , would readdress as outpatient - BNP elevated however clinically not in heart failure - repeat echo stable, severe cad/hld - s/p pci x2 (last was [facility] to [facility] in 10/2003). f/u stress with low risk ischemia , has been managed medically. 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 Cont statin. htn -cont home meds mary alice on ckd - followed by Dr. Valadez. Cr inc from [facility] (reportedly 2.5)
[2018-03-22] MEDS ORDERED: INSULIN SLIDING SCALE (NOVOLOG) 1 VIAL SQ SCH (16:30)
--- NOTE | 2018-03-22 17:55 | CON.NEURO ---
Consult - Past Medical History Cardio/Vascular: Yes: Aortic Stenosis, CAD, HTN, Hyperlipdemia Gastrointestinal: Yes: GI Bleed, Peptic Ulcer Disease (2/2 ASA) Renal/: Yes: Renal Inusuff, Other (elevated PSA- followed by outpt Urology) Musculoskeletal: Yes: Osteoarthritis Endocrine: Yes: Diabetes Mellitus - Past Surgical History Past Surgical History: Yes: Hernia Repair, Joint Replacement (b/l hip), Stent - Alcohol/Substance Use Hx Alcohol Use: No History of Substance Use: reports: None - Smoking History Smoking history: Former smoker Have you smoked in the past 12 months: No Aproximately how many cigarettes per day: 0 If you are a former smoker, when did you quit?: 47 YEARS AGO - Social History ADL: Family Assistance History of Recent Travel: No Home Medications - Allergies Allergies/Adverse Reactions: Allergies Allergy/AdvReac Type Severity Reaction Status Date / Time No Known Allergies Allergy Verified 03/22/18 09:34 - Home Medications Home Medications: Ambulatory Orders Amlodipine Besylate 10 mg PO DAILY 03/22/18 Clopidogrel Bisulfate [Plavix] 75 mg PO DAILY 03/22/18 Glimepiride 2 mg PO DAILY 03/22/18 Hydralazine HCl 10 mg PO BID 03/22/18 Insulin Glargine,Hum.rec.anlog [Lantus] 12 units SQ HS 03/22/18 Metoprolol Succinate 25 mg PO DAILY 03/22/18 Nitroglycerin [Nitrostat] 0.4 mg PO PRN 03/22/18 Simvastatin 40 mg PO DAILY 03/22/18 Family Disease History - Family Disease History Family Disease History: Other: Father (Alcoholism) Physical Exam-Neuro Vital Signs: Vital Signs Temperature 97.8 F 03/22/18 17:12 Pulse Rate 58 L 03/22/18 17:12 Respiratory Rate 18 03/22/18 17:12 Blood Pressure 178/72 H 03/22/18 17:12 O2 Sat by Pulse Oximetry (%) 98 03/22/18 17:12 Labs: CBC, BMP 03/22/18 09:23 03/22/18 11:27 INR, PTT INR 1.01 (0.83-1.09) 03/22/18 09:23 Assessment/Plan CC Episode of slurring of speech HPI 87 year old male history of HTN, CKD, CAD S/P PCI, DM. He woke up with slurred speec and symptoms resolved in 30 minute. He denies any dysarthria, diplopia, dysphagia, weakness or headhace at this time. His ct head isnormal. He is taking plavix and atorvastatin 40 mg at home. Past Medical History : CAD, HTN, HLD, Aortic stenosis, Peptic ulcer disease, CKD , aTHRITIS, dm Social Hx : former smoker, ROS, FH reviewed in chart NKDA Allergies Allergy/AdvReac Type Severity Reaction Status Date / Time No Known Allergies Allergy Verified 03/22/18 09:34 Home Medications: Amlodipine Besylate 10 mg PO DAILY 03/22/18 Clopidogrel Bisulfate [Plavix] 75 mg PO DAILY 03/22/18 Glimepiride 2 mg PO DAILY 03/22/18 Hydralazine HCl 10 mg PO BID 03/22/18 Insulin Glargine,Hum.rec.anlog [Lantus] 12 units SQ HS 03/22/18 Metoprolol Succinate 25 mg PO DAILY 03/22/18 Nitroglycerin [Nitrostat] 0.4 mg PO PRN 03/22/18 Simvastatin 40 mg PO DAILY 03/22/18 Neurological Examiantion WA 58, BP 178/72, RR 18 Alert oriented x 3, speech is normal cn all intact, eomi, pupils reactive, no face asymmetry moving all extremity sensation is noral ct head unremarkable Assessment : TIA , risk facor including DM, HTN, HLD, CKD , CAD , He is on plavix and statin at home Plan : continue plavix and increase atorvasatin 80 mg - spoke about stroke education with patient - mri of brain and carotid ultrasound - DM, HTN control Thanking you so much Gaurav Sorensen MD
[2018-03-22 20:41] LABS: ANION GAP 10 MMOL/L (8-16); BLOOD UREA NITROGEN 28 mg/dL (7-18); CALCIUM 8.2 mg/dL (8.5-10.1); CHLORIDE 111 mmol/L (98-107); CO2 21 mmol/L (21-32); CREATININE 2.8 mg/dL (0.55-1.3); GLUCOSE,RANDOM 208 mg/dL (74-106); SODIUM 142 mmol/L (136-145)
[2018-03-22] MEDS: hydrALAZINE HCL 10 MG TABLET PO SCH (21:38)
[2018-03-22] MEDS ORDERED: INSULIN (LEVEMIR) 100 UNITS/ML UNITS SQ SCH (22:00)
[2018-03-22 22:15] LABS: COCAINE, UR NEGATIVE ng/ml (CUTOFF=300); METHADONE, UR NEGATIVE ng/ml (CUTOFF=300); OPIATES, URI NEGATIVE ng/ml (CUTOFF=300); PHENCYCLIDINE,URINE NEGATIVE ng/ml (CUTOFF=25); URINE AMPHETAMINES NEGATIVE ng/ml (CUTOFF=500); URINE BARBITURATES NEGATIVE ng/ml (CUTOFF=200); URINE BENZODIAZEPINES NEGATIVE ng/ml (CUTOFF=200)
[2018-03-23] MEDS ORDERED: GLIMEPIRIDE 2 MG TABLET (FP) PO SCH (07:00)
[2018-03-23 07:07] LABS: BASO % 1.4 % (0-2.0); EOS % 6.3 % (0-4.5); HEMATOCRIT 36.9 % (35.4-49); HEMOGLOBIN 11.8 GM/dL (11.7-16.9); LYMPH % 25.8 % (8-40); MCH 26.5 pg (25.7-33.7); MCHC 32.1 g/dl (32.0-35.9); MEAN CELL VOLUME 82.5 fl (80-96); MEAN PLT VOLUME 7.3 fl (7.5-11.1); MONO % 10.7 % (3.8-10.2); NEUT % 55.8 % (42.8-82.8); PLATELET COUNT 183 K/MM3 (134-434); RBC 4.47 M/mm3 (4.00-5.60); RDW 16.9 % (11.9-15.9); WHITE BLOOD COUNT 4.5 K/mm3 (4.0-10.0)
[2018-03-23 07:54] LABS: ANION GAP 7 MMOL/L (8-16); BLOOD UREA NITROGEN 30 mg/dL (7-18); CALCIUM 8.4 mg/dL (8.5-10.1); CHLORIDE 114 mmol/L (98-107); CO2 22 mmol/L (21-32); CREATININE 2.5 mg/dL (0.55-1.3); GLUCOSE,RANDOM 74 mg/dL (74-106); MAGNESIUM 2.1 mg/dL (1.8-2.4); POTASSIUM 4.7 mmol/L (3.5-5.1); SODIUM 143 mmol/L (136-145)
[2018-03-23] MEDS: PANTOPRAZOLE 20 MG TABLET (FP) PO SCH (09:13)
[2018-03-23] MEDS: hydrALAZINE HCL 10 MG TABLET PO SCH (09:14)
--- NOTE | 2018-03-23 09:26 | PN ---
Progress Note (short form) - Note Progress Note: 87 year old male history of HTN, CKD, CAD S/P PCI, DM. He woke up with slurred speec and symptoms resolved in 30 minute. He denies any dysarthria, diplopia, dysphagia, weakness or headhace at this time. His ct head isnormal. He is taking plavix and atorvastatin 40 mg at home. His symptoms resolved, and mri fo brain and carotid ultrasound is unremarkable. Neurological Examiantion VT 58, BP 178/72, RR 18 Alert oriented x 3, speech is normal cn all intact, eomi, pupils reactive, no face asymmetry moving all extremity sensation is noral ct head unremarkable mri of brain and carotid ultrasound is unremarkable Assessment : TIA , risk facor including DM, HTN, HLD, CKD , CAD , He is on plavix and statin at home Plan : continue plavix and increase atorvasatin 80 mg - spoke to staff, and from neuro point of view, he can be discharged and follow up with me outpatient Thanking you so much Gaurav Sorensen MD
[2018-03-23] MEDS ORDERED: amLODIPine BESYLATE 10 MG TABLET (FP) PO SCH (10:00)
[2018-03-23] MEDS ORDERED: metoPROLOL SUCCINATE 25 MG TAB.SR.24H (FP) PO SCH (10:00)
[2018-03-23] MEDS ORDERED: CLOPIDOGREL BISULFATE 75 MG TABLET (FP) PO SCH (10:00)
--- NOTE | 2018-03-23 10:11 | PN ---
Progress Note, SEX THERAPIST - Note Progress Note: Selected Entries 03/22/18 03/23/18 03/23/18 23:08 02:00 05:29 Supper 75% Temperature 97.9 F 99 F Laboratory Tests 03/23/18 05:50 WBC 4.5 On reg diet/thin liquid sp/sw/cognition/languge back to normal. TIA per neurology No further f/u indicated.
--- NOTE | 2018-03-23 11:01 | PN ---
Progress Note (short form) - Note Progress Note: s: feeling well, no cp sob palps dizzy loc o: Vital Signs Period Temp Pulse Resp BP Sys/Salmeron Pulse Ox Last 24 Hr 97.8 F-99 F 58-81 18-18 137-178/53-83 97-98 Constitutional: Yes: No Distress, Calm Eyes: Yes: Conjunctiva Clear, Neck: Yes: Supple, Trachea Midline Respiratory: Yes: Regular, CTA Bilaterally Gastrointestinal: Yes: Normal Bowel Sounds, Soft Cardiovascular: Yes: Regular Rate and Rhythm JVD: No Heart Sounds: Yes: S1, S2 Murmur: Yes: Systolic Murmur, Grade 3 (crescendo-decrescendo, soft S2) Edema: No Integumentary: No: Jaundice Neurological: Yes: Alert, Oriented Psychiatric: Yes: Alert, Oriented Current Medications Generic Name Dose Route Start Last Admin Trade Name Freq PRN Reason Stop Dose Admin Amlodipine Besylate 10 mg 03/23/18 10:00 03/23/18 09:14 Norvasc - PO 10 mg DAILY JUMA Administration Atorvastatin Calcium 80 mg 03/23/18 22:00 Lipitor - PO HS JUMA Clopidogrel Bisulfate 75 mg 03/23/18 10:00 03/23/18 09:13 Plavix - PO 75 mg DAILY JUMA Administration Glimepiride 2 mg 03/23/18 07:00 03/23/18 06:24 Amaryl - PO 2 mg AM JUMA Administration Hydralazine HCl 10 mg 03/22/18 22:00 03/23/18 09:14 Apresoline - PO 10 mg BID JUMA Administration Insulin Detemir 12 units 03/22/18 22:00 03/22/18 21:46 Levemir Vial SQ 12 units HS JUMA Administration Metoprolol Succinate 25 mg 03/23/18 10:00 03/23/18 09:13 Toprol Xl - PO 25 mg DAILY JUMA Administration Pantoprazole Sodium 20 mg 03/22/18 15:00 03/23/18 09:13 Protonix - PO 20 mg DAILY JUMA Administration CBC, BMP 03/23/18 05:50 03/23/18 05:50 Assessment/Plan EKG: sinus, LVH, nonspecific T wave changes antlat, stable from prior CXR: no acute process CT head no acute process echo [facility]) 08/2016: mild lvh, nl lv/rv, mild mr, mild-mod tr, rvsp 49, mod-sev , mild ar echo 09/2017: mild lvh, nl lv/rv, mild mr, mild tr, mild ar, sev as echo 02/2018 mild LVH, nl LV/RV, mild MR, mild TR, severe mibi 11/2014: bandar, no ecg changes, mod size inferolateral scar with mod linus- infarct ischemia, no tid, nl lvef. --> low risk, managed medically. tele: sr a/p: 87 m hx , htn, niddm, hld, ckd, cad (no [place]) s/p pci x2 (last was [facility] in 10/2003), ckd (followed by Dr. valadez, recent cr 2.5), mild memory deficits p/w cp. slurred speech, possible TIA - echo stable, severe - carotid dopplers mild to mod atherosclerosis - tele benign - continue plavix, statin (higher dose per neuro) - neuro following Elevated troponin - borderline trop x3, not c/w acs - EKG unchanged from prior - no chest pain : - declined work up for TAVR in the past, however endorses worsening dyspnea on exertion over last few months which may be symptom of severe , would readdress as outpatient - BNP elevated however clinically not in heart failure - repeat echo stable, severe cad/hld - s/p pci x2 (last was [facility] in 10/2003). f/u stress with low risk ischemia , has been managed medically. 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 Cont statin. htn -cont home meds mary alice on ckd - followed by Dr. Valadez. Cr inc from [facility] (reportedly 2.5) cardiac bridges stable for dc
--- NOTE | 2018-03-23 13:38 | DS ---
Physical Examination Vital Signs: Vital Signs Temperature 97.7 F 03/23/18 11:52 Pulse Rate 61 03/23/18 11:52 Respiratory Rate 18 03/23/18 11:52 Blood Pressure 178/70 H 03/23/18 11:52 O2 Sat by Pulse Oximetry (%) 100 03/23/18 11:52 Constitutional: Yes: Well Nourished, No Distress, Calm Cardiovascular: Yes: WNL, Regular Rate and Rhythm, Murmur Respiratory: Yes: WNL, Regular, CTA Bilaterally. No: Accessory Muscle Use, SOB , Tachypnea, Wheezes Gastrointestinal: Yes: WNL, Normal Bowel Sounds, Soft. No: Distention, Tenderness, Vomiting Renal/: Yes: WNL Musculoskeletal: Yes: WNL Extremities: Yes: WNL Edema: No Neurological: Yes: WNL, Alert, Oriented Psychiatric: Yes: WNL, Alert, Oriented Labs: CBC, BMP 03/23/18 05:50 03/23/18 05:50 Discharge Summary Reason For Visit: TRANSIENT ISCHEMIC ATTACK (TIA) Current Active Problems MIRIAM (acute kidney injury) (Acute) Aortic stenosis (Acute) CAD (coronary artery disease) (Acute) Elevated troponin (Acute) HTN (hypertension) (Acute) Hyperkalemia (Acute) Hypertensive urgency (Acute) TIA (transient ischemic attack) (Acute) Unwitnessed fall (Acute) Hospital Course: 87 year old male admitted for evaluation of slurred speech, lightheadedness. TIA , neuro evaluated, head CT/MRI neg. Currently asymptomatic. High dose statin started, continue plavix. Pt evaluated by Cardiology for lightheadedness in the setting of severe stenosis, to continue outpt work up per cardiology. Pt in no acute distress, labs unremarkable, tolerating diet, ambulating without difficulty. Pt is medically stable for discharge home, follow up as directed. 32 minutes spent in discharge planning Condition: Good - Instructions Diet, Activity, Other Instructions: resume prev activity, diet meds as directed adequate hydration follow up as directed Referrals: Gaurav Sorensen MD [Staff Physician] - 1 Week Guy Chi MD [Primary Care Provider] - 1 Week Joseph Nance MD [Staff Physician] - Disposition: VNS/HOME HEALTH CARE - Home Medications Comprehensive Discharge Medication List: Ambulatory Orders Amlodipine Besylate 10 mg PO DAILY 03/22/18 Clopidogrel Bisulfate [Plavix] 75 mg PO DAILY 03/22/18 Glimepiride 2 mg PO DAILY 03/22/18 Hydralazine HCl 10 mg PO BID 03/22/18 Insulin Glargine,Hum.rec.anlog [Lantus] 12 units SQ HS 03/22/18 Metoprolol Succinate 25 mg PO DAILY 03/22/18 Nitroglycerin [Nitrostat] 0.4 mg PO PRN 03/22/18 Atorvastatin Ca [Lipitor] 80 mg PO HS #30 tablet 03/23/18
[2018-03-23 14:07] VITALS: BP 149/67; PULSE 56; TEMP 98
[2018-03-23] MEDS ORDERED: ATORVASTATIN CA 40 MG TABLET (FP) PO SCH (22:00)
[2018-03-23] MEDS ORDERED: ATORVASTATIN CA 80 MG TABLET (FP) PO SCH (22:00)
== END 2018-03-23 15:09 | disposition home health service (06) | DRG 69 ==
LOC: JER 09:21 → JERBED 12:17 → OBSVTOIN 12:17 → J4S 16:13
PROVIDERS: ADMIT Internal Medicine; ATTEND Internal Medicine
DX: G45.9 Transient cerebral ischemic attack, unspecified (principal); N17.9 Acute kidney failure, unspecified; E11.22 Type 2 diabetes mellitus with diabetic chronic kidney disease; I12.9 Hypertensive chronic kidney disease with stage 1 through stage 4 chronic kidney disease, or unspecified chronic kidney disease; N18.9 Chronic kidney disease, unspecified; E78.5 Hyperlipidemia, unspecified; I25.10 Atherosclerotic heart disease of native coronary artery without angina pectoris; Z95.5 Presence of coronary angioplasty implant and graft; I50.813 Acute on chronic right heart failure; Z87.891 Personal history of nicotine dependence; Z79.4 Long term (current) use of insulin; Z96.643 Presence of artificial hip joint, bilateral; R47.81 Slurred speech; I16.0 Hypertensive urgency; E87.5 Hyperkalemia; N18.3 Chronic kidney disease, stage 3 (moderate); R74.8 Abnormal levels of other serum enzymes; I35.0 Nonrheumatic aortic (valve) stenosis; M19.90 Unspecified osteoarthritis, unspecified site; Z87.11 Personal history of peptic ulcer disease; E86.0 Dehydration
CPT/HCPCS: 36415; 70450-TC; 70551-TC; 71045-TC-FY; 72131-TC; 80048; 80053; 80307; 81003; 81015; 82465; 82550; 82553; 82962; 83718; 83721; 83735; 83880; 84478; 84484; 85025; 85610; 85730; 86850; 86900; 86901; 87086; 93005; 93010; 93306-TC; 93880-TC; 97116-GP; 99285-25; J7030

== ENCOUNTER 2018-06-03 09:57 | Emergency (ER) | payer BC, OTHER ==
[2018-06-03 10:05] VITALS: BP 159/67; PULSE 71; TEMP 98; BMI 25.7
--- NOTE | 2018-06-03 10:42 | PDOC ---
History of Present Illness - General Chief Complaint: Nasal Bleeding Stated Complaint: NOSE BLEED Time Seen by Provider: 06/03/18 10:11 History Source: Patient Exam Limitations: No Limitations - History of Present Illness Initial Comments: 06/03/18 10:33 Pt. is an 88 y.o. M w/ PMHx. of HTN, HLD, NIDDM, CKD (Stage3), CAD(s/p 2 stents) , severe aortic stenosis (refusing TAVR), TIA, GI Bleed, and PUD (2/2 ASA use) presents to the ED with a left nostril bleed. Pt. states that his left nose started bleeding 1 hour ago. Pt. says that it was streaming out. Pt. denies any tenderness to the nostril or any trauma. Pt. states that he has been having a cold and had been blowing his nose frequently. It was during the act of blowing his nose that his nose started bleeding. Pt. endorses using toilet tissue to try to tamponade the bleeding. Afrin [place] ordered to facilitate vasoconstriction and stop the bleeding. Low suspicion for significant blood loss at this time as vital signs are stanble and clinically Pt. is asymptomatic. 06/03/18 12:36 Pt. lying comfortably in bed eating food and talking with daughter. Pt. denies any bleeding for the last hour. Timing/Duration: 1-3 hours Severity: mild Modifying Factors: improves with: rest Associated Symptoms: reports: denies symptoms Aspirin Received prior to arrival: Yes: no aspirin today Beta Geoffrey Contraindications(Core Measure): Yes: Not Prescribed Past History - Travel Traveled outside of the country in the last 30 days: No Close contact w/someone who was outside of country & ill: No - Past Medical History Allergies/Adverse Reactions: Allergies Allergy/AdvReac Type Severity Reaction Status Date / Time No Known Allergies Allergy Verified 06/03/18 10:05 Home Medications: Ambulatory Orders Amlodipine Besylate 10 mg PO DAILY 03/22/18 Clopidogrel Bisulfate [Plavix] 75 mg PO DAILY 03/22/18 Glimepiride 2 mg PO DAILY 03/22/18 Hydralazine HCl 10 mg PO BID 03/22/18 Insulin Glargine,Hum.rec.anlog [Lantus] 12 units SQ HS 03/22/18 Metoprolol Succinate 25 mg PO DAILY 03/22/18 Nitroglycerin [Nitrostat] 0.4 mg PO PRN 03/22/18 Atorvastatin Ca [Lipitor] 80 mg PO HS #30 tablet 03/23/18 Cardiac Disorders: Yes (STENT X2) CVA: Yes COPD: No Diabetes: Yes GI Disorders: Yes (GI Bleed, Peptic Ulcer Disease ) Disorders: No HTN: Yes Hypercholesterolemia: Yes - Surgical History Abdominal Surgery: Yes (HERNIA) Cardiac Surgery: Yes (card stent x 2) Orthopedic Surgery: Yes (B/L hip replacements ) - Suicide/Smoking/Psychosocial Hx Smoking Status: No Smoking History: Never smoked Have you smoked in the past 12 months: No Number of Cigarettes Smoked Daily: 0 If you are a former smoker, when did you quit?: 47 YEARS AGO Hx Alcohol Use: No Drug/Substance Use Hx: No Substance Use Type: None Review of Systems - Review of Systems Constitutional: No: Symptoms Reported HEENTM: Yes: Nose Congestion, Nose Bleeding. No: Nose Pain Respiratory: Yes: Cough Cardiac (ROS): No: Symptoms Reported ABD/GI: No: Symptoms Reported : No: Symptoms Reported Musculoskeletal: No: Symptoms Reported Integumentary: No: Symptoms Reported Neurological: No: Symptoms reported Endocrine: No: Symptoms Reported Hematologic/Lymphatic: No: Symptoms Reported *Physical Exam - Vital Signs Last Vital Signs Temp Pulse Resp BP Pulse Ox 98 F 71 18 159/67 99 06/03/18 10:02 06/03/18 10:02 06/03/18 10:02 06/03/18 10:02 06/03/18 10:02 - Physical Exam General Appearance: Yes: Nourished, Appropriately Dressed, Apparent Distress HEENT: positive: [place], Normal Voice, Symmetrical, Nasal Congestion (with benito blood in the nasal cavity ). negative: Sinus Tenderness Neck: positive: Trachea midline, Normal Thyroid, Supple. negative: Tender, Lymphadenopathy (R), Lymphadenopathy (L) Respiratory/Chest: positive: Lungs Clear, Normal Breath Sounds. negative: Chest Tender, Respiratory Distress, Accessory Muscle Use, Labored Respiration, Crackles, Rales, Wheezing Cardiovascular: positive: Regular Rhythm, Regular Rate, S1, S2, Edema, Murmur. negative: JVD Vascular Pulses: Dorsalis-Pedis (R): 2+ (2+ radial ), Doralis-Pedis (L): 2+ (2+ radial ) Gastrointestinal/Abdominal: positive: Normal Bowel Sounds, Soft. negative: Distended, Guarding, Rebound, Tenderness Rectal Exam: positive: deferred Lymphatic: negative: Adenopathy, Tenderness Musculoskeletal: positive: Normal Inspection. negative: CVA Tenderness Extremity: positive: Normal Capillary Refill, Pedal Edema (trace pitting edema ) . negative: Tender, Coldness, Cyanosis, Swelling, Calf Tenderness, Erythema Integumentary: positive: Dry, Warm, Swelling. negative: Cyanotic, Erythema, Mottled, Pale, Cold, Diaphoresis, Moist, Rash Neurologic: positive: Fully Oriented, Alert, Normal Mood/Affect, Normal Response , Respond to painful stimul, Responsive Moderate Sedation - Procedure Monitoring Vital Signs: Procedure Monitoring Vital Signs Temperature 98 F 06/03/18 10:02 Pulse Rate 71 06/03/18 10:02 Respiratory Rate 18 06/03/18 10:02 Blood Pressure 159/67 06/03/18 10:02 O2 Sat by Pulse Oximetry (%) 99 06/03/18 10:02 *DC/Admit/Observation/Transfer Diagnosis at time of Disposition: Epistaxis - Discharge Dispostion Disposition: HOME Condition at time of disposition: Improved Decision to Admit order: No - Referrals Referrals: Guy Chi MD [Staff Physician] - 1 week - Patient Instructions Printed Discharge Instructions: DI for Nosebleed Additional Instructions: You came in with a nose bleed. We treated it with compression and Afrin [place]. Please use 2 puffs in each nostril TWICE a day NEEDED. If you are not bleeding please do not use this medication. Please continue to use the Afrin [place] as instructed. Please follow up with your Primary Care Physician within 1 week. Please return to the ED if you are having persistent bleeding, worsening dizziness/lightheadedness, chest pain or any other concerning symptoms. - Post Discharge Activity
[2018-06-03] MEDS ORDERED: OXYMETAZOLINE 0.05% NASAL SOLUTION 15 ML BOTTLE NS PRN (11:13)
--- NOTE | 2018-06-03 11:21 | PDOC ---
Attending Attestation - HPI HPI: 06/03/18 11:28 The patient is a 88 year old male, with a significant past medical history of HTN, HLD, NIDDM, CKD), CAD(s/p stenting x2), severe aortic stenosis, TIA, GI Bleed, and PUD (2/2 ASA use), who presents to the emergency department with, a left nostril nose bleed. He describes the bleeding as initially streaming, mildly alleviated with toilet paper. He denies any recent trauma to the nose. He denies any recent fevers, chills, headache or dizziness. He denies any recent nausea, vomit, diarrhea or constipation. He denies any recent chest pain or shortness of breath. He denies any recent dysuria, frequency, urgency or hematuria. Allergies: NKDA Past surgical history:bilateral hip replacement, stent, hernia repair Primary Care Physician: Dr. Chi <Jennifer Ramsay - Last Filed: 06/03/18 11:28> - Resident Resident Name: Mika Palacio - ED Attending Attestation I have performed the following: I have examined & evaluated the patient, The case was reviewed & discussed with the resident, I agree w/resident's findings & plan, Exceptions are as noted - Physicial Exam PE: GENERAL: Awake, alert, and fully oriented, in no acute distress HEAD: No signs of trauma EYES: PERRLA, EOMI, sclera anicteric, conjunctiva clear ENT: Auricles normal inspection, hearing grossly normal, nares patent, oropharynx clear without exudates. Moist mucosa. +Small clot in the L nare, no obvious source of bleeding, no active bleeding NECK: Normal ROM, supple, no lymphadenopathy, JVD, or masses LUNGS: Breath sounds equal, clear to auscultation bilaterally. No wheezes, and no crackles HEART: Regular rate and rhythm, normal S1 and S2, no murmurs, rubs or gallops ABDOMEN: Soft, nontender, normoactive bowel sounds. No guarding, no rebound. No masses EXTREMITIES: Normal range of motion, no edema. No clubbing or cyanosis. No cords, erythema, or tenderness NEUROLOGICAL: Cranial nerves II through XII grossly intact. Normal speech, normal gait. Motor and sensation intact SKIN: Warm, Dry, normal turgor, no rashes or lesions noted. - Medical Decision Making Patient initially was blowing his nose repeatedly and dabbing it. Counseled him to hold pressure directly for 10 minutes, which stopped the bleeding. Also used afrin to help vasoconstrict. Stable for DC home. <Della Rios - Last Filed: 06/03/18 14:18> Attestations - Attestations 06/03/18 11:28 Documentation prepared by Jennifer Ramsay, acting as medical scientist for Della Rios MD. <Jennifer Ramsay - Last Filed: 06/03/18 11:28>
== END 2018-06-03 12:40 | disposition home or self-care (01) ==
LOC: JER 09:57
PROC: 093K7ZZ Control Bleeding in Nasal Mucosa and Soft Tissue, Via Natural or Artificial Opening (ICD-10-PCS; principal; 2018-06-03)
DX: R04.0 Epistaxis (principal); I25.10 Atherosclerotic heart disease of native coronary artery without angina pectoris; I13.10 Hypertensive heart and chronic kidney disease without heart failure, with stage 1 through stage 4 chronic kidney disease, or unspecified chronic kidney disease; N18.3 Chronic kidney disease, stage 3 (moderate); Z95.5 Presence of coronary angioplasty implant and graft; E11.9 Type 2 diabetes mellitus without complications; Z79.4 Long term (current) use of insulin; E78.5 Hyperlipidemia, unspecified; I35.0 Nonrheumatic aortic (valve) stenosis; K27.9 Peptic ulcer, site unspecified, unspecified as acute or chronic, without hemorrhage or perforation; Z86.73 Personal history of transient ischemic attack (TIA), and cerebral infarction without residual deficits; E11.22 Type 2 diabetes mellitus with diabetic chronic kidney disease
CPT/HCPCS: 30901-25; 99282-25

== ENCOUNTER 2018-07-02 20:56 | Emergency (ER) | payer BC ==
[2018-07-02] MEDS ORDERED: ACETAMINOPHEN 325 MG TABLET (FP) PO ONE (21:08)
--- NOTE | 2018-07-02 21:08 | PDOC ---
Rapid Medical Evaluation Medical Evaluation: Allergies Allergy/AdvReac Type Severity Reaction Status Date / Time No Known Allergies Allergy Verified 06/03/18 10:05 I have performed a brief in-person evaluation of this patient. The patient presents with a chief complaint of: Hx DM, B/L hip replacement; C/O L hip pain from this evening; denies falls; was going to stand up when he felt the pain I have ordered the following: Tylenol, L hip x-ray The patient will proceed to the ED for further evaluation. 07/02/18 21:06
[2018-07-02 21:10] VITALS: BP 136/57; PULSE 59; TEMP 97.3; BMI 26.6
--- NOTE | 2018-07-03 02:13 | PDOC ---
History of Present Illness - General Chief Complaint: Pain Stated Complaint: L HIP PAIN Time Seen by Provider: 07/02/18 21:06 History Source: Patient, Old Records Exam Limitations: No Limitations - History of Present Illness Initial Comments: HPI: 88 y/o male presenting to [facility] ER complaining of sudden onset pain running from left hip to left knee. Symptoms started while standing at a business meeting Monday evening (02 Jul 2018). He experienced difficulty standing, which prompted the emergent evaluation. Pt endorses resolved episode of numbness and tingling in left calf a few days ago. Denies similar symptoms today. Denies trauma to the area. Denies rashes or bruising. Pt is s/p 2x left hip replacement. Last was in 2011 after traumatic fall. Cadaver femur was placed. Surgery was performed at a [facility] facility by unknown surgeon. Pt does not follow regularly with an orthopedist. Walks with a cane. PCP: Alon Telles Hx: - CAD s/p stenting - Diabetes - HTN - S/p R and L hip replacements Past History - Past Medical History Allergies/Adverse Reactions: Allergies Allergy/AdvReac Type Severity Reaction Status Date / Time No Known Allergies Allergy Verified 07/02/18 21:08 Home Medications: Ambulatory Orders Amlodipine Besylate 10 mg PO DAILY 03/22/18 Clopidogrel Bisulfate [Plavix] 75 mg PO DAILY 03/22/18 Glimepiride 2 mg PO DAILY 03/22/18 Hydralazine HCl 10 mg PO BID 03/22/18 Insulin Glargine,Hum.rec.anlog [Lantus] 12 units SQ HS 03/22/18 Metoprolol Succinate 25 mg PO DAILY 03/22/18 Nitroglycerin [Nitrostat] 0.4 mg PO PRN 03/22/18 Atorvastatin Ca [Lipitor] 80 mg PO HS #30 tablet 03/23/18 Sodium Polystyrene Sulfonate [Kayexalate] 15 gm PO ONCE #1 bottle 07/03/18 Cardiac Disorders: Yes (STENT X2) CVA: Yes COPD: No Diabetes: Yes GI Disorders: Yes (GI Bleed, Peptic Ulcer Disease ) Disorders: No HTN: Yes Hypercholesterolemia: Yes - Surgical History Abdominal Surgery: Yes (HERNIA) Cardiac Surgery: Yes (card stent x 2) Orthopedic Surgery: Yes (B/L hip replacements ) - Suicide/Smoking/Psychosocial Hx Smoking Status: No Smoking History: Former smoker Have you smoked in the past 12 months: No Number of Cigarettes Smoked Daily: 0 If you are a former smoker, when did you quit?: 45 years ago Information on smoking cessation initiated: No Hx Alcohol Use: No Drug/Substance Use Hx: No Substance Use Type: None Review of Systems - Review of Systems Able to Perform ROS?: Yes Comments:: In addition to that documented in the HPI above, the additional ROS was obtained : Constitutional: Denies fevers or chills MSK: Per HPI CV: Denies chest pain Resp: Denies acute SOB Trauma: Denies injury to area of complaint Neuro: Denies numbness or tingling *Physical Exam - Vital Signs Last Vital Signs Temp Pulse Resp BP Pulse Ox 97.3 F L 59 L 18 136/57 L 97 07/02/18 21:08 07/02/18 21:08 07/02/18 21:08 07/02/18 21:08 07/02/18 21:08 - Physical Exam Comments: Constitutional: Well-developed, well-nourished, non-toxic male in no acute distress or obvious discomfort. Found semi-fowlers on hospital hallway bed. Alert and oriented x4. Answered all questions appropriately and completely. Speech was non-labored, non-pressured. Head: Normocephalic. No obvious external signs of trauma. Eyes: Sclerae white. EARS: Hearing grossly intact. NOSE: No nasal discharge. Neck: Supple, trachea is midline. Cardiovascular: Regular rate and regular rhythm. No murmur, rubs, clicks, or gallops. Peripheral pulses: Radial pulses full. Respiratory: Breathing unlabored. Equal chest rise and fall. Clear to auscultation bilaterally. No stridor, no wheezing, no rhonchi. MSK: Mild point tenderness to proximal anterior portion of left thigh, made worse with straightening extremity. Good active and passive ROM of left lower extremity. No bruising or other overlying skin lesion. Old appearing post surgical scar extending from lateral aspect of left hip to lateral aspect of left knee. Pt able to stand and take several steps without worsening pain. 2+ pedal pulse in left foot. Neuro: Alert and oriented. Moving all four extremities spontaneously. Skin: Warm, dry, and intact. No bruising, rashes, or other lesions. Psych: Affect: appropriate. Mood: normal. Moderate Sedation - Procedure Monitoring Vital Signs: Procedure Monitoring Vital Signs Temperature 97.3 F L 07/02/18 21:08 Pulse Rate 59 L 07/02/18 21:08 Respiratory Rate 18 07/02/18 21:08 Blood Pressure 136/57 L 07/02/18 21:08 O2 Sat by Pulse Oximetry (%) 97 07/02/18 21:08 ED Treatment Course - LABORATORY CBC & Chemistry Diagram: 07/03/18 03:50 07/03/18 05:19 - RADIOLOGY Radiograph Interpretation: Non-con CT of Left Lower Extremity: Cornelio Root MD wrote on Jul 03, 2018 at 04:36 AM: Referring Physician: BISHOP SOLOMON Patient Name: CHARBEL DONATO THIS IS A PRELIMINARY REPORT FROM [facility] N[facility] DATE OF SERVICE: 2018-07-03 04:07:23 IMAGES: [id number] EXAM: CT left hip without contrast HISTORY: Left hip pain COMPARISON: None. FINDINGS: Total left hip revision arthroplasty. There is diffuse lucency between the bone and femoral prosthesis, consistent with loosening. There is a cyst in the medial left acetabulum, likely reflecting loosening as well. Surgical hardware itself appears intact. There is a nonhealed mid femoral fracture although this region is surgically transfixed . There is no acute fracture. No abnormal fluid collections. 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 THIS DOCUMENT HAS BEEN ELECTRONICALLY SIGNED Hector Root MD 07/03/2018 04:35 EST - Medications Given in the ED: ED Medications Discontinued Medications Generic Name Dose Route Start Last Admin Trade Name Freq PRN Reason Stop Dose Admin Acetaminophen 650 mg 07/02/18 21:08 07/02/18 22:30 Tylenol - PO 07/02/18 21:09 650 mg ONCE ONE Administration Medical Decision Making - Medical Decision Making *Reviewed vital signs, nursing notes, and prior visit documentation (if available). 88 y/o male with sudden onset let hip pain in setting of left hip replacement with cadaver femur. No systemic symptoms. Vitals unremarkable for hypotension or tachycardia. Afebrile. Physical exam as described above. Plain film of left hip revealed lucency around proximal left intramedullary shaft. Radiologist recommended orthopedic consult. No acute fracture or dislocation. 03:16 Telephone page sent via answering service to orthopedic service international guest coordinator, Drs. Rnad/Devon. Awaiting call back. 03:[address] Rand. Requested CT of extremity, ESR, CRP, CBC, and BMP. 04:42 Lab called and reported [place] and [place] tubes were hemolyzed. Will reorder corresponding labs. 04:57 Repeat telephone consult with Dr. Rand. Discussed CT findings concerning for joint loosening. Requests pt be admitted. Pt made NPO. Ordered 12-lead EKG and CXR for admission and possible pre-op. Ordered NS gtts at 120mL/hr for maintenance fluids. 05:[address]. Awaiting call back. 05:21 In person consultation with [facility] Attending Dr. Holland. Verbally appraised of the pts HPI, ED course, and current plan of management. Requested CBC and BMP results prior to admission. Waiting on results of redraw. CBC unremarkable for leukocytosis. ESR and CRP not elevated. Low suspicion for acute infectious process. BMP remarkable for elevated Cr and BUN. At historic baseline per [employer]. Low suspicion for acute renal injury. Mildly hypoglycemic. Admitting team ordered amp of D50. 06:23 In person discussion with Drs. Rand, Amalia, and Belen. All agree pts admission is not needed given Dr. Faustin opinion that no emergent orthopedic intervention is required at this time. Will provide home prescription for single dose of Kayexalate for pts borderline hyperkalemia. Pt will follow up with PCP to have labs rechecked with 48 hours. Will also follow up with orthopedic surgeon of record. Answered all questions. Provided return precautions. Pt expressed verbal understanding and agreement with plan to discharge home with outpatient follow up. 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 The radiology studies showed you have some breakdown in the hip. You were evaluated in the department by Dr. Roach, an orthopedic surgeon. He believes you are safe to go home and follow up with the orthopedic surgeon who previously did you surgery. Also, your labs showed your potassium was slightly elevated above normal. This is likely an incidental finding. I have sent a prescription to for a medication called Kayexalate to [facility]. Take this medication today after you are discharged. You will need to follow up with your PCP within 48 hours to have this labs rechecked. You will need to call your PCP to make the appointment. You also need to follow up with the orthopedic surgeon that did the surgery at [facility]. I have attached copies of the results to this packet. Take it with you so your surgeon can review them. Go to the nearest emergency department if your condition worsens or you feel like you need additional emergency evaluation. Print Language: UKRAINIAN - Post Discharge Activity
--- NOTE | 2018-07-03 02:14 | PDOC ---
Attending Attestation - Resident Resident Name: Epifanio Taabres - ED Attending Attestation I have performed the following: I have examined & evaluated the patient, The case was reviewed & discussed with the resident, I agree w/resident's findings & plan - HPI HPI: 07/03/18 05:29 Patient complaining of pain to the left thigh and hip, there is no history of blunt trauma or fall. Patient is status post left hip replacement with cadaver transplant in place as well. - Physicial Exam PE: 07/03/18 05:35 Agree with resident's exam - Medical Decision Making 07/03/18 05:35 88-year-old male with left thigh pain X-rays and CT scans were performed of the left hip which show loosening of the hardware Case discussed with orthopedics who recommends admission, they will see in consultation
[2018-07-03 04:12] LABS: HEMATOCRIT 32.5 % (35.4-49); LYMPH % 21.8 % (8-40); MCH 29.2 pg (25.7-33.7); MCHC 33.7 g/dl (32.0-35.9); MEAN CELL VOLUME 86.6 fl (80-96); MEAN PLT VOLUME 7.6 fl (7.5-11.1); MONO % 9.2 % (3.8-10.2); PLATELET COUNT 205 K/MM3 (134-434); RBC 3.75 M/mm3 (4.00-5.60); RDW 16.8 % (11.9-15.9); WHITE BLOOD COUNT 5.9 K/mm3 (4.0-10.0)
[2018-07-03 04:30] LABS: INR 0.98 (0.83-1.09); PROTHROMBIN TIME (PATIENT) 11.6 SEC (9.7-13.0)
[2018-07-03 04:32] LABS: ACTIVATED PTT 28.4 SECONDS (25.2-36.5)
[2018-07-03] MEDS ORDERED: LACTATED RINGERS SOLUTION 1,000 ML/1,000 ML INFUS.BAG IV SCH (05:00)
[2018-07-03 05:45] LABS: ANION GAP 5 MMOL/L (8-16); BLOOD UREA NITROGEN 39 mg/dL (7-18); CALCIUM 7.7 mg/dL (8.5-10.1); CHLORIDE 118 mmol/L (98-107); CO2 19 mmol/L (21-32); GLUCOSE,RANDOM 66 mg/dL (74-106); POTASSIUM 5.2 mmol/L (3.5-5.1); SODIUM 142 mmol/L (136-145)
[2018-07-03] MEDS ORDERED: DEXTROSE 50%-WATER - 25 GM/50 ML VIAL IVPUSH ONE (06:05)
--- NOTE | 2018-07-03 06:05 | PN ---
Teaching Attending Note Name of Resident: Soren Medina ATTENDING PHYSICIAN STATEMENT I saw and evaluated the patient. I reviewed the resident's note and discussed the case with the resident. I agree with the resident's findings and plan as documented. SUBJECTIVE: Seen and examined; please refer to resident note for further historical documentation. Mary Anne, this is a 88 y/o presenting with hip pain. He has a history of hip replacement done at [facility] with old records pending. The symptoms started yesterday hand he had difficulty standing and L-sided parasthesias several days ago. Walks with a cane. He has a cadeveric femur in. Orthopedics consulted from the emergency room; appreciate expert opinion. XR of the LE shows b/l hip replacements in good allignment with chronic fracture of the left femur on the proximal and midshaft portions with good allignment as well. Finally, there was a lucency detected at the proximal L- intramed area that radiology recommended ortho eval. CT was recommended by specialist which showed loosening of the femoral and acetabular complement to the L-hip replacement with unhealed mid-femoral fracture. He will be placed on the medicine service with orthopedic consult. 10 sys ROS done and negative aside from HPI PMH, PSH, Family hx, Social hx reviewed Medication list pending reconciliation OBJECTIVE: VS, labs, imaging reviewed NAD, AAO, resting in bed in ER NC AT EOMI PERRLA RRR s1/2 no mgr Lungs CTAB, w/ sym exp Some restricted ROM at the affected hip due to pain, normal muscle tone, neurovascularly intact Normal mood, appropriate behavior ASSESSMENT AND PLAN: Patient presents with losening of the femoral and acetabular complement to the L -hip with unhealed mid-femoral fracture. 1) Losening of hardware/unhealed mid-fem fx -Placing on the floor with orthopedic sgy consult -NPO in case procedure; IVF. Hold his plavix in case of inpending procedure ( has stents but not recent) -Further treatment and management per orthopedic sgy. -Pain control, PT when cleared by ortho, bowel reg 2) Hx CAD 3) Hx HTN 4) Hypoglycemia 5) Hx DM 6) Hx HLD 7)
[2018-07-03] MEDS ORDERED: SODIUM CHLORIDE 1,000 ML IV SCH (06:15)
[2018-07-03] MEDS ORDERED: SODIUM POLYSTYRENE SULFONATE 15 GM/60 ML BOTTLE PO ONE (06:15)
[2018-07-03] MEDS ORDERED: DEXTROSE 50%-WATER - 25 GM/50 ML VIAL ONE (06:18)
--- NOTE | 2018-07-03 06:22 | CONSULT ---
Consult - text type - Consultation Consultation Note: ORTHOPEDIC SURGERY CONSULTATION NOTE Department of Orthopedic Surgery HISTORY OF PRESENT ILLNESS Mr. Velazco is a 88 year old male who presents to [facility] ER with left hip pain that started yesterday. Symptoms started while standing at a business meeting Monday evening (02 Jul 2018). He experienced difficulty standing, which prompted the emergent visit. Denies similar symptoms today. Denies trauma to the area. Denies rashes or bruising. Pt is s/p 2x left hip replacement. Last was in 2011 after traumatic fall, and a revision surgery was performed on the left lower extremity. Surgery was performed at a [facility] by unknown surgeon. The orthopedic service was consulted for left hip pain. Denies any other injuries. Denies numbness, tingling or other constitutional complaints. Denies/ Endorses tobacco use, drug use, alcohol abuse. The patient lives with family and uses a cane for assistive device at baseline. He is able to walk currently with no pain in his left or right lower extremity. FAMILY HISTORY na REVIEW OF SYMPTOMS A twelve-point review of systems was performed and was negative except as noted in HPI. PHYSICAL EXAM Constitutional: Alert and oriented to person, place, and time. Appears well- developed and well-nourished. No acute distress, appropriate mood and affect. Right Upper Extremity: Skin warm, dry, and intact; no lesions, rashes or ulcers noted. Muscle mass equal and symmetric to contralateral side. No atrophy noted. No masses or effusions noted. No tenderness to palpation all joints; nontender throughout rest of extremity. Full passive and active ROM, free from pain. Joints stable with no pathologic laxity. M/R/U/MSK/AX motor intact; SILT distally; 2+ radial pulses; Cap refill brisk. Tone and reflexes normal. Left Upper Extremity: Skin warm, dry, and intact; no lesions, rashes or ulcers noted. Muscle mass equal and symmetric to contralateral side. No atrophy noted. No masses or effusions noted. No tenderness to palpation all joints; nontender throughout rest of extremity. Full passive and active ROM, free from pain. Joints stable with no pathologic laxity. M/R/U/MSK/AX motor intact; SILT distally; 2+ radial pulses; Cap refill brisk. Tone and reflexes normal. Right Lower Extremity: Skin warm, dry, and intact; no lesions, rashes or ulcers noted. Healed surgical scars no sigs of infection; Muscle mass equal and symmetric to contralateral side. No atrophy noted. No masses or effusions noted. No tenderness to palpation all joints; nontender throughout rest of extremity. No cords or calf tenderness No significant calf/ankle edema. Full passive and active ROM, free from pain. Joints stable with no pathologic laxity. EHL/TA/GS motor intact; SILT distally; 2+ DP pulses; Cap refill brisk. Tone and reflexes normal. Able to SLR, negative log roll. Left Lower Extremity: Skin warm, dry, and intact; no lesions, rashes or ulcers noted. Healed surgical scars no sigs of infection; Muscle mass equal and symmetric to contralateral side. No atrophy noted. No masses or effusions noted. No tenderness to palpation all joints; nontender throughout rest of extremity. No cords or calf tenderness No significant calf/ankle edema. Full passive and active ROM, free from pain. Joints stable with no pathologic laxity. EHL/TA/GS motor intact; SILT distally; 2+ DP pulses; Cap refill brisk. Tone and reflexes normal. Able to SLR, negative log roll. Active Problems Problem Status Category Onset Femoral loosening of prosthetic left hip Acute Medical Left hip pain Acute Medical Past Medical History Cardio/Vascular Aortic Stenosis,CAD,HTN,Hyperlipdemia Gastrointestinal GI Bleed,Peptic Ulcer Disease Renal/ Renal Inusuff,Other Endocrine Diabetes Mellitus Past Surgical History Past Surgical History Hernia Repair,Joint Replacement,Stent Social History Smoking history Former smoker Aproximately how many 0 cigarettes per day If you are a former smoker, 45 years ago when did you quit? Hx Alcohol Use No History of Substance Use None ADL Family Assistance History of Recent Travel No Allergies Allergy/AdvReac Type Severity Reaction Status Date / Time No Known Allergies Allergy Verified 07/02/18 21:08 Active Medications Generic Name Dose Route Start Last Admin Trade Name Freq PRN Reason Stop Dose Admin Sodium Chloride 1,000 mls @ 75 mls/hr 07/03/18 06:15 Normal Saline - IV ASDIR JUMA Vital Signs (last) Temp Pulse Resp BP Pulse Ox 97.3 F L 59 L 18 136/57 L 97 07/02/18 21:08 07/02/18 21:08 07/02/18 21:08 07/02/18 21:08 07/02/18 21:08 Intake and Output 07/01/18 07/02/18 07/03/18 23:59 23:59 23:59 Other: Weight 155 lb Height 5 ft 4 in Body Mass Index (BMI) 26.6 Laboratory 07/03/18 03:50 07/03/18 05:19 PT with INR 11.60 SEC (9.7-13.0) 07/03/18 03:50 PTT (Actin FS) 28.4 SECONDS (25.2-36.5) 07/03/18 03:50 ESR: 14 CRP: <0.3 IMAGING I personally reviewed all radiographs, CT, and other imaging. They demonstrate bilateral total hips that are in good positioning with no signs of loosening. There is a lucency along the mid and distal prosthesis. No acute fractures or dislocations seen. ASSESSMENT AND PLAN Mr. Velazco is a 88 year old male presenting s/p left hip and thigh pain - currently completely resolved. No signs of infection on gross exam, and negative ESR/CRP/WBC; We have reviewed the imaging and clinical findings in detail, as well as their potential implications. After appropriate informed discussion, we agreed on the following plan: - Pain control - WBAT with assistance - Follow up with his original orthopedic surgeon at [facility] location within 2 days. - No further orthopedic surgical intervention at this time. All questions were answered. Thank you for involving our team in the care of this patient.
[2018-07-03] MEDS ORDERED: SODIUM BICARBONATE 650 MG TABLET PO SCH (10:00)
--- NOTE | 2018-07-03 16:28 | EKG ---
Test Reason : Blood Pressure : / mmHG Vent. Rate : 051 BPM Atrial Rate : 051 BPM P-R Int : 206 ms QRS Dur : 080 ms QT Int : 438 ms P-R-T Axes : 051 -21 123 degrees QTc Int : 403 ms SINUS BRADYCARDIA WITH SINUS ARRHYTHMIA POSSIBLE LEFT ATRIAL ENLARGEMENT LEFT VENTRICULAR HYPERTROPHY WITH REPOLARIZATION ABNORMALITY ABNORMAL ECG WHEN COMPARED WITH ECG OF 22-MAR-2018 09:32, NO SIGNIFICANT CHANGE WAS FOUND Confirmed by Thierry Bridges ([id number]) on 07/03/2018 4:28:12 PM Referred By: Confirmed By:Thierry Bridges
== END 2018-07-03 07:26 | disposition home or self-care (01) ==
LOC: JER 20:56
DX: T84.031A Mechanical loosening of internal left hip prosthetic joint, initial encounter (principal); E87.5 Hyperkalemia; I25.10 Atherosclerotic heart disease of native coronary artery without angina pectoris; I10 Essential (primary) hypertension; Z95.5 Presence of coronary angioplasty implant and graft; E11.9 Type 2 diabetes mellitus without complications; Z79.4 Long term (current) use of insulin; Z86.73 Personal history of transient ischemic attack (TIA), and cerebral infarction without residual deficits; Z96.643 Presence of artificial hip joint, bilateral; Z87.19 Personal history of other diseases of the digestive system; Z87.891 Personal history of nicotine dependence
CPT/HCPCS: 36415; 73523-TC-FY; 73700-TC-RT; 80048; 85025; 85610; 85651; 85730; 86140; 86850; 86900; 86901; 93005; 93010; 99281-25; 99282-25